=== PATIENT | female | born 1965 | race Two or more races ===

== ENCOUNTER 2018-02-02 08:37 | Emergency (ER) | payer OTHER ==
[2018-02-02] MEDS ORDERED: Sodium Chloride 0.9% 10 ML Syringe FLUSH PRN (08:50)
--- NOTE | 2018-02-02 09:17 | CT ---
CT cervical spine Technique: Multiple axial sections were obtained from above the C1 inferiorly to the bottom of T2. Reconstructed sagittal and coronal images were reviewed. Comparison: No prior cervical spine imaging. Findings: Mild disc space narrowing is noted at C4-C5, C5-C6 and C6-C7. Slight posterior osteophytes are noted C5-C6 and C6-C7. Anterior osteophytes are noted at C3-C4 through C6-C7. Vertebral body heights are maintained. Posterior skull base is intact. Vertebral bodies and posterior arches are intact. No fracture is seen. Mild right-sided neural foraminal stenosis is noted at C5-C6. No bony central canal stenosis is seen. Mild degenerative change is scattered throughout the apophyseal joints. Mild degenerative spurring is noted within the uncovertebral joints at C6-C7. Impression: 1. Mild diffuse degenerative change. 2. No acute fracture or abnormal subluxation is seen. Diagnostic code #2
--- NOTE | 2018-02-02 09:18 | CT ---
Head CT Technique: Multiple axial sections through the brain were obtained. Intravenous contrast was not utilized. Comparison: Prior head CT study of 11/13/15. Findings: Ventricles along with basal cisterns and sulci over the convexities appear within normal limits for the patient's age. No abnormal parenchymal densities are seen. No evidence of intracranial hemorrhage. No midline shift or mass effect is seen. Bone window settings were reviewed which shows no discrete calvarial abnormality. Visualized sinuses are clear. Impression: 1. Nothing acute is identified on noncontrast head CT exam. Diagnostic code #1
[2018-02-02] MEDS ORDERED: Acetaminophen/HYDROcodone 325-5 MG Tab PO ONE (09:47)
--- NOTE | 2018-02-02 09:51 | CR ---
Left knee: Four views of the left knee were obtained. Comparison: No prior study. Medial and lateral joint spaces are maintained in height. No joint effusion is seen. No fracture or other acute bony abnormality is seen. Small cyst is noted in a subchondral location within the patella which is felt to represent minimal degenerative change. Impression: 1. Incidental finding. Nothing acute is appreciated on left knee exam. Diagnostic code #2
--- NOTE | 2018-02-02 09:51 | CR ---
Chest: Frontal view of the chest was obtained. Comparison: Prior chest x-ray of 10/22/13 is available. Heart size is normal. Tortuous thoracic aorta is seen. Small hiatal hernia is seen. Nodule is identified within the right mid chest which appears stable and compatible with a granuloma. Lungs otherwise are clear. No pneumothorax is seen. No discrete bony abnormality is noted. Incidental note of scoliosis. Impression: 1. Incidental findings. Nothing acute is appreciated on frontal chest x-ray. Diagnostic code #2
--- NOTE | 2018-02-02 09:51 | CR ---
Right knee: Four views of the right knee were obtained. Comparison: No prior knee exam. Medial and lateral joint compartments are maintained in height. No joint effusion is seen. Minimal osteophytes are noted off the patella. No fracture or other abnormality is seen. Impression: 1. Minimal degenerative change. Nothing acute seen on right knee exam. Diagnostic code #2
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
[2018-02-02 10:40] VITALS: BP 138/88
== END 2018-02-02 10:38 | disposition home or self-care (01) ==
LOC: JD.ED 08:37
DX: S16.1XXA Strain of muscle, fascia and tendon at neck level, initial encounter (principal); S80.01XA Contusion of right knee, initial encounter; S80.02XA Contusion of left knee, initial encounter; T22.112A Burn of first degree of left forearm, initial encounter; Z88.5 Allergy status to narcotic agent; Z79.899 Other long term (current) drug therapy; V49.9XXA Car occupant (driver) (passenger) injured in unspecified traffic accident, initial encounter
CPT/HCPCS: 36415; 70450; 71045; 72125; 73564; 80053; 81001; 83690; 85025; 99285; A9270; G0480

== ENCOUNTER 2018-05-15 07:50 | Inpatient (IN) | payer MEDICAID ==
[~2018-05-15 07:50] MED LIST: Lactated Ringers 1,000 ML IV SCH; Lidocaine 1%/Sod Bicarbonate in NS 8.4% 1 ML Syringe IDERM PRN; Sodium Chloride 0.9% 10 ML Syringe FLUSH PRN
[2018-05-15] MEDS ORDERED: Lidocaine 1% with EPINEPHrine 1:100,000 20 ML MDV ONE (08:20)
[2018-05-15] MEDS ORDERED: Sodium Chloride 0.9% 50 ML SDV ONE (08:20)
[2018-05-15] MEDS ORDERED: Bupivacaine 0.5% 30 ML SDV ONE (08:20)
--- NOTE | 2018-05-15 08:33 | PCM.PREANE ---
Preanesthetic Assessment - Anesthesia/Transfusion/Family Hx Anesthesia History: Prior Anesthesia Without Reaction Family History of Anesthesia Reaction: No Transfusion History: No Prior Transfusion(s) Type of Transfusion Reactions: Reports: Unknown - Review of Systems General: No Symptoms Pulmonary: No Symptoms Cardiovascular: Dyspnea on Exertion Gastrointestinal: No Symptoms Neurological: No Symptoms Other: Reports: None - Physical Assessment NPO Status Date: 05/14/18 NPO Status Time: 00:00 Pulse: 66 O2 Sat by Pulse Oximetry: 95 Respiratory Rate: 20 Blood Pressure: 122/78 Temperature: 36.5 C Height: 1.57 m Weight: 80.286 kg ASA Class: 2 Mental Status: Alert & Oriented x3 Dentition: Reports: [place](s), Bridge (top) Thyro-Mental Finger Breadths: 2 Mouth Opening Finger Breadths: 2 ROM/Head Extension: Full Lungs: Clear to Auscultation, Normal Respiratory Effort Cardiovascular: Regular Rate, Regular Rhythm - Lab Values: on chart - Imaging/EKG Impressions: on chart SB 82 - Allergies Allergies/Adverse Reactions: Allergies Allergy/AdvReac Type Severity Reaction Status Date / Time codeine Allergy Chest Verified 05/14/18 13:41 Tightness - Blood Blood Available: No Product(s) Available: None - Anesthesia Plan Pre-Op Medication Ordered: None - Acknowledgements Anesthesia Type Planned: General Anesthesia Pt an Appropriate Candidate for the Planned Anesthesia: Yes Alternatives and Risks of Anesthesia Discussed w Pt/Guardian: Yes Pt/Guardian Understands and Agrees with Anesthesia Plan: Yes Additional Comments: No Blood due to her Jyoti. 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 (See Below) Other OB/BYN History: atrophic vaginitis, fibroid, pelvic cramping Musculoskeletal History: Reports: None Neurological History: Reports: Headaches, Chronic Psychiatric History: Reports: Depression Endocrine/Metabolic History: Reports: Obesity/BMI 30+, Vitamin D Deficiency Hematologic History: Reports: None Immunologic History: Reports: None Oncologic (Cancer) History: Reports: None Dermatologic History: Reports: None - Past Surgical History Head Surgeries/Procedures: Reports: None HEENT Surgical History: Reports: Cataract Surgery Cardiovascular Surgical History: Reports: None Respiratory Surgical History: Reports: None GI Surgical History: Reports: Appendectomy, Cholecystectomy, Hernia Repair/Other Other GI Surgeries/Procedures: suargery esophagus Endocrine Surgical History: Reports: None Neurological Surgical History: Reports: None Musculoskeletal Surgical History: Reports: None Oncologic Surgical History: Reports: None Dermatological Surgical History: Reports: None - SUBSTANCE USE Smoking Status *Q: Never Smoker Tobacco Use Within Last Twelve Months: No Second Hand Smoke Exposure: No Days Per Week of Alcohol Use: 0 Number of Drinks Per Day: 0 Total Drinks Per Week: 0 Recreational Drug Use History: No - HOME MEDS Home Medications: Home Meds Omeprazole 20 mg PO BID 05/14/18 [History] - CURRENT (IN HOUSE) MEDS Current Meds: Current Medications Lactated Ringer's (Ringers, Lactated) 1,000 mls @ 125 mls/hr IV ASDIRECTED ELISEO Stop: 05/15/18 23:00 Lidocaine/Sodium Bicarbonate (Buffered Lidocaine 1% In Ns 8.4%) 0.25 ml IDERM ONETIME PRN PRN Reason: Prior to IV Start Stop: 05/15/18 18:00 Sodium Chloride (Saline Flush) 10 ml FLUSH ASDIRECTED PRN PRN Reason: Keep Vein Open Stop: 05/15/18 18:00 Discontinued Medications Bupivacaine HCl (Marcaine 0.5%) Confirm Administered Dose 30 ml .ROUTE .STK-MED ONE Stop: 05/15/18 08:21 Lidocaine/Epinephrine (Xylocaine 1% With Epinephrine 1:100,000) Confirm Administered Dose 20 ml .ROUTE .STK-MED ONE Stop: 05/15/18 08:21 Sodium Chloride (Normal Saline) Confirm Administered Dose 50 ml .ROUTE .STK-MED ONE Stop: 05/15/18 08:21
[2018-05-15] MEDS ORDERED: Ondansetron 4 MG/2 ML SDV ONE (08:37)
[2018-05-15] MEDS ORDERED: Midazolam 1 MG/ML 2 ML SDV ONE (08:37)
[2018-05-15] MEDS ORDERED: Propofol 200 MG/20 ML SDV ONE (08:37)
[2018-05-15] MEDS ORDERED: Rocuronium 50 MG/5 ML Vial ONE (08:37)
[2018-05-15] MEDS ORDERED: fentaNYL 250 MCG/5 ML SDV ONE (08:37)
[2018-05-15] MEDS ORDERED: Lidocaine 1% 4 ML ONE (08:37)
[2018-05-15] MEDS ORDERED: Dexamethasone 4 MG/ML 5 ML MDV ONE (08:39)
[2018-05-15] MEDS ORDERED: ceFAZolin 1 GM Vial ONE (08:40)
[2018-05-15] MEDS ORDERED: Phenylephrine/Normal Saline 100 MCG/ML 10 ML Syringe ONE (09:14)
[2018-05-15] MEDS ORDERED: Lactated Ringers 1,000 ML ONE ×2 (09:15→10:40)
[2018-05-15] MEDS ORDERED: Meperidine 50 MG/ML Vial IVPUSH PRN (09:15)
[2018-05-15] MEDS ORDERED: HYDROmorphone 0.5 MG/0.5 ML Syringe IVPUSH PRN ×2 (09:15→14:22)
[2018-05-15] MEDS ORDERED: fentaNYL 100 MCG/2 ML SDV IVPUSH PRN (09:15)
[2018-05-15] MEDS ORDERED: Ondansetron 4 MG/2 ML SDV IVPUSH PRN ×2 (09:15→14:22)
[2018-05-15] MEDS ORDERED: HYDROmorphone 0.5 MG/0.5 ML Syringe ONE ×2 (09:39→10:06)
[2018-05-15] MEDS ORDERED: Ketamine 500 mg/10 ML MDV ONE (10:07)
[2018-05-15] MEDS ORDERED: Ketorolac 30 MG/ML SDV ONE (11:06)
--- NOTE | 2018-05-15 11:37 | PCM.POSTAN ---
POST ANESTHESIA ASSESSMENT - MENTAL STATUS Mental Status: Somnolent - VITAL SIGNS Pulse Rate: 74 SaO2: 96 Resp Rate: 17 Blood Pressure: 103/87 Temperature: 97 F - RESPIRATORY Respiratory Status: Respiratory Rate WNL, Airway Patent, O2 Saturation Stable, Supplemental Oxygen - CARDIOVASCULAR CV Status: Pulse Rate WNL, Blood Pressure Stable - GASTROINTESTINAL GI Status: No Symptoms - PAIN Pain Score: 0 - POST OP HYDRATION Hydration Status: Adequate & Stable
--- NOTE | 2018-05-15 12:01 | PCM.OPNOTE ---
- General Post-Op/Procedure Note Date of Surgery/Procedure: 05/15/18 Operative Procedure(s): Laparoscopic-assisted vaginal hysterectomy, bilateral salpingectomy, anterior repair and transvaginal tape mid urethral sling Findings: Overall normal-appearing uterus with normal-appearing bilateral tubes and ovaries. Grade 2-3 cystocele, minimal rectocele Pre Op Diagnosis: Female pelvic pain, dysmenorrhea, cystocele with rectocele and mixed stress and urge urinary incontinence Post-Op Diagnosis: Same Anesthesia Technique: General ET Tube Primary Surgeon: Mode Jones Anesthesia Provider: Seun Salgado Compress Engineer: Enoch Bernstein Reason Compress Engineer Was Necessary: Assist with retraction for visualization as well as laparoscopic skills for the laparoscopic-assisted vaginal hysterectomy for patient safety and reduction of morbidity and mortality Role of Compress Engineer: Retraction and allow for visualization during surgery as well as laparoscopic skills Pathology: Cervix, uterus and bilateral fallopian tubes Fluid Replacement, Intraop: 2,000 Output, Urine Amount: 275 EBL in mLs: 100 Complications: None Condition: Good Free Text/Narrative:: The patient was seen in the preoperative holding area and risks, benefits, indications, and alternatives of the procedure were reviewed with the patient and she desired to proceed with a laparoscopic assisted vaginal hysterectomy, bilateral salpingectomy, possible unilateral or bilateral salpingo-oophorectomy , possible total abdominal hysterectomy, anterior repair, possible posterior repair and mid urethral sling. Consents were reviewed. The patient was taken back to the OR and given general anesthesia with an endotracheal tube which was placed without difficulty. She was placed in dorsal lithotomy position using Yellofin stirrups. She was prepped and draped in normal sterile fashion. A Mckeon catheter was placed without difficulty. Attention was then turned to her umbilicus where a previous laparoscopic scar was visualized. This was injected with 0.5% Marcaine and a 5 mm stab incision was made with a scalpel and a Veress needle was then inserted through the incision. The gas was turned on, with an opening pressure of 6 mmHg. Pneumoperitoneum was continued until 15 mmHg pressure. A 5 mm trocar was then inserted under direct visualization through the incision without difficulty. A global view of the abdomen was taken and noted to be overall free of adhesions and it was felt that the case would be able to be accomplished laparoscopically. Attention was then turned to the suprapubic area and the skin was injected with local anesthetic. A skin incision was made using a scalpel. A 5 mm trocar was then inserted under direct visualization with laparoscope. Attention was then turned to the patient's right lower quadrant where an avascular space approximately snf between the ASIS and the umbilicus was identified. Local anesthetic was injected and a 5 mm incision was made with a scalpel. A 5 mm trocar was then inserted under direct visualization of the laparoscope. Attention was then turned to the left lower quadrant, where again an avascular portion of the abdominal wall was identified approximately snf between the ASIS and the umbilicus. Local anesthetic was injected and a scalpel was used to make a 5 mm incision. A 5 mm trocar was inserted under direct visualization with the laparoscope. Attention was then turned to the pelvis where the uterus was visualized and noted be normal in appearance with normal appearing bilateral fallopian tubes and normal-appearing bilateral ovaries. A LigaSure vessel sealing device was introduced and was used to transect the right fallopian tube and round ligament. The broad ligament connecting the right fallopian tube was transected from the ovary and underlying tissue. The right round ligament was then transected using the LigaSure device. The utero-ovarian ligament was then transected using the LigaSure device. The right side of the uterus and broad ligament were then transected using the LigaSure device until the level of the uterovesical peritoneal reflection. This was repeated on the patient's left side. The fallopian tube was transected from the underlying tissue using the LigaSure device. The utero-ovarian ligament was then transected using LigaSure device. Round ligament was transected using LigaSure device and the broad ligament was transected to the level of the uterovesical peritoneal reflection. The pelvis was then inspected for hemostasis at this time and hemostasis was noted. All instruments were removed from the abdomen. Attention was then turned to the patient's peritoneum where a weighted speculum was placed into the vagina and a [place] retractor was used to visualize the cervix. The cervix was grasped with a double-tooth tenaculum. The cervical reflection point was then injected circumferentially with 0.25% lidocaine with epinephrine. The cervix was then circumferentially incised with a scalpel. The bladder was then dissected off the pubovesical cervical fascia anteriorly with Metzenbaum scissors. The same procedure was performed posteriorly and the posterior cul-de-sac was entered sharply without difficulty using Metzenbaum scissors. At this point, a Maria Isabel clamp was placed over the uterosacral ligaments on the patient's left side. These were transected and suture ligated with 0 Monocryl. This was repeated on the patient's right side. Hemostasis was assured. The cardinal ligaments were then clamped on both sides, transected and suture ligated with 0 Monocryl. The uterine artery on the patient's right side side and the remainder of the broad ligament were then serially clamped with Maria Isabel clamps, transected and suture ligated with 0 Monocryl on both sides. Excellent hemostasis was noted. The cervix and uterus was able to be delivered at this time. There was noted to be bleeding from the right uterine artery pedicle and this was clamped with a Maria Isabel clamp transected and suture ligated using 0 Monocryl suture. The posterior vaginal cuff was closed with running locked sutures of 0 Monocryl. There was noted to be a grade 2-3 cystocele and grade 1 rectocele. The vaginal mucosa overlying the bladder was grasped using Allis clamps and was injected using [0.25% lidocaine with epinephrine]. The mucosa was then excised in a triangular fashion using a scalpel. The lateral sides of the bladder the mucosa was undermined using Veloz scissors. The vesicovaginal fascia was then reapproximated using 0-Monocryl suture with box sutures. The incision was closed using 3-0 Monocryl sutures in a running locked fashion. The vaginal cuff was then closed in a horizontal fashion using running sutures with 0 Monocryl suture. All instruments were removed from the vagina. Attention was then turned to the abdomen where a laparoscope was inserted and was used to check for hemostasis. Hemostasis was noted at this time. The gas was then evacuated from the peritoneum and trocars removed. An Allis clamp was placed approximately 2 cm below the urethral opening. A second Allis clamp was placed 2 cm below the first Allis clamp. The vaginal mucosa was then injected with 0.25% lidocaine with epinephrine. A scalpel was used to make a midline incision through the vaginal mucosa. Veloz scissors were used to dissect the vaginal mucosa from the underlying tissue on the patient's right side. This was carried out to the pubic rami. This was repeated on the left side and completed without difficulty. Attention was then turned to the patient's mons and the skin was injected with 0.25% lidocaine with epinephrine and bilateral sides up proximally 2 cm from midline. A stab incision was made with a scalpel bilateral sides without complications. The urethral sling hook was then used on the patient's left side and placed through the stab incision and with a finger in the vagina behind the pubic rami, the tip of the hook was felt and then directed out through the midline vaginal incision. The transvaginal tape was attached to the hook and pulled through the incision. Attention was then turned to the patient's right side where, again, the transvaginal hook was placed through the stab incision and with a finger in the vagina was directed posterior to the lateral pubic rami and directed through the vaginal incision. The other end of the tape was attached to the hook and pulled through, making sure that the tape was flat on the patient's incision. A Veloz scissors was used to allow for a tension-free placement of the tape. A cystoscopy was then performed and there was no evidence of injury to the bladder without any evidence of sling going through the bladder and bilateral ureteral jets were noted. The ends of the tape were then cut at the level of the skin on the patient on both sides at the stab incisions. Attention was then turned to the midline incision, which was closed using 3-0 Monocryl in a running fashion. The case was complete at this time. The laparoscopic port sites were closed using 4-0 Monocryl suture and Dermabond. The urethral sling stab incisions were closed using Dermabond glue. The case was completed at this time and all instruments were removed. The Mckeon catheter was discontinued at this time. The patient was awoken from general anesthesia and taken to the PACU for recovery in stable condition. She will be discharged to home once she is able to meet all postoperative milestones including tolerating small amount of oral intake and liquids, ambulate without difficulty, her pain controlled with oral medications and able to void without difficulty. She will follow-up in the clinic in 2-3 weeks or earlier as needed. Sponge, lap, needle, and instrument counts were correct x 2.
[2018-05-15] MEDS ORDERED: Famotidine 20 MG/2 ML SDV IVPUSH ONE (12:27)
[2018-05-15] MEDS ORDERED: Magnesium Hydroxide 400 MG/5 ML Susp 30 ML Cup PO PRN (14:22)
[2018-05-15] MEDS ORDERED: Acetaminophen/oxyCODONE 325-5 MG Tab PO PRN ×2 (14:22)
[2018-05-15] MEDS ORDERED: Promethazine 12.5 MG in Sodium Chloride 0.9% 50 ML IV PRN (14:22)
[2018-05-15] MEDS ORDERED: Ketorolac 15 MG/ML SDV IVPUSH SCH (14:22)
[2018-05-15] MEDS: Ondansetron 4 MG/2 ML SDV IVPUSH PRN ×2 (16:01→22:57)
[2018-05-15] MEDS: Ketorolac 15 MG/ML SDV IVPUSH SCH ×2 (17:04→23:03)
[2018-05-15] MEDS: Docusate Sodium 100 MG Cap PO SCH (23:25)
[2018-05-15] MEDS: Famotidine 20 MG Tab PO SCH (23:25)
[2018-05-16] MEDS ORDERED: Acetaminophen Soln 650 MG/20.3 ML UD Cup PO ONE (00:31)
[2018-05-16] MEDS: cefOXitin 1 GM in Premix Bag 1 BAG IV SCH ×2 (00:54→06:49)
[2018-05-16] MEDS: Ketorolac 15 MG/ML SDV IVPUSH SCH (05:24)
[2018-05-16 06:01] VITALS: BP 130/73
[2018-05-16] MEDS: Docusate Sodium 100 MG Cap PO SCH (08:05)
[2018-05-16] MEDS: Famotidine 20 MG Tab PO SCH (08:05)
[2018-05-16] MEDS ORDERED: Ibuprofen 600 MG Tab PO ONE (10:35)
--- NOTE | 2018-05-16 10:53 | PCM.DCSUM1 ---
Discharge Summary - Hospital Course Free Text/Narrative:: [facility] Post-Op/Procedure Note Patient Name: ALICIA CAGLE Date of : 61 Patient Status: Inpatient Attending Provider: Mode Jones Date: 05/15/18 11:50 Initialization Date: 05/15/18 11:50 - General Post-Op/Procedure Note Date of Surgery/Procedure: 05/15/18 Operative Procedure(s): Laparoscopic-assisted vaginal hysterectomy, bilateral salpingectomy, anterior repair and transvaginal tape mid urethral sling Findings: Overall normal-appearing uterus with normal-appearing bilateral tubes and ovaries. Grade 2-3 cystocele, minimal rectocele Pre Op Diagnosis: Female pelvic pain, dysmenorrhea, cystocele with rectocele and mixed stress and urge urinary incontinence Post-Op Diagnosis: Same Anesthesia Technique: General ET Tube Primary Surgeon: Mode Jones Anesthesia Provider: Seun Salgado Receiver Bulk System: Enoch Bernstein Reason Receiver Bulk System Was Necessary: Assist with retraction for visualization as well as laparoscopic skills for the laparoscopic-assisted vaginal hysterectomy for patient safety and reduction of morbidity and mortality Role of Receiver Bulk System: Retraction and allow for visualization during surgery as well as laparoscopic skills Pathology: Cervix, uterus and bilateral fallopian tubes Fluid Replacement, Intraop: 2,000 Output, Urine Amount: 275 EBL in mLs: 100 Complications: None Condition: Good Free Text/Narrative:: The patient was seen in the preoperative holding area and risks, benefits, indications, and alternatives of the procedure were reviewed with the patient and she desired to proceed with a laparoscopic assisted vaginal hysterectomy, bilateral salpingectomy, possible unilateral or bilateral salpingo-oophorectomy , possible total abdominal hysterectomy, anterior repair, possible posterior repair and mid urethral sling. Consents were reviewed. The patient was taken back to the OR and given general anesthesia with an endotracheal tube which was placed without difficulty. She was placed in dorsal lithotomy position using Yellofin stirrups. She was prepped and draped in normal sterile fashion. A Mckeon catheter was placed without difficulty. Attention was then turned to her umbilicus where a previous laparoscopic scar was visualized. This was injected with 0.5% Marcaine and a 5 mm stab incision was made with a scalpel and a Veress needle was then inserted through the incision. The gas was turned on, with an opening pressure of 6 mmHg. Pneumoperitoneum was continued until 15 mmHg pressure. A 5 mm trocar was then inserted under direct visualization through the incision without difficulty. A global view of the abdomen was taken and noted to be overall free of adhesions and it was felt that the case would be able to be accomplished laparoscopically. Attention was then turned to the suprapubic area and the skin was injected with local anesthetic. A skin incision was made using a scalpel. A 5 mm trocar was then inserted under direct visualization with laparoscope. Attention was then turned to the patient's right lower quadrant where an avascular space approximately prison between the ASIS and the umbilicus was identified. Local anesthetic was injected and a 5 mm incision was made with a scalpel. A 5 mm trocar was then inserted under direct visualization of the laparoscope. Attention was then turned to the left lower quadrant, where again an avascular portion of the abdominal wall was identified approximately prison between the ASIS and the umbilicus. Local anesthetic was injected and a scalpel was used to make a 5 mm incision. A 5 mm trocar was inserted under direct visualization with the laparoscope. Attention was then turned to the pelvis where the uterus was visualized and noted be normal in appearance with normal appearing bilateral fallopian tubes and normal-appearing bilateral ovaries. A LigaSure vessel sealing device was introduced and was used to transect the right fallopian tube and round ligament. The broad ligament connecting the right fallopian tube was transected from the ovary and underlying tissue. The right round ligament was then transected using the LigaSure device. The utero-ovarian ligament was then transected using the LigaSure device. The right side of the uterus and broad ligament were then transected using the LigaSure device until the level of the uterovesical peritoneal reflection. This was repeated on the patient's left side. The fallopian tube was transected from the underlying tissue using the LigaSure device. The utero-ovarian ligament was then transected using LigaSure device. Round ligament was transected using LigaSure device and the broad ligament was transected to the level of the uterovesical peritoneal reflection. The pelvis was then inspected for hemostasis at this time and hemostasis was noted. All instruments were removed from the abdomen. Attention was then turned to the patient's peritoneum where a weighted speculum was placed into the vagina and a [place] retractor was used to visualize the cervix. The cervix was grasped with a double-tooth tenaculum. The cervical reflection point was then injected circumferentially with 0.25% lidocaine with epinephrine. The cervix was then circumferentially incised with a scalpel. The bladder was then dissected off the pubovesical cervical fascia anteriorly with Metzenbaum scissors. The same procedure was performed posteriorly and the posterior cul-de-sac was entered sharply without difficulty using Metzenbaum scissors. At this point, a Maria Isabel clamp was placed over the uterosacral ligaments on the patient's left side. These were transected and suture ligated with 0 Monocryl. This was repeated on the patient's right side. Hemostasis was assured. The cardinal ligaments were then clamped on both sides, transected and suture ligated with 0 Monocryl. The uterine artery on the patient's right side side and the remainder of the broad ligament were then serially clamped with Maria Isabel clamps, transected and suture ligated with 0 Monocryl on both sides. Excellent hemostasis was noted. The cervix and uterus was able to be delivered at this time. There was noted to be bleeding from the right uterine artery pedicle and this was clamped with a Maria Isabel clamp transected and suture ligated using 0 Monocryl suture. The posterior vaginal cuff was closed with running locked sutures of 0 Monocryl. There was noted to be a grade 2-3 cystocele and grade 1 rectocele. The vaginal mucosa overlying the bladder was grasped using Allis clamps and was injected using [0.25% lidocaine with epinephrine]. The mucosa was then excised in a triangular fashion using a scalpel. The lateral sides of the bladder the mucosa was undermined using Veloz scissors. The vesicovaginal fascia was then reapproximated using 0-Monocryl suture with box sutures. The incision was closed using 3-0 Monocryl sutures in a running locked fashion. The vaginal cuff was then closed in a horizontal fashion using running sutures with 0 Monocryl suture. All instruments were removed from the vagina. Attention was then turned to the abdomen where a laparoscope was inserted and was used to check for hemostasis. Hemostasis was noted at this time. The gas was then evacuated from the peritoneum and trocars removed. An Allis clamp was placed approximately 2 cm below the urethral opening. A second Allis clamp was placed 2 cm below the first Allis clamp. The vaginal mucosa was then injected with 0.25% lidocaine with epinephrine. A scalpel was used to make a midline incision through the vaginal mucosa. Veloz scissors were used to dissect the vaginal mucosa from the underlying tissue on the patient's right side. This was carried out to the pubic rami. This was repeated on the left side and completed without difficulty. Attention was then turned to the patient's mons and the skin was injected with 0.25% lidocaine with epinephrine and bilateral sides up proximally 2 cm from midline. A stab incision was made with a scalpel bilateral sides without complications. The urethral sling hook was then used on the patient's left side and placed through the stab incision and with a finger in the vagina behind the pubic rami, the tip of the hook was felt and then directed out through the midline vaginal incision. The transvaginal tape was attached to the hook and pulled through the incision. Attention was then turned to the patient's right side where, again, the transvaginal hook was placed through the stab incision and with a finger in the vagina was directed posterior to the lateral pubic rami and directed through the vaginal incision. The other end of the tape was attached to the hook and pulled through, making sure that the tape was flat on the patient's incision. A Veloz scissors was used to allow for a tension-free placement of the tape. A cystoscopy was then performed and there was no evidence of injury to the bladder without any evidence of sling going through the bladder and bilateral ureteral jets were noted. The ends of the tape were then cut at the level of the skin on the patient on both sides at the stab incisions. Attention was then turned to the midline incision, which was closed using 3-0 Monocryl in a running fashion. The case was complete at this time. The laparoscopic port sites were closed using 4-0 Monocryl suture and Dermabond. The urethral sling stab incisions were closed using Dermabond glue. The case was completed at this time and all instruments were removed. The Mckeon catheter was discontinued at this time. The patient was awoken from general anesthesia and taken to the PACU for recovery in stable condition. She will be discharged to home once she is able to meet all postoperative milestones including tolerating small amount of oral intake and liquids, ambulate without difficulty, her pain controlled with oral medications and able to void without difficulty. She will follow-up in the clinic in 2-3 weeks or earlier as needed. Sponge, lap, needle, and instrument counts were correct x 2. HPI Initial Comments: [facility] Post-Op/Procedure Note Patient Name: ALICIA CAGLE Date of : 61 Patient Status: Inpatient Attending Provider: Mode Jones Date: 05/15/18 11:50 Initialization Date: 05/15/18 11:50 - General Post-Op/Procedure Note Date of Surgery/Procedure: 05/15/18 Operative Procedure(s): Laparoscopic-assisted vaginal hysterectomy, bilateral salpingectomy, anterior repair and transvaginal tape mid urethral sling Findings: Overall normal-appearing uterus with normal-appearing bilateral tubes and ovaries. Grade 2-3 cystocele, minimal rectocele Pre Op Diagnosis: Female pelvic pain, dysmenorrhea, cystocele with rectocele and mixed stress and urge urinary incontinence Post-Op Diagnosis: Same Anesthesia Technique: General ET Tube Primary Surgeon: Mode Jones Anesthesia Provider: Seun Salgado Receiver Bulk System: Enoch Bernstein Reason Receiver Bulk System Was Necessary: Assist with retraction for visualization as well as laparoscopic skills for the laparoscopic-assisted vaginal hysterectomy for patient safety and reduction of morbidity and mortality Role of Receiver Bulk System: Retraction and allow for visualization during surgery as well as laparoscopic skills Pathology: Cervix, uterus and bilateral fallopian tubes Fluid Replacement, Intraop: 2,000 Output, Urine Amount: 275 EBL in mLs: 100 Complications: None Condition: Good Free Text/Narrative:: The patient was seen in the preoperative holding area and risks, benefits, indications, and alternatives of the procedure were reviewed with the patient and she desired to proceed with a laparoscopic assisted vaginal hysterectomy, bilateral salpingectomy, possible unilateral or bilateral salpingo-oophorectomy , possible total abdominal hysterectomy, anterior repair, possible posterior repair and mid urethral sling. Consents were reviewed. The patient was taken back to the OR and given general anesthesia with an endotracheal tube which was placed without difficulty. She was placed in dorsal lithotomy position using Yellofin stirrups. She was prepped and draped in normal sterile fashion. A Mckeon catheter was placed without difficulty. Attention was then turned to her umbilicus where a previous laparoscopic scar was visualized. This was injected with 0.5% Marcaine and a 5 mm stab incision was made with a scalpel and a Veress needle was then inserted through the incision. The gas was turned on, with an opening pressure of 6 mmHg. Pneumoperitoneum was continued until 15 mmHg pressure. A 5 mm trocar was then inserted under direct visualization through the incision without difficulty. A global view of the abdomen was taken and noted to be overall free of adhesions and it was felt that the case would be able to be accomplished laparoscopically. Attention was then turned to the suprapubic area and the skin was injected with local anesthetic. A skin incision was made using a scalpel. A 5 mm trocar was then inserted under direct visualization with laparoscope. Attention was then turned to the patient's right lower quadrant where an avascular space approximately prison between the ASIS and the umbilicus was identified. Local anesthetic was injected and a 5 mm incision was made with a scalpel. A 5 mm trocar was then inserted under direct visualization of the laparoscope. Attention was then turned to the left lower quadrant, where again an avascular portion of the abdominal wall was identified approximately prison between the ASIS and the umbilicus. Local anesthetic was injected and a scalpel was used to make a 5 mm incision. A 5 mm trocar was inserted under direct visualization with the laparoscope. Attention was then turned to the pelvis where the uterus was visualized and noted be normal in appearance with normal appearing bilateral fallopian tubes and normal-appearing bilateral ovaries. A LigaSure vessel sealing device was introduced and was used to transect the right fallopian tube and round ligament. The broad ligament connecting the right fallopian tube was transected from the ovary and underlying tissue. The right round ligament was then transected using the LigaSure device. The utero-ovarian ligament was then transected using the LigaSure device. The right side of the uterus and broad ligament were then transected using the LigaSure device until the level of the uterovesical peritoneal reflection. This was repeated on the patient's left side. The fallopian tube was transected from the underlying tissue using the LigaSure device. The utero-ovarian ligament was then transected using LigaSure device. Round ligament was transected using LigaSure device and the broad ligament was transected to the level of the uterovesical peritoneal reflection. The pelvis was then inspected for hemostasis at this time and hemostasis was noted. All instruments were removed from the abdomen. Attention was then turned to the patient's peritoneum where a weighted speculum was placed into the vagina and a [place] retractor was used to visualize the cervix. The cervix was grasped with a double-tooth tenaculum. The cervical reflection point was then injected circumferentially with 0.25% lidocaine with epinephrine. The cervix was then circumferentially incised with a scalpel. The bladder was then dissected off the pubovesical cervical fascia anteriorly with Metzenbaum scissors. The same procedure was performed posteriorly and the posterior cul-de-sac was entered sharply without difficulty using Metzenbaum scissors. At this point, a Maria Isabel clamp was placed over the uterosacral ligaments on the patient's left side. These were transected and suture ligated with 0 Monocryl. This was repeated on the patient's right side. Hemostasis was assured. The cardinal ligaments were then clamped on both sides, transected and suture ligated with 0 Monocryl. The uterine artery on the patient's right side side and the remainder of the broad ligament were then serially clamped with Maria Isabel clamps, transected and suture ligated with 0 Monocryl on both sides. Excellent hemostasis was noted. The cervix and uterus was able to be delivered at this time. There was noted to be bleeding from the right uterine artery pedicle and this was clamped with a Maria Isabel clamp transected and suture ligated using 0 Monocryl suture. The posterior vaginal cuff was closed with running locked sutures of 0 Monocryl. There was noted to be a grade 2-3 cystocele and grade 1 rectocele. The vaginal mucosa overlying the bladder was grasped using Allis clamps and was injected using [0.25% lidocaine with epinephrine]. The mucosa was then excised in a triangular fashion using a scalpel. The lateral sides of the bladder the mucosa was undermined using Veloz scissors. The vesicovaginal fascia was then reapproximated using 0-Monocryl suture with box sutures. The incision was closed using 3-0 Monocryl sutures in a running locked fashion. The vaginal cuff was then closed in a horizontal fashion using running sutures with 0 Monocryl suture. All instruments were removed from the vagina. Attention was then turned to the abdomen where a laparoscope was inserted and was used to check for hemostasis. Hemostasis was noted at this time. The gas was then evacuated from the peritoneum and trocars removed. An Allis clamp was placed approximately 2 cm below the urethral opening. A second Allis clamp was placed 2 cm below the first Allis clamp. The vaginal mucosa was then injected with 0.25% lidocaine with epinephrine. A scalpel was used to make a midline incision through the vaginal mucosa. Veloz scissors were used to dissect the vaginal mucosa from the underlying tissue on the patient's right side. This was carried out to the pubic rami. This was repeated on the left side and completed without difficulty. Attention was then turned to the patient's mons and the skin was injected with 0.25% lidocaine with epinephrine and bilateral sides up proximally 2 cm from midline. A stab incision was made with a scalpel bilateral sides without complications. The urethral sling hook was then used on the patient's left side and placed through the stab incision and with a finger in the vagina behind the pubic rami, the tip of the hook was felt and then directed out through the midline vaginal incision. The transvaginal tape was attached to the hook and pulled through the incision. Attention was then turned to the patient's right side where, again, the transvaginal hook was placed through the stab incision and with a finger in the vagina was directed posterior to the lateral pubic rami and directed through the vaginal incision. The other end of the tape was attached to the hook and pulled through, making sure that the tape was flat on the patient's incision. A Veloz scissors was used to allow for a tension-free placement of the tape. A cystoscopy was then performed and there was no evidence of injury to the bladder without any evidence of sling going through the bladder and bilateral ureteral jets were noted. The ends of the tape were then cut at the level of the skin on the patient on both sides at the stab incisions. Attention was then turned to the midline incision, which was closed using 3-0 Monocryl in a running fashion. The case was complete at this time. The laparoscopic port sites were closed using 4-0 Monocryl suture and Dermabond. The urethral sling stab incisions were closed using Dermabond glue. The case was completed at this time and all instruments were removed. The Mckeon catheter was discontinued at this time. The patient was awoken from general anesthesia and taken to the PACU for recovery in stable condition. She will be discharged to home once she is able to meet all postoperative milestones including tolerating small amount of oral intake and liquids, ambulate without difficulty, her pain controlled with oral medications and able to void without difficulty. She will follow-up in the clinic in 2-3 weeks or earlier as needed. Sponge, lap, needle, and instrument counts were correct x 2. Brief History: [facility] . Post-Op/Procedure [facility]. [facility] [id number]. Date of : Patient Status: Inpatient. Attending Provider: Mode Jonescount Number : [id number]. Date: 05/15/18 11:50Initialization Date: 05/15/18 11:50. - General Post-Op/Procedure Note. Date of Surgery/Procedure: 05/15/18. Operative Procedure(s): Laparoscopic-assisted vaginal hysterectomy, bilateral salpingectomy, anterior repair and transvaginal tape mid urethral sling. Findings: Overall normal-appearing uterus with normal-appearing bilateral tubes and ovaries. Grade 2-3 cystocele, minimal rectocele. Pre Op Diagnosis: Female pelvic pain, dysmenorrhea, cystocele with rectocele and mixed stress and urge urinary incontinence. Post-Op Diagnosis: Same. Anesthesia Technique: General ET Tube. Primary Surgeon: Mode Jones. Anesthesia Provider: Seun Salgado. Receiver Bulk System: Enoch Bernstein. Reason Receiver Bulk System Was Necessary: Assist with retraction for visualization as well as laparoscopic skills for the laparoscopic-assisted vaginal hysterectomy for patient safety and reduction of morbidity and mortality. Role of Receiver Bulk System: Retraction and allow for visualization during surgery as well as laparoscopic skills. Pathology: Cervix , uterus and bilateral fallopian tubes. Fluid Replacement, Intraop: 2,000. Output, Urine Amount: 275. EBL in mLs: 100. Complications: None. Condition: Good. Free Text/Narrative:: The patient was seen in the preoperative holding area and risks, benefits, indications, and alternatives of the procedure were reviewed with the patient and she desired to proceed with a laparoscopic assisted vaginal hysterectomy, bilateral salpingectomy, possible unilateral or bilateral salpingo-oophorectomy, possible total abdominal hysterectomy, anterior repair, possible posterior repair and mid urethral sling. Consents were reviewed. The patient was taken back to the OR and given general anesthesia with an endotracheal tube which was placed without difficulty. She was placed in dorsal lithotomy position using Yellofin stirrups. She was prepped and draped in normal sterile fashion. A Mckeon catheter was placed without difficulty. Attention was then turned to her umbilicus where a previous laparoscopic scar was visualized. This was injected with 0.5% Marcaine and a 5 mm stab incision was made with a scalpel and a Veress needle was then inserted through the incision. The gas was turned on, with an opening pressure of 6 mmHg. Pneumoperitoneum was continued until 15 mmHg pressure. A 5 mm trocar was then inserted under direct visualization through the incision without difficulty. A global view of the abdomen was taken and noted to be overall free of adhesions and it was felt that the case would be able to be accomplished laparoscopically. Attention was then turned to the suprapubic area and the skin was injected with local anesthetic. A skin incision was made using a scalpel. A 5 mm trocar was then inserted under direct visualization with laparoscope. Attention was then turned to the patient's right lower quadrant where an avascular space approximately prison between the ASIS and the umbilicus was identified. Local anesthetic was injected and a 5 mm incision was made with a scalpel. A 5 mm trocar was then inserted under direct visualization of the laparoscope. Attention was then turned to the left lower quadrant, where again an avascular portion of the abdominal wall was identified approximately prison between the ASIS and the umbilicus. Local anesthetic was injected and a scalpel was used to make a 5 mm incision. A 5 mm trocar was inserted under direct visualization with the laparoscope. Attention was then turned to the pelvis where the uterus was visualized and noted be normal in appearance with normal appearing bilateral fallopian tubes and normal-appearing bilateral ovaries. A LigaSure vessel sealing device was introduced and was used to transect the right fallopian tube and round ligament. The broad ligament connecting the right fallopian tube was transected from the ovary and underlying tissue. The right round ligament was then transected using the LigaSure device. The utero-ovarian ligament was then transected using the LigaSure device. The right side of the uterus and broad ligament were then transected using the LigaSure device until the level of the uterovesical peritoneal reflection. This was repeated on the patient's left side. The fallopian tube was transected from the underlying tissue using the LigaSure device. The utero-ovarian ligament was then transected using LigaSure device. Round ligament was transected using LigaSure device and the broad ligament was transected to the level of the uterovesical peritoneal reflection. The pelvis was then inspected for hemostasis at this time and hemostasis was noted. All instruments were removed from the abdomen. Attention was then turned to the patient's peritoneum where a weighted speculum was placed into the vagina and a [place] retractor was used to visualize the cervix. The cervix was grasped with a double-tooth tenaculum. The cervical reflection point was then injected circumferentially with 0.25% lidocaine with epinephrine. The cervix was then circumferentially incised with a scalpel. The bladder was then dissected off the pubovesical cervical fascia anteriorly with Metzenbaum scissors. The same procedure was performed posteriorly and the posterior cul-de-sac was entered sharply without difficulty using Metzenbaum scissors. At this point, a Maria Isabel clamp was placed over the uterosacral ligaments on the patient's left side. These were transected and suture ligated with 0 Monocryl. This was repeated on the patient's right side. Hemostasis was assured. The cardinal ligaments were then clamped on both sides, transected and suture ligated with 0 Monocryl. The uterine artery on the patient's right side side and the remainder of the broad ligament were then serially clamped with Maria Isabel clamps, transected and suture ligated with 0 Monocryl on both sides. Excellent hemostasis was noted. The cervix and uterus was able to be delivered at this time. There was noted to be bleeding from the right uterine artery pedicle and this was clamped with a Maria Isabel clamp transected and suture ligated using 0 Monocryl suture. The posterior vaginal cuff was closed with running locked sutures of 0 Monocryl. There was noted to be a grade 2-3 cystocele and grade 1 rectocele. The vaginal mucosa overlying the bladder was grasped using Allis clamps and was injected using [0.25% lidocaine with epinephrine]. The mucosa was then excised in a triangular fashion using a scalpel. The lateral sides of the bladder the mucosa was undermined using Veloz scissors. The vesicovaginal fascia was then reapproximated using 0-Monocryl suture with box sutures. The incision was closed using 3-0 Monocryl sutures in a running locked fashion. The vaginal cuff was then closed in a horizontal fashion using running sutures with 0 Monocryl suture. All instruments were removed from the vagina. Attention was then turned to the abdomen where a laparoscope was inserted and was used to check for hemostasis. Hemostasis was noted at this time. The gas was then evacuated from the peritoneum and trocars removed. An Allis clamp was placed approximately 2 cm below the urethral opening. A second Allis clamp was placed 2 cm below the first Allis clamp. The vaginal mucosa was then injected with 0.25% lidocaine with epinephrine. A scalpel was used to make a midline incision through the vaginal mucosa. Veloz scissors were used to dissect the vaginal mucosa from the underlying tissue on the patient's right side. This was carried out to the pubic rami. This was repeated on the left side and completed without difficulty. Attention was then turned to the patient's mons and the skin was injected with 0.25% lidocaine with epinephrine and bilateral sides up proximally 2 cm from midline. A stab incision was made with a scalpel bilateral sides without complications. The urethral sling hook was then used on the patient's left side and placed through the stab incision and with a finger in the vagina behind the pubic rami, the tip of the hook was felt and then directed out through the midline vaginal incision. The transvaginal tape was attached to the hook and pulled through the incision. Attention was then turned to the patient's right side where, again, the transvaginal hook was placed through the stab incision and with a finger in the vagina was directed posterior to the lateral pubic rami and directed through the vaginal incision. The other end of the tape was attached to the hook and pulled through, making sure that the tape was flat on the patient's incision. A Veloz scissors was used to allow for a tension-free placement of the tape. A cystoscopy was then performed and there was no evidence of injury to the bladder without any evidence of sling going through the bladder and bilateral ureteral jets were noted. The ends of the tape were then cut at the level of the skin on the patient on both sides at the stab incisions. Attention was then turned to the midline incision, which was closed using 3-0 Monocryl in a running fashion. The case was complete at this time. The laparoscopic port sites were closed using 4-0 Monocryl suture and Dermabond. The urethral sling stab incisions were closed using Dermabond glue. The case was completed at this time and all instruments were removed. The Mckeon catheter was discontinued at this time. The patient was awoken from general anesthesia and taken to the PACU for recovery in stable condition. She will be discharged to home once she is able to meet all postoperative milestones including tolerating small amount of oral intake and liquids, ambulate without difficulty, her pain controlled with oral medications and able to void without difficulty. She will follow-up in the clinic in 2-3 weeks or earlier as needed. Sponge, lap, needle, and instrument counts were correct x 2. Diagnosis: Stroke: No - Discharge Data Discharge Date: 05/16/18 Discharge Disposition: Home, Self-Care 01 Condition: Good - Discharge Diagnosis/Problem(s) (1) Cystocele with rectocele SNOMED Code(s): 189446789 ICD Code: N81.10 - CYSTOCELE, UNSPECIFIED; N81.6 - RECTOCELE Status: Acute Current Visit: Yes (2) Pelvic pain SNOMED Code(s): 85639856 ICD Code: R10.2 - PELVIC AND PERINEAL PAIN Status: Acute Current Visit: Yes (3) S/P laparoscopic hysterectomy SNOMED Code(s): 867488411, 526359127 ICD Code: Z90.710 - ACQUIRED ABSENCE OF BOTH CERVIX AND UTERUS Status: Acute Current Visit: Yes (4) Stress incontinence of urine SNOMED Code(s): 72949577 ICD Code: N39.3 - STRESS INCONTINENCE (FEMALE) (MALE) Status: Acute Current Visit: Yes - Patient Summary/Data Operative Procedure(s) Performed: Laparoscopic-assisted vaginal hysterectomy, bilateral salpingectomy, anterior repair and transvaginal tape mid urethral sling Complications: None Consults: None Hospital Course: Uneventful - Patient Instructions Diet: Regular Diet as Tolerated Activity: Apply Ice, As Tolerated, No Lifting Over 20 Pounds Activity, Other: Nothing in the vagina for 6 weeks Driving: Do Not Drive (While taking narcotic pain medications) Showering/Bathing: May Shower, No Tub Bathing/Swimming (For 48 hours after surgery) Wound/Incision Care: Keep Operative Site/Wound Site Clean and Dry Notify Provider of: Fever, Increased Pain, Swelling and Redness, Drainage, Nausea and/or Vomiting Other/Special Instructions: Contact our office if you have heavy vaginal bleeding enough to soak a pad in less than an hour. Contact our office if you are unable to void or feel significant bladder pressure and are unable to void - Discharge Plan *PRESCRIPTION DRUG MONITORING PROGRAM REVIEWED*: Yes *COPY OF PRESCRIPTION DRUG MONITORING REPORT IN PATIENT OBEY: No (Patient with one prescription in January 2018 and no others in the system.) Prescriptions/Med Rec: Docusate Sodium [Colace] 100 mg PO BID #60 capsule Ibuprofen [Motrin] 600 mg PO Q6H PRN #60 tab PRN Reason: Pain oxyCODONE HCl/Acetaminophen [Percocet 5-325 mg Tablet] 1 - 2 each PO Q6H PRN # 30 tablet PRN Reason: Pain Home Medications: Home Meds Omeprazole 20 mg PO BID 05/14/18 [History] Docusate Sodium [Colace] 100 mg PO BID #60 capsule 05/15/18 [Rx] Ibuprofen [Motrin] 600 mg PO Q6H PRN #60 tab 05/15/18 [Rx] oxyCODONE HCl/Acetaminophen [Percocet 5-325 mg Tablet] 1 - 2 each PO Q6H PRN # 30 tablet 05/15/18 [Rx] Patient Handouts: Laparoscopically Assisted Vaginal Hysterectomy, Care After, Urethral Vaginal Sling, Care After, Anterior and Posterior Colporrhaphy Referrals: Mode Jones MD [Primary Care Provider] - (Follow-up in 2-3 weeks or earlier as needed for postop exam.) - Discharge Summary/Plan Comment DC Time >30 min.: No - Patient Data Vitals - Most Recent: Last Vital Signs Temp 99.1 F 05/16/18 05:32 Pulse 76 05/16/18 05:32 Resp 14 05/16/18 06:06 BP 130/73 05/16/18 05:32 Pulse Ox 94 L 05/16/18 06:06 Weight - Most Recent: 177 lb I&O - Last 24 hours: Intake & Output 05/15/18 05/16/18 05/16/18 22:59 06:59 14:59 Intake Total 100 1400 Output Total 500 1400 550 Balance -400 0 -550 Lab Results - Last 24 hrs: Laboratory Results - last 24 hr 05/16/18 Range/Units 05:20 WBC 9.72 (3.98-10.04) K/mm3 RBC 4.59 (3.98-5.22) M/mm3 Hgb 12.1 (11.2-15.7) gm/L Hct 36.1 (34.1-44.9) % MCV 78.6 L (79.4-94.8) fl MCH 26.4 (25.6-32.2) pg MCHC 33.5 (32.2-35.5) g/dl RDW Std Deviation 41.2 (36.4-46.3) fL Plt Count 189 (182-369) K/mm3 MPV 11.2 (9.4-12.3) fl Neut % (Auto) 75.5 H (34.0-71.1) % Lymph % (Auto) 14.5 L (19.3-51.7) % Phillips % (Auto) 9.8 (4.7-12.5) % Eos % (Auto) 0 L (0.7-5.8) Baso % (Auto) 0.1 (0.1-1.2) % Neut # (Auto) 7.34 H (1.56-6.13) K/mm3 Lymph # (Auto) 1.41 (1.18-3.74) K/mm3 Phillips # (Auto) 0.95 H (0.24-0.36) K/mm3 Eos # (Auto) 0.00 L (0.04-0.36) K/mm3 Baso # (Auto) 0.01 (0.01-0.08) K/mm3 Med Orders - Current: Current Medications Docusate Sodium (Colace) 100 mg PO BID [facility] Last Admin: 05/16/18 08:05 Dose: 100 mg Famotidine (Pepcid) 20 mg PO BID [facility] Last Admin: 05/16/18 08:05 Dose: 20 mg Hydromorphone HCl (Dilaudid) 0.2 mg IVPUSH Q2H PRN PRN Reason: Pain (severe 7-10) Promethazine HCl 12.5 mg/ (Sodium Chloride) 50.5 mls @ 200 mls/hr IV Q6H PRN PRN Reason: Nausea/Vomiting Last Admin: 05/15/18 18:35 Dose: 200 mls/hr Cefoxitin Sodium 1 gm/ Premix 50 mls @ 100 mls/hr IV Q6H [facility] Last Admin: 05/16/18 06:49 Dose: 100 mls/hr Magnesium Hydroxide (Milk Of Magnesia) 30 ml PO BID PRN PRN Reason: Constipation Ondansetron HCl (Zofran) 4 mg IVPUSH Q4H PRN PRN Reason: Nausea Last Admin: 05/15/18 22:57 Dose: 4 mg Oxycodone/Acetaminophen (Percocet 325-5 Mg) 1 tab PO Q6H PRN PRN Reason: Pain (moderate 4-6) Oxycodone/Acetaminophen (Percocet 325-5 Mg) 2 tab PO Q6H PRN PRN Reason: Pain (severe 7-10) Discontinued Medications Acetaminophen (Tylenol) 650 mg PO ONETIME ONE Stop: 05/16/18 00:32 Last Admin: 05/16/18 00:54 Dose: 650 mg Bupivacaine HCl (Marcaine 0.5%) Confirm Administered Dose 30 ml .ROUTE .STK-MED ONE Stop: 05/15/18 08:21 Last Admin: 05/15/18 09:25 Dose: 10 ml Cefazolin Sodium (Ancef) Confirm Administered Dose 2 gm .ROUTE .STK-MED ONE Stop: 05/15/18 08:41 Dexamethasone (Dexamethasone) Confirm Administered Dose 20 mg .ROUTE .STK-MED ONE Stop: 05/15/18 08:40 Famotidine (Pepcid) 20 mg IVPUSH ONETIME ONE Stop: 05/15/18 12:28 Last Admin: 05/15/18 12:35 Dose: 20 mg Fentanyl (Sublimaze) Confirm Administered Dose 250 mcg .ROUTE .STK-MED ONE Stop: 05/15/18 08:38 Fentanyl (Sublimaze) 50 mcg IVPUSH Q5M PRN PRN Reason: Pain Stop: 05/15/18 18:00 Last Admin: 05/15/18 12:53 Dose: 50 mcg Hydromorphone HCl (Dilaudid) 0.5 mg IVPUSH ONETIME PRN PRN Reason: Pain (severe 7-10) Stop: 05/15/18 18:00 Last Admin: 05/15/18 13:17 Dose: 0.5 mg Hydromorphone HCl (Dilaudid) Confirm Administered Dose 0.5 mg .ROUTE .STK-MED ONE Stop: 05/15/18 09:40 Hydromorphone HCl (Dilaudid) Confirm Administered Dose 0.5 mg .ROUTE .STK-MED ONE Stop: 05/15/18 10:07 Lactated Ringer's (Ringers, Lactated) 1,000 mls @ 125 mls/hr IV ASDIRECTED [facility] Stop: 05/15/18 23:00 Last Admin: 05/15/18 08:25 Dose: 125 mls/hr Lidocaine HCl (Xylocaine-Mpf 1%) Confirm Administered Dose 4 mls @ as directed .ROUTE .STK-MED ONE Stop: 05/15/18 08:38 Lactated Ringer's (Ringers, Lactated) Confirm Administered Dose 1,000 mls @ as directed .ROUTE .STK-MED ONE Stop: 05/15/18 09:16 Lactated Ringer's (Ringers, Lactated) Confirm Administered Dose 1,000 mls @ as directed .ROUTE .STK-MED ONE Stop: 05/15/18 10:41 Ibuprofen (Motrin) 600 mg PO ONETIME ONE Stop: 05/16/18 10:36 Last Admin: 05/16/18 10:42 Dose: 600 mg Ketamine HCl (Ketalar) Confirm Administered Dose 500 mg .ROUTE .STK-MED ONE Stop: 05/15/18 10:08 Ketorolac Tromethamine (Toradol) Confirm Administered Dose 30 mg .ROUTE .STK- MED ONE Stop: 05/15/18 11:07 Ketorolac Tromethamine (Toradol) 30 mg IVPUSH Q6H [facility] Stop: 05/16/18 02:23 Last Admin: 05/15/18 15:57 Dose: Not Given Ketorolac Tromethamine (Toradol) 30 mg IVPUSH Q6H [facility] Stop: 05/16/18 05:01 Last Admin: 05/16/18 05:24 Dose: 30 mg Lidocaine/Epinephrine (Xylocaine 1% With Epinephrine 1:100,000) Confirm Administered Dose 20 ml .ROUTE .STK-MED ONE Stop: 05/15/18 08:21 Last Admin: 05/15/18 09:51 Dose: 10 ml Lidocaine/Sodium Bicarbonate (Buffered Lidocaine 1% In Ns 8.4%) 0.25 ml IDERM ONETIME PRN PRN Reason: Prior to IV Start Stop: 05/15/18 18:00 Last Admin: 05/15/18 08:24 Dose: 0.25 ml Meperidine HCl (Meperidine) 12.5 mg IVPUSH ONETIME PRN PRN Reason: shivering Stop: 05/15/18 18:00 Midazolam HCl (Versed 1 Mg/Ml) Confirm Administered Dose 2 mg .ROUTE .STK-MED ONE Stop: 05/15/18 08:38 Ondansetron HCl (Zofran) Confirm Administered Dose 4 mg .ROUTE .STK-MED ONE Stop: 05/15/18 08:38 Ondansetron HCl (Zofran) 4 mg IVPUSH ONETIME PRN PRN Reason: Nausea/Vomiting Stop: 05/15/18 18:00 Last Admin: 05/15/18 12:19 Dose: 4 mg Ondansetron HCl (Zofran) 4 mg IVPUSH Q6H PRN PRN Reason: Nausea/Vomiting Phenylephrine HCl (Phenylephrine In Ns 100 Mcg/Ml) Confirm Administered Dose 1 mg .ROUTE .STK-MED ONE Stop: 05/15/18 09:15 Propofol (Diprivan 20 Ml) Confirm Administered Dose 200 mg .ROUTE .STK-MED ONE Stop: 05/15/18 08:38 Rocuronium [place] (Zemuron) Confirm Administered Dose 50 mg .ROUTE .STK-MED ONE Stop: 05/15/18 08:38 Sodium Chloride (Saline Flush) 10 ml FLUSH ASDIRECTED PRN PRN Reason: Keep Vein Open Stop: 05/15/18 18:00 Sodium Chloride (Normal Saline) Confirm Administered Dose 50 ml .ROUTE .STK-MED ONE Stop: 05/15/18 08:21 Last Admin: 05/15/18 09:51 Dose: 28 ml
== END 2018-05-16 11:53 | disposition home or self-care (01) | DRG 743 ==
LOC: JD.SDS 07:50 → JD.OB 13:39
PROVIDERS: ADMIT Obstetrics & Gynecology; ATTEND Obstetrics & Gynecology
PROC: 0UT9FZZ Resection of Uterus, Via Natural or Artificial Opening With Percutaneous Endoscopic Assistance (ICD-10-PCS; principal; 2018-05-15)
PROC: 0UT7FZZ Resection of Bilateral Fallopian Tubes, Via Natural or Artificial Opening With Percutaneous Endoscopic Assistance (ICD-10-PCS; principal; 2018-05-15)
PROC: 0JQC3ZZ Repair Pelvic Region Subcutaneous Tissue and Fascia, Percutaneous Approach (ICD-10-PCS; principal; 2018-05-15)
PROC: 0TSD4ZZ Reposition Urethra, Percutaneous Endoscopic Approach (ICD-10-PCS; principal; 2018-05-15)
DX: N81.4 Uterovaginal prolapse, unspecified (principal); N39.46 Mixed incontinence; R10.2 Pelvic and perineal pain; N94.6 Dysmenorrhea, unspecified; K21.9 Gastro-esophageal reflux disease without esophagitis; G47.00 Insomnia, unspecified; E66.9 Obesity, unspecified; Z88.6 Allergy status to analgesic agent; Z91.048 Other nonmedicinal substance allergy status; Z79.899 Other long term (current) drug therapy; Z68.32 Body mass index [BMI] 32.0-32.9, adult; G89.29 Other chronic pain; F32.9 Major depressive disorder, single episode, unspecified; Z90.49 Acquired absence of other specified parts of digestive tract
CPT/HCPCS: 36415; 81001; 81025; 85025; 94660; A9270-GY; J0690; J0694; J1100; J1170; J1885; J2001; J2250; J2370; J2405; J2550; J2704; J3010; J3490; J7050; J7120

== ENCOUNTER 2018-11-17 19:11 | Emergency (ER) | payer MEDICAID ==
[2018-11-17 19:51] VITALS: BP 158/103
[2018-11-17] MEDS ORDERED: Acetaminophen/HYDROcodone 325-5 MG Tab PO ONE (21:17)
--- NOTE | 2018-11-17 22:20 | EDM.PDOC ---
ED HPI GENERAL MEDICAL PROBLEM - General Chief Complaint: Chest Pain Stated Complaint: CHEST PAIN Time Seen by Provider: 11/17/18 19:53 Source of Information: Reports: Patient, RN Notes Reviewed - History of Present Illness INITIAL COMMENTS - FREE TEXT/NARRATIVE: 53-year-old female developed some left chest discomfort last evening that has continued quite steady today. She states she does have history of hiatal hernia , does get nauseated and vomit on occasion. She had some vomiting yesterday and then started having the chest discomfort after that. She is not short of breath. It does not hurt to breathe. No major abdominal discomfort at this time. No history of hypertension, heart disease or diabetes. Left Chest Pain Score (Numeric/FACES): 8 - Related Data Allergies Allergy/AdvReac Type Severity Reaction Status Date / Time codeine Allergy Chest Verified 11/17/18 19:51 Tightness Home Meds: Home Meds Omeprazole 20 mg PO BID 05/14/18 [History] Ibuprofen [Motrin] 600 mg PO Q6H PRN #60 tab 05/15/18 [Rx] Sucralfate [Carafate] 10 ml PO BID PRN 11/17/18 [History] Past Medical History HEENT History: Reports: Allergic Rhinitis, Cataract, Other (See Below) Other HEENT History: ceruminosis, R ear otitis externa, acute conjuctivitis, dental abcess, wears glasses Cardiovascular History: Reports: None Respiratory History: Reports: Other (See Below) Other Respiratory History: pneumonia Gastrointestinal History: Reports: GERD, Hiatal Hernia Other Gastrointestinal History: nausea and vomiting Genitourinary History: Reports: Pyelonephritis, Other (See Below) Other Genitourinary History: L flank pain MEDICAL RADIATION THERAPIST History: Reports: Other (See Below) Other MEDICAL RADIATION THERAPIST History: atrophic vaginitis, fibroid, pelvic cramping Musculoskeletal History: Reports: None Neurological History: Reports: Headaches, Chronic Psychiatric History: Reports: Depression Endocrine/Metabolic History: Reports: Obesity/BMI 30+, Vitamin D Deficiency Hematologic History: Reports: None Immunologic History: Reports: None Oncologic (Cancer) History: Reports: None Dermatologic History: Reports: None - Past Surgical History Head Surgeries/Procedures: Reports: None HEENT Surgical History: Reports: Cataract Surgery Cardiovascular Surgical History: Reports: None Respiratory Surgical History: Reports: None GI Surgical History: Reports: Appendectomy, Cholecystectomy, Hernia Repair/Other Other GI Surgeries/Procedures: suargery esophagus Endocrine Surgical History: Reports: None Neurological Surgical History: Reports: None Musculoskeletal Surgical History: Reports: None Oncologic Surgical History: Reports: None Dermatological Surgical History: Reports: None Social & Family History - Family History Family Medical History: Noncontributory - Tobacco Use Smoking Status *Q: Never Smoker - Caffeine Use Caffeine Use: Reports: Coffee, Soda - Recreational Drug Use Recreational Drug Use: No - Living Situation & Occupation Living situation: Reports: with Family ED ROS GENERAL - Review of Systems Review Of Systems: See Below Constitutional: Denies: Fever, Chills, Diaphoresis HEENT: Denies: Throat Pain Respiratory: Denies: Shortness of Breath, Pleuritic Chest Pain, Cough Cardiovascular: Reports: Chest Pain GI/Abdominal: Reports: Nausea, Vomiting. Denies: Abdominal Pain, Diarrhea Musculoskeletal: Denies: Shoulder Pain, Arm Pain, Back Pain Skin: Reports: No Symptoms Neurological: Denies: Numbness, Tingling ED EXAM, GENERAL - Physical Exam Exam: See Below General Appearance: Alert, Mild Distress Throat/Mouth: Normal Inspection, Normal Oropharynx Head: Atraumatic Respiratory/Chest: No Respiratory Distress, Lungs Clear, Normal Breath Sounds Cardiovascular: Regular Rate, Rhythm, Other (She does have a couple of areas of tenderness left upper chest) GI/Abdominal: Soft, Non-Tender Back Exam: No: CVA Tenderness (L), CVA Tenderness (R) Extremities: Normal Inspection Neurological: Alert, Oriented, No Motor/Sensory Deficits Psychiatric: Other Skin Exam: Warm, Normal Color EKG INTERPRETATION EKG Date: 11/17/18 Rhythm: NSR Bozman: Normal P-Wave: Present QRS: Normal ST-T: Normal QT: Normal Course - Vital Signs Text/Narrative:: Did come back normal. He was starting to have increased discomfort at the time of results so at that time did order d-dimer and a repeat over 2 hour troponin. Second troponin did also come back normal. Chest x-ray normal, d-dimer 0.55 Last Recorded V/S: Last Vital Signs Temp 97.9 F 11/17/18 19:45 Pulse 70 11/17/18 19:45 Resp 20 11/17/18 19:45 BP 158/103 H 11/17/18 19:45 Pulse Ox 95 11/17/18 19:45 - Orders/Labs/Meds Orders: Active Orders 24 hr Category Date Time Status EKG 12 Lead [EKG Documentation Completion] [RC] STAT Care 11/17/18 20:24 Active Chest 1V Frontal [CR] Stat Exams 11/17/18 20:24 Taken Labs: Laboratory Tests 11/17/18 11/17/18 11/17/18 Range/Units 20:40 20:46 21:40 D-Dimer, Quantitative 0.55 H (0.19-0.50) mg/L Troponin I < 0.017 < 0.017 (0.00-0.056) ng/mL Meds: Medications Discontinued Medications Generic Name Dose Route Start Last Admin Trade Name [place] PRN Reason Stop Dose Admin Hydrocodone Bitart/Acetaminophen 1 tab 11/17/18 21:17 11/17/18 21:29 [place] 325-5 Mg PO 11/17/18 21:18 1 tab ONETIME ONE Administration - Re-Assessments/Exams Free Text/Narrative Re-Assessment/Exam: 11/18/18 04:51 Initial troponin came back normal. Liver at time of results her discomfort was increased, continuing left upper chest area. Therefore second troponin was ordered which also did come back normal. D-dimer was also ordered which came back at 0.55, very acceptable for her age of 53. Chest x-ray was normal. He did have a couple of areas of tenderness left chest. She likely suffered some muscle strain associated with her vomiting. EKG did not show any acute changes. Monitor his been sinus rhythm, no ectopy. Discharge instructions as documented. Departure - Departure Time of Disposition: 22:19 Disposition: Home, Self-Care 01 Condition: Fair Clinical Impression: Chest wall pain, Atypical chest pain Instructions: Chest Wall Pain, [id number] Referrals: Daren Parra MD [Primary Care Provider] - Forms: ED Department Discharge Additional Instructions: Rest, no heavy lifting until pain resolving, you can alternate ice and heat to areas of soreness. Advil or ibuprofen 600 mg 2-3 times daily for pain, be sure to take that with food. Tylenol or acetaminophen in between doses for extra pain relief as needed but not more than 3 times daily. Do not work tomorrow. Increase activity slowly as tolerated, look clinic if not much better within 3- 4 days as expected. Return to ED as needed if symptoms worsening in any way. - My Orders Last 24 Hours: My Active Orders 11/17/18 20:24 EKG 12 Lead [EKG Documentation Completion] [RC] STAT Chest 1V Frontal [CR] Stat - Assessment/Plan Last 24 Hours: My Active Orders 11/17/18 20:24 EKG 12 Lead [EKG Documentation Completion] [RC] STAT Chest 1V Frontal [CR] Stat
--- NOTE | 2018-11-18 07:02 | CR ---
Chest: Portable view of the chest was obtained. Comparison: Prior chest x-ray of 02/02/18. Heart is mildly enlarged. Small hiatal hernia is seen. Small nodule is noted within the right mid lung which correlates to a granuloma and is stable. Lungs otherwise are clear and show no acute parenchymal change. Bony structures are grossly intact. Impression: 1. Stable cardiomegaly and other incidental findings. 2. Nothing acute is appreciated on portable chest x-ray. Diagnostic code #2
== END 2018-11-17 22:29 | disposition home or self-care (01) ==
LOC: JD.ED 19:11
DX: R07.89 Other chest pain (principal); Z88.5 Allergy status to narcotic agent
CPT/HCPCS: 36415; 71045; 84484; 85379; 93005; 99285; A9270; 93010; 99284

== ENCOUNTER 2019-01-21 22:42 | Emergency (ER) | payer MEDICAID ==
--- NOTE | 2019-01-21 23:47 | EDM.PDOC ---
ED HPI GENERAL MEDICAL PROBLEM - General Chief Complaint: Upper Extremity Injury/Pain Stated Complaint: LUMP ON RIGHT ARM Time Seen by Provider: 01/21/19 23:07 Source of Information: Reports: Patient History Limitations: Reports: No Limitations - History of Present Illness INITIAL COMMENTS - FREE TEXT/NARRATIVE: The patient presents with right arm swelling and pain. One week ago she had a cardiac cath and they went through the right wrist. She has some ecchymosis at the wrist and swelling with some swelling in near the elbow. She has some achy pain up her arm into her axilla. She has no history of DVTs or PEs. She is not on any blood thinners. She has no chest pain or shortness of breath. This started about 2 days ago. Onset: Gradual Duration: Day(s): Location: Reports: Upper Extremity, Right Quality: Reports: Ache Severity: Mild Improves with: Reports: None Worsens with: Reports: None Associated Symptoms: Reports: No Other Symptoms Treatments VP [employer]ETING: Reports: Other (see below) Other Treatments [employer]ET[employer]: none Right Arm Pain Score (Numeric/FACES): 4 - Related Data Allergies Allergy/AdvReac Type Severity Reaction Status Date / Time codeine Allergy Chest Verified 11/17/18 19:51 Tightness Home Meds: Home Meds Sucralfate [Carafate] 10 ml PO BID PRN 11/17/18 [History] Esomeprazole Magnesium [Nexium] 20 mg PO DAILY 01/21/19 [History] oxyCODONE HCl/Acetaminophen [Oxycodone-Acetaminophen 5-325] 1 tab PO ASDIRECTED 01/21/19 [History] Past Medical History HEENT History: Reports: Allergic Rhinitis, Cataract, Other (See Below) Other HEENT History: ceruminosis, R ear otitis externa, acute conjuctivitis, dental abcess, wears glasses Cardiovascular History: Reports: None, Other (See Below) Other Cardiovascular History: angiogram Respiratory History: Reports: Other (See Below) Other Respiratory History: pneumonia Gastrointestinal History: Reports: GERD, Hiatal Hernia Other Gastrointestinal History: nausea and vomiting Genitourinary History: Reports: Pyelonephritis, Other (See Below) Other Genitourinary History: L flank pain 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 History: atrophic vaginitis, fibroid, pelvic cramping Musculoskeletal History: Reports: None Neurological History: Reports: Headaches, Chronic Psychiatric History: Reports: Depression Endocrine/Metabolic History: Reports: Obesity/BMI 30+, Vitamin D Deficiency Hematologic History: Reports: None Immunologic History: Reports: None Oncologic (Cancer) History: Reports: None Dermatologic History: Reports: None - Past Surgical History Head Surgeries/Procedures: Reports: None HEENT Surgical History: Reports: Cataract Surgery Cardiovascular Surgical History: Reports: None Respiratory Surgical History: Reports: None GI Surgical History: Reports: Appendectomy, Cholecystectomy, Hernia Repair/Other Other GI Surgeries/Procedures: suargery esophagus Endocrine Surgical History: Reports: None Neurological Surgical History: Reports: None Musculoskeletal Surgical History: Reports: None Oncologic Surgical History: Reports: None Dermatological Surgical History: Reports: None Social & Family History - Family History Family Medical History: Noncontributory - Tobacco Use Smoking Status *Q: Never Smoker - Caffeine Use Caffeine Use: Reports: Coffee, Soda, Tea - Recreational Drug Use Recreational Drug Use: No - Living Situation & Occupation Living situation: Reports: with Family Review of Systems - Review of Systems Review Of Systems: See Below Constitutional: Reports: No Symptoms Eyes: Reports: No Symptoms Ears: Reports: No Symptoms Nose: Reports: No Symptoms Mouth/Throat: Reports: No Symptoms Respiratory: Reports: No Symptoms Cardiovascular: Reports: No Symptoms GI/Abdominal: Reports: No Symptoms Genitourinary: Reports: No Symptoms Musculoskeletal: Reports: Other (Pain, swelling and ecchymosis right arm) ED EXAM, GENERAL - Physical Exam Exam: See Below Exam Limited By: No Limitations General Appearance: Alert, No Apparent Distress Ears: Normal External Exam Nose: Normal Inspection Head: Atraumatic, Normocephalic Neck: Normal Inspection Respiratory/Chest: No Respiratory Distress Extremities: Other (Edema and ecchymosis at the right inner wrist. Edema to the medial AC area on the right arm. Good sensation and pulses distally.) Course - Vital Signs Last Recorded V/S: Last Vital Signs Temp 98.2 F 01/22/19 02:04 Pulse 74 01/22/19 02:04 Resp 16 01/22/19 02:04 BP 132/86 01/22/19 02:04 Pulse Ox 95 01/22/19 02:04 - Orders/Labs/Meds Orders: Active Orders 24 hr Category Date Time Status Cardiac Monitoring [RC] . DIRECTED Care 01/22/19 01:29 Active Cardiac Monitoring [RC] . DIRECTED Care 01/22/19 01:30 Active EKG Documentation Completion [RC] STAT Care 01/22/19 01:29 Active VL Duplex Upr Ext Veins Ltd Rt [US] Stat Exams 01/21/19 23:26 Taken Labs: Laboratory Tests 01/22/19 01/22/19 Range/Units 01:52 01:52 WBC 6.03 (3.98-10.04) K/mm3 RBC 5.04 (3.98-5.22) M/mm3 Hgb 12.7 (11.2-15.7) gm/L Hct 39.1 (34.1-44.9) % MCV 77.6 L (79.4-94.8) fl MCH 25.2 L (25.6-32.2) pg MCHC 32.5 (32.2-35.5) g/dl RDW Std Deviation 40.5 (36.4-46.3) fL Plt Count 221 (182-369) K/mm3 MPV 11.2 (9.4-12.3) fl Neut % (Auto) 55.3 (34.0-71.1) % Lymph % (Auto) 32.7 (19.3-51.7) % [place] % (Auto) 8.6 (4.7-12.5) % Eos % (Auto) 2.8 (0.7-5.8) Baso % (Auto) 0.3 (0.1-1.2) % Neut # (Auto) 3.33 (1.56-6.13) K/mm3 Lymph # (Auto) 1.97 (1.18-3.74) K/mm3 [place] # (Auto) 0.52 H (0.24-0.36) K/mm3 Eos # (Auto) 0.17 (0.04-0.36) K/mm3 Baso # (Auto) 0.02 (0.01-0.08) K/mm3 Sodium 142 (136-145) mEq/L Potassium 3.7 (3.5-5.1) mEq/L Chloride 108 H (98-107) mEq/L Carbon Dioxide 26 (21-32) mEq/L Anion Gap 11.7 (5-15) BUN 17 (7-18) mg/dL Creatinine 0.7 (0.55-1.02) mg/dL Est Cr Clr Drug Dosing 70.98 mL/min Estimated GFR (MDRD) > 60 (>60) mL/min BUN/Creatinine Ratio 24.3 H (14-18) Glucose 115 H (74-106) mg/dL Calcium 9.4 (8.5-10.1) mg/dL Total Bilirubin 0.2 (0.2-1.0) mg/dL AST 11 L (15-37) U/L ALT 41 (14-59) U/L Alkaline Phosphatase 116 (46-116) U/L Troponin I < 0.017 (0.00-0.056) ng/mL Total Protein 7.2 (6.4-8.2) g/dl Albumin 3.4 (3.4-5.0) g/dl Globulin 3.8 gm/dL Albumin/Globulin Ratio 0.9 L (1-2) Meds: Medications Discontinued Medications Generic Name Dose Route Start Last Admin Trade Name Freq PRN Reason Stop Dose Admin Al Hydroxide/Mg Hydroxide 30 0 ml 01/22/19 01:38 01/22/19 01:42 ml/ Lidocaine HCl 15 ml PO 01/22/19 01:39 45 ml ONETIME ONE Administration Ondansetron HCl 4 mg 01/22/19 01:30 01/22/19 01:36 Zofran Odt PO 01/22/19 01:31 4 mg ONETIME ONE Administration - Re-Assessments/Exams Free Text/Narrative Re-Assessment/Exam: 01/21/19 23:46 I have ordered an US of her right arm. 01/22/19 02:40 Her US shows no acute findings. No evidence of deep vein thrombosis. The patient had some indigestion and vomited. I gave her some zofran and got an EKG that showed no acute changes. Her CBC and CMP look good and her troponin was negative. Departure - Departure Time of Disposition: 02:45 Disposition: Home, Self-Care 01 Condition: Good Clinical Impression: Hiatal hernia with GERD and esophagitis, Swelling of right upper extremity - Discharge Information *PRESCRIPTION DRUG MONITORING PROGRAM REVIEWED*: No *COPY OF PRESCRIPTION DRUG MONITORING REPORT IN PATIENT OBEY: No Referrals: Daren Parra MD [Primary Care Provider] - Forms: ED Department Discharge Additional Instructions: Put some warm compresses on your wrist a couple times per day. Take your medication as prescribed. Please return if you are worse. - My Orders Last 24 Hours: My Active Orders 01/21/19 23:26 VL Duplex Upr Ext Veins Ltd Rt [US] Stat 01/22/19 01:29 Cardiac Monitoring [RC] . DIRECTED EKG Documentation Completion [RC] STAT 01/22/19 01:30 Cardiac Monitoring [RC] . DIRECTED - Assessment/Plan Last 24 Hours: My Active Orders 01/21/19 23:26 VL Duplex Upr Ext Veins Ltd Rt [US] Stat 01/22/19 01:29 Cardiac Monitoring [RC] . DIRECTED EKG Documentation Completion [RC] STAT 01/22/19 01:30 Cardiac Monitoring [RC] . DIRECTED
[2019-01-22] MEDS ORDERED: Ondansetron 4 MG Tab.DIS PO ONE (01:30)
[2019-01-22] MEDS ORDERED: Alum Hydrox/Mag Hydrox/Simeth 30 ML, Lidocaine 2% 15 ML PO ONE ×2 (01:38)
[2019-01-22 02:05] VITALS: BP 132/86
--- NOTE | 2019-01-22 06:27 | US ---
Right upper extremity venous ultrasound: Duplex and color flow imaging was obtained of the right internal jugular, subclavian, axillary, brachial, basilic, cephalic, radial and ulnar veins. Findings: Mild subcutaneous edema is seen in the area of bruising Normal phasic flow, augmentation and compression are seen. Left internal jugular is also patent. Impression: 1. Slight edema in area of bruising. 2. No evidence of venous thrombosis within the right upper extremity or left internal jugular vein. Diagnostic code #2 I agree with preliminary report from [facility], finalized on 01/22/19, 3:19 AM Central Time
== END 2019-01-22 02:50 | disposition home or self-care (01) ==
LOC: JD.ED 22:42
DX: K44.9 Diaphragmatic hernia without obstruction or gangrene (principal); K21.0 Gastro-esophageal reflux disease with esophagitis; M79.89 Other specified soft tissue disorders; Z79.899 Other long term (current) drug therapy
CPT/HCPCS: 36415; 80053; 84484; 85025; 93005; 93971; 99284; A9270; 99283

== ENCOUNTER 2019-05-10 09:50 | Emergency (ER) | payer MEDICAID ==
[2019-05-10 09:59] VITALS: BP 124/87
[2019-05-10] MEDS ORDERED: Sodium Chloride 0.9% 10 ML Syringe FLUSH PRN (10:31)
--- NOTE | 2019-05-10 10:35 | EDM.PDOC ---
ED HPI GENERAL MEDICAL PROBLEM - General Chief Complaint: Chest Pain Stated Complaint: CHEST PAIN Time Seen by Provider: 05/10/19 10:22 Source of Information: Reports: Patient, RN Notes Reviewed - History of Present Illness INITIAL COMMENTS - FREE TEXT/NARRATIVE: 54-year-old lady had onset of severe anterior chest discomfort about an hour ago. There was mid chest pain with radiation up to the neck but not into the shoulder or arm. This lasted about 10 or 15 minutes and then did go away. She has had this multiple times in the past year or 2. She has had an angiogram and that time her arteries were clear, no blockage. She has been told that her symptoms are due to GERD. She has no history for hypertension diabetes or other known medical problems. She did not gets nauseated but did get somewhat weak and dizzy. She does feel much better at this time. Chest Pain Score (Numeric/FACES): 5 - Related Data Allergies Allergy/AdvReac Type Severity Reaction Status Date / Time codeine Allergy Chest Verified 05/10/19 09:58 Tightness Home Meds: Home Meds Sucralfate [Carafate] 10 ml PO BID PRN 11/17/18 [History] Esomeprazole Magnesium [Nexium] 20 mg PO DAILY 01/21/19 [History] oxyCODONE HCl/Acetaminophen [Oxycodone-Acetaminophen 5-325] 1 tab PO ASDIRECTED 01/21/19 [History] Nitroglycerin [Nitrostat] 1 tab PO ASDIRECTED PRN 05/10/19 [History] Past Medical History HEENT History: Reports: Allergic Rhinitis, Cataract, Other (See Below) Other HEENT History: ceruminosis, R ear otitis externa, acute conjuctivitis, dental abcess, wears glasses Cardiovascular History: Reports: None, Other (See Below) Other Cardiovascular History: angiogram Respiratory History: Reports: Other (See Below) Other Respiratory History: pneumonia Gastrointestinal History: Reports: GERD, Hiatal Hernia Other Gastrointestinal History: nausea and vomiting Genitourinary History: Reports: Pyelonephritis Other Genitourinary History: L flank pain ; hiatial hernia 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: atrophic vaginitis, fibroid, pelvic cramping Musculoskeletal History: Reports: None Neurological History: Reports: Headaches, Chronic Psychiatric History: Reports: Depression Endocrine/Metabolic History: Reports: Obesity/BMI 30+, Vitamin D Deficiency Hematologic History: Reports: None Immunologic History: Reports: None Oncologic (Cancer) History: Reports: None Dermatologic History: Reports: None - Past Surgical History Head Surgeries/Procedures: Reports: None HEENT Surgical History: Reports: Cataract Surgery Cardiovascular Surgical History: Reports: None Respiratory Surgical History: Reports: None GI Surgical History: Reports: Appendectomy, Cholecystectomy, Hernia Repair/Other Other GI Surgeries/Procedures: suargery esophagus Female Surgical History: Reports: Other (See Below) Other Female Surgeries/Procedures: surgery on hiatial hernia in [place] Endocrine Surgical History: Reports: None Neurological Surgical History: Reports: None Musculoskeletal Surgical History: Reports: None Oncologic Surgical History: Reports: None Dermatological Surgical History: Reports: None Social & Family History - Family History Family Medical History: Noncontributory - Tobacco Use Smoking Status *Q: Never Smoker - Caffeine Use Caffeine Use: Reports: Coffee - Recreational Drug Use Recreational Drug Use: No - Living Situation & Occupation Living situation: Reports: with Family ED ROS GENERAL - Review of Systems Review Of Systems: See Below Constitutional: Denies: Fever, Chills, Diaphoresis HEENT: Reports: No Symptoms Respiratory: Denies: Shortness of Breath, Pleuritic Chest Pain Cardiovascular: Reports: Chest Pain (gone). Denies: Palpitations GI/Abdominal: Denies: Abdominal Pain, Nausea, Vomiting Musculoskeletal: Denies: Arm Pain, Back Pain Skin: Reports: No Symptoms Neurological: Reports: No Symptoms ED EXAM, GENERAL - Physical Exam Exam: See Below General Appearance: Alert, No Apparent Distress Throat/Mouth: Normal Inspection, Normal Oropharynx Head: Atraumatic Neck: Supple Respiratory/Chest: No Respiratory Distress, Lungs Clear, Normal Breath Sounds Cardiovascular: Regular Rate, Rhythm GI/Abdominal: Soft, Non-Tender. No: Guarding Extremities: Normal Inspection, Normal Range of Motion Skin Exam: Warm, Dry, Normal Color EKG INTERPRETATION EKG Date: 05/10/19 Rhythm: NSR [place]: Normal P-Wave: Present QRS: Normal ST-T: Other (There are T-wave inversions in lead III, no ST elevation or depression) Course - Vital Signs Last Recorded V/S: Last Vital Signs Temp 97.2 F 05/10/19 09:52 Pulse 74 05/10/19 09:52 Resp 22 H 05/10/19 09:52 BP 124/87 05/10/19 09:52 Pulse Ox 97 05/10/19 09:52 - Orders/Labs/Meds Labs: Laboratory Tests 05/10/19 05/10/19 Range/Units 09:56 09:56 WBC 5.34 (3.98-10.04) K/mm3 RBC 5.28 H (3.98-5.22) M/mm3 Hgb 12.9 (11.2-15.7) gm/L Hct 39.7 (34.1-44.9) % MCV 75.2 L (79.4-94.8) fl MCH 24.4 L (25.6-32.2) pg MCHC 32.5 (32.2-35.5) g/dl RDW Std Deviation 41.8 (36.4-46.3) fL Plt Count 223 (182-369) K/mm3 MPV 11.0 (9.4-12.3) fl Neut % (Auto) 58.1 (34.0-71.1) % Lymph % (Auto) 30.9 (19.3-51.7) % [place] % (Auto) 7.9 (4.7-12.5) % Eos % (Auto) 2.1 (0.7-5.8) Baso % (Auto) 0.6 (0.1-1.2) % Neut # (Auto) 3.11 (1.56-6.13) K/mm3 Lymph # (Auto) 1.65 (1.18-3.74) K/mm3 [place] # (Auto) 0.42 H (0.24-0.36) K/mm3 Eos # (Auto) 0.11 (0.04-0.36) K/mm3 Baso # (Auto) 0.03 (0.01-0.08) K/mm3 Sodium 140 (136-145) mEq/L Potassium 4.0 (3.5-5.1) mEq/L Chloride 106 (98-107) mEq/L Carbon Dioxide 27 (21-32) mEq/L Anion Gap 11.0 (5-15) BUN 17 (7-18) mg/dL Creatinine 0.7 (0.55-1.02) mg/dL Est Cr Clr Drug Dosing 70.98 mL/min Estimated GFR (MDRD) > 60 (>60) mL/min BUN/Creatinine Ratio 24.3 H (14-18) Glucose 104 (74-106) mg/dL Calcium 9.1 (8.5-10.1) mg/dL Total Bilirubin 0.3 (0.2-1.0) mg/dL AST 14 L (15-37) U/L ALT 28 (14-59) U/L Alkaline Phosphatase 107 (46-116) U/L Troponin I < 0.017 (0.00-0.056) ng/mL Total Protein 7.7 (6.4-8.2) g/dl Albumin 3.7 (3.4-5.0) g/dl Globulin 4.0 gm/dL Albumin/Globulin Ratio 0.9 L (1-2) Meds: Medications Discontinued Medications Generic Name Dose Route Start Last Admin Trade Name Freq PRN Reason Stop Dose Admin Sodium Chloride 10 ml 05/10/19 10:31 05/10/19 10:33 Saline Flush FLUSH 10 ml ASDIRECTED PRN Administration Keep Vein Open - Re-Assessments/Exams Free Text/Narrative Re-Assessment/Exam: 05/16/19 13:51 EKG, trop, other labs did come back normal, discharge instr. as documented. Departure - Departure Time of Disposition: 11:55 Disposition: Home, Self-Care 01 Condition: Fair Clinical Impression: Atypical chest pain Instructions: Nonspecific Chest Pain, [id number] Referrals: Daren Parra MD [Primary Care Provider] - Forms: ED Department Discharge Additional Instructions: Rest, continue current medications, follow-up clinic if having further episodes of chest discomfort. Return to ED as needed if symptoms worsening in any way.
== END 2019-05-10 12:03 | disposition home or self-care (01) ==
LOC: JD.ED 09:50
DX: R07.89 Other chest pain (principal); K21.9 Gastro-esophageal reflux disease without esophagitis; E66.9 Obesity, unspecified; Z68.34 Body mass index [BMI] 34.0-34.9, adult; Z90.49 Acquired absence of other specified parts of digestive tract; Z88.5 Allergy status to narcotic agent
CPT/HCPCS: 36415; 80053; 84484; 85025; 93005; 99285-25

== ENCOUNTER 2019-07-03 07:44 | Emergency (ER) | payer MEDICAID ==
[2019-07-03 07:59] VITALS: BP 128/80; PULSE 85
[2019-07-03] MEDS ORDERED: Ondansetron 4 MG/2 ML SDV IVPUSH ONE (08:17)
[2019-07-03] MEDS ORDERED: Sodium Chloride 0.9% 10 ML Syringe FLUSH PRN (08:17)
[2019-07-03] MEDS ORDERED: Sodium Chloride 0.9% 1,000 ML IV STA (08:17)
--- NOTE | 2019-07-03 08:23 | EDM.PDOC ---
ED HPI GENERAL MEDICAL PROBLEM - General Chief Complaint: Gastrointestinal Problem Stated Complaint: VOMITING Time Seen by Provider: 07/03/19 08:03 Source of Information: Reports: Patient History Limitations: Reports: No Limitations - History of Present Illness INITIAL COMMENTS - FREE TEXT/NARRATIVE: The patient presents with nausea and vomiting. She says yesterday she bit down hard on a piece of chicken and felt pain to the left upper molar. She was worried she may get an infection and toothache so she took a penicillin, percocet and tramadol. She woke up this morning with nausea and vomiting. She has a headache. She has no abdominal pain, fever, chills, cough, chest pain or shortness of breath. She has no pain in the tooth and no swelling. Onset: Gradual Duration: Hour(s): Location: Reports: Head Quality: Reports: Ache Severity: Mild Improves with: Reports: None Worsens with: Reports: None Associated Symptoms: Reports: Headaches, Nausea/Vomiting. Denies: Chest Pain, Cough, Fever/Chills, Shortness of Breath Headache Pain Score (Numeric/FACES): 5 - Related Data Allergies Allergy/AdvReac Type Severity Reaction Status Date / Time codeine Allergy Chest Verified 07/03/19 07:59 Tightness Home Meds: Home Meds Sucralfate [Carafate] 10 ml PO BID PRN 11/17/18 [History] Esomeprazole Magnesium [Nexium] 20 mg PO DAILY 01/21/19 [History] oxyCODONE HCl/Acetaminophen [Oxycodone-Acetaminophen 5-325] 1 tab PO ASDIRECTED 01/21/19 [History] Nitroglycerin [Nitrostat] 1 tab PO ASDIRECTED PRN 05/10/19 [History] Ondansetron [Zofran ODT] 4 mg PO Q6H PRN #20 tab.dis 07/03/19 [Rx] Past Medical History HEENT History: Reports: Allergic Rhinitis, Cataract, Other (See Below) Other HEENT History: ceruminosis, R ear otitis externa, acute conjuctivitis, dental abcess, wears glasses Cardiovascular History: Reports: None, Other (See Below) Other Cardiovascular History: angiogram Respiratory History: Reports: Other (See Below) Other Respiratory History: pneumonia Gastrointestinal History: Reports: GERD, Hiatal Hernia Other Gastrointestinal History: nausea and vomiting Genitourinary History: Reports: Pyelonephritis Other Genitourinary History: L flank pain ; hiatial hernia SKID WRAPPER History: Reports: Other (See Below) Other SKID WRAPPER History: atrophic vaginitis, fibroid, pelvic cramping Musculoskeletal History: Reports: None Neurological History: Reports: Headaches, Chronic Psychiatric History: Reports: Depression Endocrine/Metabolic History: Reports: Obesity/BMI 30+, Vitamin D Deficiency Hematologic History: Reports: None Immunologic History: Reports: None Oncologic (Cancer) History: Reports: None Dermatologic History: Reports: None - Past Surgical History Head Surgeries/Procedures: Reports: None HEENT Surgical History: Reports: Cataract Surgery Cardiovascular Surgical History: Reports: None Respiratory Surgical History: Reports: None GI Surgical History: Reports: Appendectomy, Cholecystectomy, Hernia Repair/Other Other GI Surgeries/Procedures: suargery esophagus Female Surgical History: Reports: Other (See Below) Other Female Surgeries/Procedures: surgery on hiatial hernia in [place] Endocrine Surgical History: Reports: None Neurological Surgical History: Reports: None Musculoskeletal Surgical History: Reports: None Oncologic Surgical History: Reports: None Dermatological Surgical History: Reports: None Social & Family History - Family History Family Medical History: Noncontributory - Caffeine Use Caffeine Use: Reports: Coffee - Living Situation & Occupation Living situation: Reports: with Family ED ROS GENERAL - Review of Systems Review Of Systems: See Below Constitutional: Reports: No Symptoms HEENT: Reports: No Symptoms Respiratory: Reports: No Symptoms Cardiovascular: Reports: No Symptoms Endocrine: Reports: No Symptoms GI/Abdominal: Reports: Nausea, Vomiting. Denies: Abdominal Pain, Diarrhea : Reports: No Symptoms Musculoskeletal: Reports: No Symptoms ED EXAM, GI/ABD - Physical Exam Exam: See Below Exam Limited By: No Limitations General Appearance: Alert, No Apparent Distress Ears: Normal External Exam Nose: Normal Inspection Throat/Mouth: Other (No erythema, edema or pain upon palpation) Head: Atraumatic, Normocephalic Neck: Normal Inspection Respiratory/Chest: No Respiratory Distress, Lungs Clear, Normal Breath Sounds Cardiovascular: Regular Rate, Rhythm, No Edema, No Murmur GI/Abdominal Exam: Soft, Non-Tender, No Organomegaly, No Mass Course - Vital Signs Last Recorded V/S: Last Vital Signs Temp 98.3 F 07/03/19 07:55 Pulse 85 07/03/19 07:55 Resp 18 07/03/19 07:55 BP 128/80 07/03/19 07:55 Pulse Ox 99 07/03/19 07:55 - Orders/Labs/Meds Orders: Active Orders 24 hr Category Date Time Status Peripheral IV Care [RC] . DIRECTED Care 07/03/19 08:17 Active Sodium Chloride 0.9% [Saline Flush] Med 07/03/19 08:17 Active 10 ml FLUSH ASDIRECTED PRN Peripheral IV Insertion Adult [OM.PC] Stat Oth 07/03/19 08:17 Ordered Medication Orders Sodium Chloride (Saline Flush) 10 ml FLUSH ASDIRECTED PRN PRN Reason: Keep Vein Open Last Admin: 07/03/19 08:28 Dose: 10 ml Labs: Laboratory Tests 07/03/19 07/03/19 07/03/19 Range/Units 08:00 08:00 08:20 WBC 4.94 (3.98-10.04) K/mm3 RBC 5.39 H (3.98-5.22) M/mm3 Hgb 13.0 (11.2-15.7) gm/dl Hct 41.1 (34.1-44.9) % MCV 76.3 L (79.4-94.8) fl MCH 24.1 L (25.6-32.2) pg MCHC 31.6 L (32.2-35.5) g/dl RDW Std Deviation 44.3 (36.4-46.3) fL Plt Count 204 (182-369) K/mm3 MPV 10.4 (9.4-12.3) fl Neut % (Auto) 63.2 (34.0-71.1) % Lymph % (Auto) 27.7 (19.3-51.7) % [place] % (Auto) 7.5 (4.7-12.5) % Eos % (Auto) 1.2 (0.7-5.8) Baso % (Auto) 0.4 (0.1-1.2) % Neut # (Auto) 3.12 (1.56-6.13) K/mm3 Lymph # (Auto) 1.37 (1.18-3.74) K/mm3 [place] # (Auto) 0.37 H (0.24-0.36) K/mm3 Eos # (Auto) 0.06 (0.04-0.36) K/mm3 Baso # (Auto) 0.02 (0.01-0.08) K/mm3 Sodium 141 (136-145) mEq/L Potassium 3.9 (3.5-5.1) mEq/L Chloride 105 (98-107) mEq/L Carbon Dioxide 28 (21-32) mEq/L Anion Gap 11.9 (5-15) BUN 15 (7-18) mg/dL Creatinine 0.6 (0.55-1.02) mg/dL Est Cr Clr Drug Dosing 82.80 mL/min Estimated GFR (MDRD) > 60 (>60) mL/min BUN/Creatinine Ratio 25.0 H (14-18) Glucose 102 (74-106) mg/dL Calcium 9.0 (8.5-10.1) mg/dL Total Bilirubin 0.4 (0.2-1.0) mg/dL AST 12 L (15-37) U/L ALT 28 (14-59) U/L Alkaline Phosphatase 100 (46-116) U/L Total Protein 7.1 (6.4-8.2) g/dl Albumin 3.3 L (3.4-5.0) g/dl Globulin 3.8 gm/dL Albumin/Globulin Ratio 0.9 L (1-2) Urine Color Yellow (Yellow) Urine Appearance Clear (Clear) Urine pH 7.0 (5.0-8.0) Ur Specific [place] 1.020 (1.005-1.030) Urine Protein Negative (Negative) Urine Glucose (UA) Negative (Negative) Urine Ketones Negative (Negative) Urine Occult Blood Negative (Negative) Urine Nitrite Negative (Negative) Urine Bilirubin Negative (Negative) Urine Urobilinogen 0.2 (0.2-1.0) Ur Leukocyte Esterase 1+ H (Negative) Urine RBC 0-5 (0-5) /hpf Urine WBC 0-5 (0-5) /hpf Ur Epithelial Cells 5-10 H (0-5) /hpf Urine Bacteria Rare (FEW) /hpf Urine Mucus Many H (FEW) /hpf Meds: Medications Generic Name Dose Route Start Last Admin Trade Name Freq PRN Reason Stop Dose Admin Sodium Chloride 10 ml 07/03/19 08:17 07/03/19 08:28 Saline Flush FLUSH 10 ml ASDIRECTED PRN Administration Keep Vein Open Discontinued Medications Generic Name Dose Route Start Last Admin Trade Name [place] PRN Reason Stop Dose Admin Sodium Chloride 1,000 mls @ 1,000 mls/hr 07/03/19 08:17 07/03/19 08:28 Normal Saline IV 07/03/19 09:16 1,000 mls/hr .BOLUS STA Administration Metoclopramide HCl 10 mg 07/03/19 09:24 Reglan IVPUSH 07/03/19 09:25 ONETIME ONE Ondansetron HCl 4 mg 07/03/19 08:17 07/03/19 08:28 Zofran IVPUSH 07/03/19 08:18 4 mg ONETIME ONE Administration - Re-Assessments/Exams Free Text/Narrative Re-Assessment/Exam: 07/03/19 08:22 I ordered an IV NS bolus, zofran 4mg IV, labs and a UA. 07/03/19 09:28 Her CBC and CMP look good. Her UA shows no UTI. She still is a little nauseated and has a headache. I ordered reglan 10mg IV and some tylenol. I will then discharge her home with some zofran. Departure - Departure Time of Disposition: 09:30 Disposition: Home, Self-Care 01 Condition: Good Clinical Impression: Nausea, Drug side effects - Discharge Information *PRESCRIPTION DRUG MONITORING PROGRAM REVIEWED*: No *COPY OF PRESCRIPTION DRUG MONITORING REPORT IN PATIENT OBEY: No Prescriptions: Ondansetron [Zofran ODT] 4 mg PO Q6H PRN #20 tab.dis PRN Reason: Nausea\vomiting Referrals: Daren Parra MD [Primary Care Provider] - Forms: ED Department Discharge Additional Instructions: Drink plenty of fluids. Take zofran every 6 hours as needed for nausea and vomiting. Please return if you are worse. - My Orders Last 24 Hours: My Active Orders 07/03/19 08:17 Peripheral IV Care [RC] . DIRECTED Sodium Chloride 0.9% [Saline Flush] 10 ml FLUSH ASDIRECTED PRN Peripheral IV Insertion Adult [OM.PC] Stat - Assessment/Plan Last 24 Hours: My Active Orders 07/03/19 08:17 Peripheral IV Care [RC] . DIRECTED Sodium Chloride 0.9% [Saline Flush] 10 ml FLUSH ASDIRECTED PRN Peripheral IV Insertion Adult [OM.PC] Stat
[2019-07-03] MEDS ORDERED: Metoclopramide 10 MG/2 ML SDV IVPUSH ONE (09:24)
[2019-07-03] MEDS ORDERED: Acetaminophen 325 MG Tab PO ONE (09:27)
== END 2019-07-03 09:49 | disposition home or self-care (01) ==
LOC: JD.ED 07:44
DX: T40.2X1A Poisoning by other opioids, accidental (unintentional), initial encounter (principal); T40.4X1A Poisoning by other synthetic narcotics, accidental (unintentional), initial encounter; T36.0X1A Poisoning by penicillins, accidental (unintentional), initial encounter; R11.2 Nausea with vomiting, unspecified; K21.9 Gastro-esophageal reflux disease without esophagitis; E66.9 Obesity, unspecified; H26.9 Unspecified cataract; Z88.5 Allergy status to narcotic agent; Z79.899 Other long term (current) drug therapy; Z68.34 Body mass index [BMI] 34.0-34.9, adult
CPT/HCPCS: 36415; 80053; 81001; 85025; 96361; 96374; 96375; 99283; A9270; J2405; J2765; J7040

== ENCOUNTER 2020-01-09 00:57 | Emergency (ER) | payer MEDICAID ==
[2020-01-09 01:12] VITALS: BP 132/92; PULSE 94
[2020-01-09] MEDS ORDERED: Orphenadrine 100 MG Tab.ER PO STA (01:37)
--- NOTE | 2020-01-09 01:40 | EDM.PDOC ---
ED HPI GENERAL MEDICAL PROBLEM - General Chief Complaint: Cardiovascular Problem Stated Complaint: CHEST PAIN Time Seen by Provider: 01/09/20 01:19 Source of Information: Reports: Patient History Limitations: Reports: No Limitations - History of Present Illness INITIAL COMMENTS - FREE TEXT/NARRATIVE: Ms. Gong is a very pleasant 54-year-old woman with a past medical history significant for GERD and a hiatal hernia, status post (what sounds to be) a Philippe fundoplication in [place] in 2013, who now presents to the ED after developing sudden-onset left-sided chest pain that radiated to her left shoulder and left scapular area around 00:45 this morning while she was watching television in bed. She states that the pain is sharp and stabbing in character, a pain, not a discomfort, made worse with deep breaths. She had associated nausea, and vomited in the ED. She had associated dyspnea, but no diaphoresis or sense of impending doom. She took a sublingual nitroglycerin at 00:55, then a second at 01:00 with no relief, however, the patient's symptoms improved after she arrived to the ED. Here in the ED, the patient is found to be hemodynamically stable, afebrile, saturating 96% on room air. She states that she still has some minor discomfort felt in her left shoulder and the left side of her neck. The patient acknowledges that she has had recurrent chest pain in the past, but states that this chest pain was different. Previous chest pains have been more retrosternal, and felt like a tightness. The patient states that she underwent a coronary angiogram last year, which returned clean. It is therefore unclear why she is prescribed nitroglycerin. The patient states that she had a small amount of watery diarrhea 3 or 4 days ago, but none since. Otherwise, she denies recent fever, chills, sore throat, ear pain, nasal or sinus congestion, cough, palpitations, nausea, vomiting, constipation, abdominal pain, urinary symptoms, recent weight gain or weight loss, recent bloody bowel movements or black bowel movements, recent joint aches , headaches, or rashes. The patient's PCP is Dr. Daren Parra. She did not receive an influenza vaccine this season, but agreed to receive one here today. Chest Pain Score (Numeric/FACES): 0 - Related Data Allergies Allergy/AdvReac Type Severity Reaction Status Date / Time codeine Allergy Chest Verified 01/09/20 01:05 Tightness Home Meds: Home Meds Esomeprazole Magnesium [Nexium] 40 mg PO DAILY 01/21/19 [History] Nitroglycerin [Nitrostat] 1 tab PO ASDIRECTED PRN 05/10/19 [History] FLUoxetine [PROzac] 10 mg PO DAILY 01/09/20 [History] Orphenadrine [Norflex] 1 tab PO Q12H PRN #14 tab.er 01/09/20 [Rx] Past Medical History HEENT History: Reports: Allergic Rhinitis, Impaired Vision Other HEENT History: wears glasses Gastrointestinal History: Reports: GERD (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), Hiatal Hernia Psychiatric History: Reports: Anxiety, Depression Endocrine/Metabolic History: Reports: Obesity/BMI 30+, Vitamin D Deficiency - Past Surgical History HEENT Surgical History: Reports: Cataract Surgery (bilateral), Tonsillectomy Cardiovascular Surgical History: Reports: Other (See Below) (Coronary angiogram 2019 - clean) GI Surgical History: Reports: Appendectomy, Cholecystectomy (15 yrs old), Colonoscopy (x 1), EGD (x 3), Philippe Fundoplication (2014) Female Surgical History: Reports: Hysterectomy (parrtial), Other (See Below) (Bladder suspension) Social & Family History - Family History Family Medical History: Noncontributory - Tobacco Use Smoking Status *Q: Never Smoker - Caffeine Use Caffeine Use: Reports: Coffee - Alcohol Use Alcohol Use History: No - Recreational Drug Use Recreational Drug Use: Yes Drug Use in Last 12 Months: No Recreational Drug Type: Reports: Marijuana/Hashish (last smoked when 14 yrs old) , Methamphetamine (last smoked around 2003) - Living Situation & Occupation Living situation: Reports: Single, Alone Occupation: Employed ([employer]) ED ROS GENERAL - Review of Systems Review Of Systems: Comprehensive ROS is negative, except as noted in HPI. ED EXAM, GENERAL - Physical Exam Exam: See Below Exam Limited By: No Limitations General Appearance: Alert, WD/WN, Anxious Eye Exam: Bilateral Eye: EOMI, Normal Inspection Ears: Normal External Exam, Hearing Grossly Normal Nose: Normal Inspection Throat/Mouth: Normal Inspection, Normal Lips, Normal Voice, No Airway Compromise Head: Atraumatic, Normocephalic Neck: Normal Inspection, Full Range of Motion Respiratory/Chest: No Respiratory Distress, Lungs Clear, Normal Breath Sounds, No Accessory Muscle Use, Other (Reproducible tenderness to palpation of the left anterior chest, the left side of her neck, and to the paraspinous musculature medial to the left scapula) Cardiovascular: Normal Peripheral Pulses, Regular Rate, Rhythm, No Edema, No Gallop, No JVD, No Murmur, No Rub Peripheral Pulses: 4+: Radial (L), Radial (R) GI/Abdominal: Normal Bowel Sounds, Soft, Non-Tender (including the epigastrium) , No Organomegaly, No Distention, No Abnormal Bruit, No Mass (Female) Exam: Deferred Rectal (Female) Exam: Deferred Back Exam: Normal Inspection, Full Range of Motion, NT Extremities: Normal Inspection, Normal Range of Motion, No Pedal Edema, Normal Capillary Refill Neurological: Alert, Oriented, Normal Cognition, No Motor/Sensory Deficits Psychiatric: Normal Affect Skin Exam: Warm, Dry, Intact, Normal Color, No Rash EKG INTERPRETATION EKG Date: 01/09/20 Time: 01:00 Rhythm: Other (Sinus tachycardia) Rate (Beats/Min): 107 [place]: LAD-Left [place] Deviation (probably due to LAFB) P-Wave: Present QRS: Other (Late transition) ST-T: Normal QT: Normal Comparison: Change From Previous EKG (LAD new since 05/10/2019) Course - Vital Signs Last Recorded V/S: Last Vital Signs Temp 36.7 C 01/09/20 01:07 Pulse 94 01/09/20 01:07 Resp 19 01/09/20 01:07 BP 132/92 H 01/09/20 01:07 Pulse Ox 96 01/09/20 01:07 - Orders/Labs/Meds Orders: Active Orders 24 hr Category Date Time Status EKG 12 Lead [EKG Documentation Completion] [RC] STAT Care 01/09/20 01:10 Active Influenza Vaccine Charge [RC] .DISCHARGE Care 01/09/20 01:37 Active Ang Chest [CT] Stat Exams 01/09/20 02:37 Taken Chest 2V [CR] Stat Exams 01/09/20 01:36 Taken Sodium Chloride 0.9% [Normal Saline] 1,000 ml Med 01/09/20 02:45 Active IV ASDIRECTED Sodium Chloride 0.9% [Normal Saline] 100 ml Med 01/09/20 02:45 Active IV ASDIRECTED Sodium Chloride 0.9% [Saline Flush] Med 01/09/20 02:38 Active 10 ml FLUSH ONETIME PRN Medication Orders Sodium Chloride (Normal Saline) 1,000 mls @ 150 mls/hr IV ASDIRECTED ELISEO Last Admin: 01/09/20 02:41 Dose: 150 mls/hr Sodium Chloride (Normal Saline) 100 mls @ 80 mls/hr IV ASDIRECTED ELISEO Last Admin: 01/09/20 02:54 Dose: 80 mls/hr Sodium Chloride (Saline Flush) 10 ml FLUSH ONETIME PRN PRN Reason: KEEP VEIN OPEN Last Admin: 01/09/20 02:54 Dose: 10 ml Labs: Laboratory Tests 01/09/20 01/09/20 01/09/20 Range/Units 01:00 01:00 01:00 WBC 5.85 (3.98-10.04) K/mm3 RBC 5.24 H (3.98-5.22) M/mm3 Hgb 13.1 (11.2-15.7) gm/dl Hct 40.1 (34.1-44.9) % MCV 76.5 L (79.4-94.8) fl MCH 25.0 L (25.6-32.2) pg MCHC 32.7 (32.2-35.5) g/dl RDW Std Deviation 41.7 (36.4-46.3) fL Plt Count 219 (182-369) K/mm3 MPV 10.6 (9.4-12.3) fl Neutrophils % (Manual) 45 (40-60) % Band Neutrophils % 0 (0-10) % Lymphocytes % (Manual) 44 H (20-40) % Atypical Lymphs % 0 % Monocytes % (Manual) 7 (2-10) % Eosinophils % (Manual) 3 (0.7-5.8) % Basophils % (Manual) 1 (0.1-1.2) Platelet Estimate Adequate Anisocytosis 1+ slight Microcytosis 1+ slight RBC Morph Comment Not Reportable D-Dimer, Quantitative 0.87 H (0.19-0.50) mg/L Sodium 142 (136-145) mEq/L Potassium 3.7 (3.5-5.1) mEq/L Chloride 108 H (98-107) mEq/L Carbon Dioxide 26 (21-32) mEq/L Anion Gap 11.7 (5-15) BUN 13 (7-18) mg/dL Creatinine 0.8 (0.55-1.02) mg/dL Est Cr Clr Drug Dosing 62.10 mL/min Estimated GFR (MDRD) > 60 (>60) mL/min BUN/Creatinine Ratio 16.3 (14-18) Glucose 110 H (74-106) mg/dL Calcium 9.5 (8.5-10.1) mg/dL Total Bilirubin 0.2 (0.2-1.0) mg/dL AST 13 L (15-37) U/L ALT 23 (14-59) U/L Alkaline Phosphatase 122 H (46-116) U/L Troponin I < 0.017 (0.00-0.056) ng/mL NT-Pro-B Natriuret Pep (0-125) pg/mL Total Protein 7.3 (6.4-8.2) g/dl Albumin 3.4 (3.4-5.0) g/dl Globulin 3.9 gm/dL Albumin/Globulin Ratio 0.9 L (1-2) 01/09/20 01/09/20 Range/Units 01:00 04:47 WBC (3.98-10.04) K/mm3 RBC (3.98-5.22) M/mm3 Hgb (11.2-15.7) gm/dl Hct (34.1-44.9) % MCV (79.4-94.8) fl MCH (25.6-32.2) pg MCHC (32.2-35.5) g/dl RDW Std Deviation (36.4-46.3) fL Plt Count (182-369) K/mm3 MPV (9.4-12.3) fl Neutrophils % (Manual) (40-60) % Band Neutrophils % (0-10) % Lymphocytes % (Manual) (20-40) % Atypical Lymphs % % Monocytes % (Manual) (2-10) % Eosinophils % (Manual) (0.7-5.8) % Basophils % (Manual) (0.1-1.2) Platelet Estimate Anisocytosis Microcytosis RBC Morph Comment D-Dimer, Quantitative (0.19-0.50) mg/L Sodium (136-145) mEq/L Potassium (3.5-5.1) mEq/L Chloride (98-107) mEq/L Carbon Dioxide (21-32) mEq/L Anion Gap (5-15) BUN (7-18) mg/dL Creatinine (0.55-1.02) mg/dL Est Cr Clr Drug Dosing mL/min Estimated GFR (MDRD) (>60) mL/min BUN/Creatinine Ratio (14-18) Glucose (74-106) mg/dL Calcium (8.5-10.1) mg/dL Total Bilirubin (0.2-1.0) mg/dL AST (15-37) U/L ALT (14-59) U/L Alkaline Phosphatase (46-116) U/L Troponin I < 0.017 (0.00-0.056) ng/mL NT-Pro-B Natriuret Pep 64 (0-125) pg/mL Total Protein (6.4-8.2) g/dl Albumin (3.4-5.0) g/dl Globulin gm/dL Albumin/Globulin Ratio (1-2) Meds: Medications Generic Name Dose Route Start Last Admin Trade Name Freq PRN Reason Stop Dose Admin Sodium Chloride 1,000 mls @ 150 mls/hr 01/09/20 02:45 01/09/20 02:41 Normal Saline IV 150 mls/hr ASDIRECTED ELISEO Administration Sodium Chloride 100 mls @ 80 mls/hr 01/09/20 02:45 01/09/20 02:54 Normal Saline IV 80 mls/hr ASDIRECTED ELISEO Administration Sodium Chloride 10 ml 01/09/20 02:38 01/09/20 02:54 Saline Flush FLUSH 10 ml ONETIME PRN Administration KEEP VEIN OPEN Discontinued Medications Generic Name Dose Route Start Last Admin Trade Name Freq PRN Reason Stop Dose Admin Ibuprofen 600 mg 01/09/20 05:47 01/09/20 05:53 Motrin PO 01/09/20 05:48 600 mg ONETIME ONE Administration Influenza Virus Vaccine 1 each 01/09/20 01:37 Pharmacy To Dose - Influenza Vaccine IM 01/09/20 01:38 ONETIME ONE Influenza Virus Vaccine 60 mcg 01/09/20 01:45 01/09/20 01:44 Fluzone Quad Syringe IM 01/09/20 01:46 60 mcg .ONCE ONE Administration Iopamidol 100 ml 01/09/20 02:38 01/09/20 02:54 Isovue-370 (76%) IVPUSH 01/09/20 02:39 100 ml ONETIME ONE Administration Orphenadrine Citrate 100 mg 01/09/20 01:37 01/09/20 01:42 Norflex PO 01/09/20 01:38 100 mg ONETIME STA Administration - Re-Assessments/Exams Free Text/Narrative Re-Assessment/Exam: 01/09/20 01:38 The fact that the patient's pain is easily reproduced by palpating her chest and back strongly suggests a musculoskeletal etiology, however, I have ordered a work-up that includes blood work and a chest x-ray. In the meantime, will start the patient on oral Norflex. 01/09/20 02:30 Two-view chest radiograph reviewed. There is mild cardiomegaly, but no pulmonary vascular congestion or pleural effusions to suggest decompensated CHF. No focal infiltrate. No pneumothorax. Small hiatal hernia noted. Formal read per the Radiologist pending. The patient's CBC is unremarkable. Her CMP is remarkable for a chloride slightly elevated at 108, and a blood glucose mildly elevated at 110. Her alkaline phosphatase is mildly elevated at 122, with the remainder of her CMP being unremarkable. Her troponin is undetectably low. Her BNP is within normal limits at 64. Her D-dimer is mildly elevated at 0.87. 01/09/20 02:37 Test results discussed with the patient. As above, the patient's D-dimer is modestly elevated. I explained that an elevated D-dimer could be due to a pulmonary embolus, however, in the patient's case I doubt it, since a pulmonary embolus usually causes a substantial rise in the D-dimer, not a modest rise, and that when a patient experiences pleuritic chest pain from a pulmonary embolus, it is due to a pulmonary infarct, which is visible on a chest x-ray, and the patient does not have. Nevertheless, I offered to perform a CT angiogram to rule out a PE, and the patient would like that to be done. I have ordered IV fluid. I have also ordered a second troponin to be drawn 4 hours after the onset of the patient's symptoms, at 04:45. 01/09/20 04:04 CT angiogram of the chest is read by [facility] as: 1. Suboptimal contrast opacification of the pulmonary arteries for assessment of pulmonary embolism. No pulmonary embolism in the main or right or left central pulmonary arteries. Assessment of the more distal pulmonary arterial branches is somewhat limited by suboptimal contrast opacification. No definite pulmonary embolism. 2. New masslike area of consolidation in the peripheral inferior left hepatic lobe, measuring 2.3 x 1.5 x 2.5 cm. Neoplasm, pneumonia, and atelectasis are differential considerations. Suggest comparison with more recent prior imaging , if available. For both low risk and high risk patients, consider CT at 3 months, PET/CT or biopsy. (Fatimah et al., Fleischner Society, 2017). 3. New nonspecific mildly enlarged left hilar lymph node. This may be reassessed at time follow-up. 4. Moderate hiatal hernia. 01/09/20 05:42 The patient's repeat troponin remains undetectably low. 01/09/20 05:47 Test results discussed with the patient. As above, today's work-up is unremarkable with respect to the cause of her pain, which appears to be musculoskeletal. I will start the patient on ibuprofen, have her continue to take that [id number], and I will prescribe Norflex that the patient can start tonight. I would like her to follow-up with her PCP to make sure that she gets appropriate imaging in about 3 months, as recommended by the Radiologist. The patient expressed understanding. The patient will be given an influenza vaccine prior to discharge. Departure - Departure Time of Disposition: 05:48 Disposition: Home, Self-Care 01 Condition: Good Clinical Impression: Musculoskeletal chest pain, Abnormal CT of liver - Discharge Information *PRESCRIPTION DRUG MONITORING PROGRAM REVIEWED*: Not Applicable *COPY OF PRESCRIPTION DRUG MONITORING REPORT IN PATIENT OBEY: Not Applicable Prescriptions: Orphenadrine [Norflex] 1 tab PO Q12H PRN #14 tab.er PRN Reason: Muscle Spasm Referrals: Daren Parra MD [Primary Care Provider] - Forms: ED Department Discharge Additional Instructions: You were seen in the emergency room after developing sudden onset left-sided chest pain that radiated to your left shoulder and left upper back. Work-up in the ER included blood work, a chest x-ray, a CT angiogram of your chest, and an ECG. Your blood work was unremarkable. You have not suffered a heart attack. The CT angiogram of your chest did not find a blood clot in your lungs, however , it did find an abnormality in the left lobe of your liver, as well as an enlarged left hilar lymph node. The radiologist recommended a repeat CT scan, or PET/CT scan, or biopsy, in 3 months. Please follow-up with your PCP, Dr. Daren Parra, in this regard. Based on your history, physical exam, and ER tests, the cause of your pain is most likely musculoskeletal. You have been started on the muscle relaxant Norflex, and a prescription for Norflex has been sent to the [facility], located just south and across the [address] from [facility]. The pharmacy will be open between noon and 4:00 this afternoon. Take 1 tablet of Norflex every 12 hours, starting this evening, Friday, 2019, as prescribed. Norflex works well with ibuprofen. Take 3 tablets (600 mg) of [id number] ibuprofen up to every 8 hours, with food, as needed for discomfort. Stay adequately hydrated. If any other problems, please do not hesitate to return to the ER. *You were given an influenza vaccine during your ER visit.* Sepsis Event Note - Evaluation Sepsis Screening Result: No Definite Risk - Focused Exam Vital Signs: Vital Signs Temp Pulse Resp BP Pulse Ox 01/09/20 01:07 36.7 C 94 19 132/92 H 96 Date Exam was Performed: 01/09/20 Time Exam was Performed: 05:54 - My Orders Last 24 Hours: My Active Orders 01/09/20 01:10 EKG 12 Lead [EKG Documentation Completion] [RC] STAT 01/09/20 01:36 Chest 2V [CR] Stat 01/09/20 01:37 Influenza Vaccine Charge [RC] .DISCHARGE 01/09/20 02:37 Ang Chest [CT] Stat 01/09/20 02:38 Sodium Chloride 0.9% [Saline Flush] 10 ml FLUSH ONETIME PRN 01/09/20 02:45 Sodium Chloride 0.9% [Normal Saline] 1,000 ml IV ASDIRECTED Sodium Chloride 0.9% [Normal Saline] 100 ml IV ASDIRECTED - Assessment/Plan Last 24 Hours: My Active Orders 01/09/20 01:10 EKG 12 Lead [EKG Documentation Completion] [RC] STAT 01/09/20 01:36 Chest 2V [CR] Stat 01/09/20 01:37 Influenza Vaccine Charge [RC] .DISCHARGE 01/09/20 02:37 Ang Chest [CT] Stat 01/09/20 02:38 Sodium Chloride 0.9% [Saline Flush] 10 ml FLUSH ONETIME PRN 01/09/20 02:45 Sodium Chloride 0.9% [Normal Saline] 1,000 ml IV ASDIRECTED Sodium Chloride 0.9% [Normal Saline] 100 ml IV ASDIRECTED
[2020-01-09] MEDS ORDERED: FLU Vacc QS2019-20(6MOS+)/PF 60 MCG/0.5 ML SYRINGE IM ONE (01:45)
[2020-01-09] MEDS ORDERED: Iopamidol 755 Mg/ML 100 ML Bottle IVPUSH ONE (02:38)
[2020-01-09] MEDS ORDERED: Sodium Chloride 0.9% 10 ML Syringe FLUSH PRN (02:38)
[2020-01-09] MEDS ORDERED: Sodium Chloride 0.9% 1,000 ML IV SCH (02:45)
[2020-01-09] MEDS ORDERED: Sodium Chloride 0.9% 100 ML IV SCH (02:45)
[2020-01-09] MEDS ORDERED: Ibuprofen 600 MG Tab PO ONE (05:47)
--- NOTE | 2020-01-09 10:28 | CR ---
Chest: 2 views of the chest were obtained. Comparison: Prior chest x-ray of 11/17/18. Moderate sized hiatal hernia is noted. Heart size at the upper limits normal. Tortuous thoracic aorta is seen. Lungs are clear with no acute parenchymal change. Bony structures are grossly intact. Impression: 1. Findings as noted above. 2. Nothing acute is identified on 2 view chest x-ray. Diagnostic code #2 This report was dictated in MDT
--- NOTE | 2020-01-09 10:28 | CT ---
CT chest Technique: Multiple axial sections through the chest were obtained. Intravenous contrast was utilized. Study was performed as a pulmonary angiogram protocol. Comparison: Previous CT chest of 02/02/16. Findings: Aorta shows no aneurysm. Mild atherosclerotic calcification is noted within the thoracic aorta. Pulmonary arteries are suboptimally opacified. No filling defects within the main or within the proximal segmental branches are seen. Smaller subsegmental pulmonary emboli could easily be missed. No axillary adenopathy is seen. No pericardial thickening is seen. Moderate sized hiatal hernia is noted. Visualized upper abdominal structures shows no discrete abnormality. Questionable lymph node within left hilar region. Mediastinum shows no other adenopathy. Fluid is seen within the distal esophagus compatible with reflux. Density is noted within the left lung base. Uncertain if this is due to lung mass or represents other findings such as pneumonia or nodular area of atelectasis. Lungs show no other acute abnormality. Bone window settings were reviewed which shows no acute osseous finding. Impression: 1. Suboptimal opacification of the pulmonary arteries, no findings of pulmonary embolism within the main or proximal segmental branches. Smaller subsegmental pulmonary emboli could easily be missed. 2. Questionable lymph node within the left hilar region. 3. Masslike density within the left base with differential of actual neoplastic mass versus thick area of atelectasis or pneumonia. Recommend treatment as a pneumonia and follow-up contrast enhanced chest CT obtained in 3-4 months. This follow-up study would occur March or April,. 4. Hiatal hernia and other findings. Diagnostic code #9 This report was dictated in MDT I agree with preliminary report from [facility], finalized on 01/09/20, 5:02 AM Central Daylight Time
== END 2020-01-09 06:00 | disposition home or self-care (01) ==
LOC: JD.ED 00:57
DX: R07.89 Other chest pain (principal); R93.2 Abnormal findings on diagnostic imaging of liver and biliary tract; Z23 Encounter for immunization; K21.9 Gastro-esophageal reflux disease without esophagitis; F41.9 Anxiety disorder, unspecified; F32.9 Major depressive disorder, single episode, unspecified; E66.9 Obesity, unspecified; Z68.33 Body mass index [BMI] 33.0-33.9, adult; R00.0 Tachycardia, unspecified; Z90.49 Acquired absence of other specified parts of digestive tract; Z90.710 Acquired absence of both cervix and uterus; Z88.5 Allergy status to narcotic agent; Z79.899 Other long term (current) drug therapy
CPT/HCPCS: 36415; 71046; 71275; 80053; 83880; 84484; 85007; 85027; 85379; 90471; 90686; 93005; 96360; 96361; 99285; A9270; J7030; J7050; Q9967; 93010; 99284; G0008

== ENCOUNTER 2020-08-06 20:08 | Emergency (ER) | payer MEDICAID ==
[2020-08-06 20:26] VITALS: BP 112/53; PULSE 80
--- NOTE | 2020-08-06 21:39 | EDM.PDOC ---
ED HPI GENERAL MEDICAL PROBLEM - General Chief Complaint: ENT Problem Stated Complaint: LEFT EAR & THROAT PAIN Time Seen by Provider: 08/06/20 21:04 Source of Information: Reports: Patient History Limitations: Reports: No Limitations - History of Present Illness INITIAL COMMENTS - FREE TEXT/NARRATIVE: Mrs. Gong is a very pleasant 55-year-old woman who now presents to the ED with a sore throat, left ear pain, and body aches that developed about 40 minutes prior to arrival to the ED. No associated fever, nausea, or abdominal pain. She states that she took a single leftover ciprofloxacin from 2015, along with a "Flonax" = naproxen 550 mg, about 30 minutes prior to arrival. No prior similar symptoms. The patient is not aware of any similarly ill close contacts. Here in the ED, the patient is found to be hemodynamically stable, afebrile, saturating 94% on room air. Prior to this evening, the patient denies having a recent fever, chills, sore throat, ear pain, nasal or sinus congestion, cough, dyspnea, chest pain, palpitations, nausea, vomiting, constipation, diarrhea, abdominal pain, urinary symptoms, recent weight gain or weight loss, recent bloody bowel movements or black bowel movements, recent joint aches, headaches, or rashes. The patient's PCP is Dr. Daren Parra. The patient states that she did receive an influenza vaccine this season. Left Face/Facial Pain Score (Numeric/FACES): 5 - Related Data Allergies Allergy/AdvReac Type Severity Reaction Status Date / Time codeine Allergy Chest Verified 08/06/20 20:26 Tightness Home Meds: Home Meds Esomeprazole Magnesium [Nexium] 40 mg PO DAILY 01/21/19 [History] Nitroglycerin [Nitrostat] 1 tab PO ASDIRECTED PRN 05/10/19 [History] FLUoxetine [PROzac] 10 mg PO DAILY 01/09/20 [History] Orphenadrine [Norflex] 1 tab PO Q12H PRN #14 tab.er 01/09/20 [Rx] Past Medical History HEENT History: Reports: Allergic Rhinitis, Impaired Vision (wears glasses) Gastrointestinal History: Reports: GERD (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), Hiatal Hernia Psychiatric History: Reports: Anxiety, Depression Endocrine/Metabolic History: Reports: Obesity/BMI 30+, Vitamin D Deficiency - Past Surgical History HEENT Surgical History: Reports: Cataract Surgery (bilateral), Tonsillectomy (as a teenager) Cardiovascular Surgical History: Reports: Other (See Below) (Coronary angiogram 2019 -> clean) GI Surgical History: Reports: Appendectomy, Cholecystectomy (1980), Colonoscopy (x 1), EGD (x 3), Philippe Fundoplication (2014) Female Surgical History: Reports: Hysterectomy (partial), Other (See Below) (Bladder suspension) Social & Family History - Tobacco Use Tobacco Use Status *Q: Never Tobacco User Second Hand Smoke Exposure: No - Alcohol Use Alcohol Use History: No - Recreational Drug Use Recreational Drug Use: Yes Drug Use in Last 12 Months: No Recreational Drug Type: Reports: Marijuana/Hashish (last smoked around 1978), Methamphetamine (last smoked 2003) - Living Situation & Occupation Living situation: Reports: , Alone Occupation: Unemployed ED ROS ENT - Review of Systems Review Of Systems: Comprehensive ROS is negative, except as noted in HPI. ED EXAM, ENT - Physical Exam Exam: See Below Exam Limited By: No Limitations General Appearance: Alert, WD/WN, No Apparent Distress Eye Exam: Bilateral Eye: EOMI, Normal Inspection (s/p cataract surgery) Ears: Normal External Exam, Normal Canal, Hearing Grossly Normal, Normal TMs Nose: Other (Right nasal mucosal edema. Left essentially normal.) Mouth/Throat: Normal Inspection, Normal Gums, Normal Lips, Normal Oropharynx, Normal Teeth Head: Atraumatic, Normocephalic Neck: Normal Inspection, Supple, Non-Tender, Full Range of Motion. No: Lymphadenopathy (L), Lymphadenopathy (R) Course - Vital Signs Last Recorded V/S: Last Vital Signs Temp 37.0 C 08/06/20 20:23 Pulse 80 08/06/20 20:23 Resp 16 08/06/20 20:23 BP 112/53 L 08/06/20 20:23 Pulse Ox 94 L 08/06/20 20:23 - Re-Assessments/Exams Free Text/Narrative Re-Assessment/Exam: 08/06/20 21:33 As above, the patient developed a sore throat, left ear pain, and body aches about 40 minutes prior to arrival to the ED. She is afebrile, and her physical exam, including that of both ears and her oropharynx, is completely normal, indicating viral pharyngitis with a referred pain to her left ear. Given the patient's age and tonsillectomy as a teenager, strep throat is not a possibility, therefore a rapid strep test is not indicated. I will discharge her home with the recommendation that she gargle with warm salt water, use Chloraseptic spray, Tylenol, or ibuprofen. Departure - Departure Time of Disposition: 21:35 Disposition: Home, Self-Care 01 Condition: Good Clinical Impression: Viral pharyngitis - Discharge Information *PRESCRIPTION DRUG MONITORING PROGRAM REVIEWED*: Not Applicable *COPY OF PRESCRIPTION DRUG MONITORING REPORT IN PATIENT OBEY: Not Applicable Referrals: Daren Parra MD [Primary Care Provider] - Additional Instructions: You were seen in the emergency room after developing a sore throat, left ear pain, and body aches. Based on your history and physical examination, you are most likely suffering from viral pharyngitis. Unfortunately, there are no medicines to get rid of viral pharyngitis - it will have to run its course. We recommend that you take Tylenol or ibuprofen as needed for discomfort. Consider also warm salt water gargles and Chloraseptic spray. If any other problems, please do not hesitate to return to the ER. Sepsis Event Note (ED) - Evaluation Sepsis Screening Result: No Definite Risk - Focused Exam Vital Signs: Vital Signs Temp Pulse Resp BP Pulse Ox 08/06/20 20:23 37.0 C 80 16 112/53 L 94 L
== END 2020-08-06 21:47 | disposition home or self-care (01) ==
LOC: JD.ED 20:08
DX: J02.9 Acute pharyngitis, unspecified (principal); K21.9 Gastro-esophageal reflux disease without esophagitis; F41.9 Anxiety disorder, unspecified; E66.9 Obesity, unspecified; F32.9 Major depressive disorder, single episode, unspecified; Z90.49 Acquired absence of other specified parts of digestive tract; Z88.5 Allergy status to narcotic agent; Z90.710 Acquired absence of both cervix and uterus; Z79.899 Other long term (current) drug therapy
CPT/HCPCS: 99282; 99283

== ENCOUNTER 2020-10-19 21:24 | Emergency (ER) | payer MEDICAID ==
[2020-10-19 21:54] VITALS: BP 170/103; PULSE 71
[2020-10-19] MEDS ORDERED: Sodium Chloride 0.9% 1,000 ML IV ONE (22:10)
[2020-10-19] MEDS ORDERED: Metoclopramide 10 MG/2 ML SDV IVPUSH STA (22:10)
--- NOTE | 2020-10-19 22:15 | EDM.PDOC ---
ED HPI GENERAL MEDICAL PROBLEM - General Chief Complaint: Gastrointestinal Problem Stated Complaint: VOMITING, NAUSEA, LIGHT HEADED Time Seen by Provider: 10/19/20 21:49 Source of Information: Reports: Patient History Limitations: Reports: No Limitations - History of Present Illness INITIAL COMMENTS - FREE TEXT/NARRATIVE: Mrs. Gong is a very pleasant 55-year-old woman who now presents the ED after developing mild watery diarrhea around 13:00 afternoon, followed by epigastric pain, nausea, vomiting, lightheadedness, and a headache around 18:30. No recent fever. No recent urinary symptoms. No prior similar symptoms. The patient states that she took 4 mg of oral Zofran around 19:00 tonight, prior to coming to the ED. The patient states that both her son and niece developed similar symptoms this morning. The patient states that the 3 of them, and no one else, ate some homemade meatball soup together last night. The patient states that she cooked the meatballs perfectly, and that the soup was simmered. She acknowledges, however, that they all shared some tortillas. Here in the ED, the patient's initial BP is found to be elevated at 170/103, otherwise, she is hemodynamically stable, afebrile, saturating 93% on room air. Prior to this afternoon, the patient denies having a recent fever, chills, sore throat, ear pain, nasal or sinus congestion, cough, dyspnea, chest pain, palpitations, nausea, vomiting, constipation, diarrhea, abdominal pain, urinary symptoms, recent weight gain or weight loss, recent bloody bowel movements or black bowel movements, recent joint aches, headaches, or rashes. The patient's PCP is Dr. Daren Parra. She already received an influenza vaccine this season. Upper Abdomen Pain Score (Numeric/FACES): 5 - Related Data Allergies Allergy/AdvReac Type Severity Reaction Status Date / Time codeine Allergy Chest Verified 10/19/20 21:54 Tightness Home Meds: Home Meds Esomeprazole Magnesium [Nexium] 40 mg PO DAILY 01/21/19 [History] FLUoxetine HCl [Fluoxetine HCl] 40 mg PO DAILY 10/19/20 [History] Magnesium Oxide [Magnesium] 200 mg PO DAILY 10/19/20 [History] Ondansetron [Zofran ODT] 1 tab PO Q8H PRN #10 tab.dis 10/19/20 [Rx] Ondansetron [Zofran ODT] 4 mg PO Q6H PRN 10/19/20 [History] Past Medical History HEENT History: Reports: Allergic Rhinitis, Impaired Vision (wears glasses) Gastrointestinal History: Reports: GERD, Hiatal Hernia, Other (See Below) (Possible Villasenor esophagus) Psychiatric History: Reports: Anxiety, Depression Endocrine/Metabolic History: Reports: Obesity/BMI 30+, Vitamin D Deficiency - Infectious Disease History Infectious Disease History: Reports: Chicken Pox, Measles, Mumps - Past Surgical History HEENT Surgical History: Reports: Cataract Surgery (bilateral), Tonsillectomy (as a teenager) Cardiovascular Surgical History: Reports: Other (See Below) (Coronary angiogram 2019 -> clean) GI Surgical History: Reports: Appendectomy, Cholecystectomy (1980), Colonoscopy (x 1), EGD (x 3), Philippe Fundoplication (2014) Female Surgical History: Reports: Hysterectomy (partial), Other (See Below) (Bladder suspension) Social & Family History - Tobacco Use Tobacco Use Status *Q: Never Tobacco User Second Hand Smoke Exposure: No - Caffeine Use Caffeine Use: Reports: Coffee, Soda - Alcohol Use Alcohol Use History: No - Recreational Drug Use Recreational Drug Use: Yes Drug Use in Last 12 Months: No Recreational Drug Type: Reports: Marijuana/Hashish (last smoked 1978), Methamphetamine (last smoked 2003) - Living Situation & Occupation Living situation: Reports: , Alone Occupation: Unemployed ED ROS GENERAL - Review of Systems Review Of Systems: Comprehensive ROS is negative, except as noted in HPI. ED EXAM, GI/ABD - Physical Exam Exam: See Below Exam Limited By: No Limitations General Appearance: Alert, WD/WN, No Apparent Distress Eyes: Bilateral: Normal Appearance, EOMI Ears: Normal External Exam, Hearing Grossly Normal Nose: Normal Inspection Throat/Mouth: Normal Inspection, Normal Lips, Normal Voice, No Airway Compromise Head: Atraumatic, Normocephalic Neck: Normal Inspection, Full Range of Motion Respiratory/Chest: No Respiratory Distress, Lungs Clear, Normal Breath Sounds, No Accessory Muscle Use Cardiovascular: Normal Peripheral Pulses, Regular Rate, Rhythm, No Gallop, No J VD, No Murmur, No Rub GI/Abdominal Exam: Normal Bowel Sounds, Soft, Non-Tender (including the epigastrium), No Organomegaly, No Distention, No Abnormal Bruit, No Mass Back Exam: Normal Inspection, Full Range of Motion, NT Extremities: Normal Inspection, Normal Range of Motion, Normal Capillary Refill Neurological: Alert, Oriented, Normal Cognition, No Motor/Sensory Deficits Psychiatric: Normal Affect Skin Exam: Warm, Dry, Intact, Normal Color, No Rash Course - Vital Signs Last Recorded V/S: Last Vital Signs Temp 36.2 C 10/19/20 21:49 Pulse 71 10/19/20 21:49 Resp 17 10/19/20 21:49 BP 170/103 H 10/19/20 21:49 Pulse Ox 93 L 10/19/20 21:49 Orthostatic Blood Pressure [ 150/93 Standing] Orthostatic Blood Pressure [ 141/85 Supine] - Orders/Labs/Meds Orders: Active Orders 24 hr Category Date Time Status Orthostatic Vital Signs [RC] STAT Care 10/19/20 22:08 Active Labs: Laboratory Tests 10/19/20 10/19/20 Range/Units 22:13 22:13 WBC 5.99 (3.98-10.04) K/mm3 RBC 5.10 (3.98-5.22) M/mm3 Hgb 12.4 (11.2-15.7) gm/dl Hct 39.4 (34.1-44.9) % MCV 77.3 L (79.4-94.8) fl MCH 24.3 L (25.6-32.2) pg MCHC 31.5 L (32.2-35.5) g/dl RDW Std Deviation 43.4 (36.4-46.3) fL Plt Count 202 (182-369) K/mm3 MPV 11.3 (9.4-12.3) fl Neutrophils % (Manual) 61 H (40-60) % Band Neutrophils % 0 (0-10) % Lymphocytes % (Manual) 35 (20-40) % Atypical Lymphs % 0 % Monocytes % (Manual) 4 (2-10) % Eosinophils % (Manual) 0 L (0.7-5.8) % Basophils % (Manual) 0 L (0.1-1.2) Platelet Estimate Adequate Hypochromasia 1+ slight Microcytosis 1+ slight RBC Morph Comment Not Reportable Sodium 147 H (136-145) mEq/L Potassium 3.4 L (3.5-5.1) mEq/L Chloride 108 H (98-107) mEq/L Carbon Dioxide 32 (21-32) mEq/L Anion Gap 10.4 (5-15) BUN 13 (7-18) mg/dL Creatinine 0.7 (0.55-1.02) mg/dL Est Cr Clr Drug Dosing 70.13 mL/min Estimated GFR (MDRD) > 60 (>60) mL/min BUN/Creatinine Ratio 18.6 H (14-18) Glucose 106 (74-106) mg/dL Calcium 9.0 (8.5-10.1) mg/dL Magnesium 2.2 (1.8-2.4) mg/dl Total Bilirubin 0.2 (0.2-1.0) mg/dL AST 10 L (15-37) U/L ALT 18 (14-59) U/L Alkaline Phosphatase 106 (46-116) U/L Total Protein 7.1 (6.4-8.2) g/dl Albumin 3.3 L (3.4-5.0) g/dl Globulin 3.8 gm/dL Albumin/Globulin Ratio 0.9 L (1-2) Lipase 103 (73-393) U/L Meds: Medications Discontinued Medications Generic Name Dose Route Start Last Admin Trade Name Freq PRN Reason Stop Dose Admin Sodium Chloride 1,000 mls @ 999 mls/hr 10/19/20 22:10 10/19/20 22:22 Normal Saline IV 10/19/20 23:10 999 mls/hr ONETIME ONE Administration Metoclopramide HCl 10 mg 10/19/20 22:10 10/19/20 22:23 Reglan IVPUSH 10/19/20 22:11 10 mg ONETIME STA Administration - Re-Assessments/Exams Free Text/Narrative Re-Assessment/Exam: 10/19/20 22:11 As above, the patient developed some watery diarrhea around 13:00 this afternoon, then epigastric pain, nausea, vomiting, lightheadedness, and a headache around 18:30 tonight, in the context that her son and niece developed similar symptoms this morning, after all 3 of them ate some homemade meatball soup last night. This history is strongly suspicious for viral gastroenteritis, however, I do not suspect that the soup was the culprit, rather, I suspect that one of the 3 brought a virus on their hands, which was spread when the all 3 of them shared some tortillas. The patient states that she took 4 mg of oral Zofran around 19:00 tonight. Her BP is elevated at 170/103, otherwise, her physical exam, including that of her abdomen, is unremarkable. Because the patient reports lightheadedness, I have ordered orthostatics, along with several blood tests. In the meantime, the patient will be given a bolus of IV fluid and some IV Reglan to see if we can get her feeling better. 10/19/20 22:30 The patient is not orthostatic. 10/19/20 23:10 The patient's CBC is unremarkable. Her CMP is remarkable for hyponatremia of 147, with slight hypokalemia of 3.4, and the remainder of her CMP being unremarkable. Her magnesium level is within normal limits at 2.2. Her lipase level is within normal limits at 103. 10/19/20 23:40 The 1 L of IV fluid has finished infusing, and the patient states she is feeling considerably better. I will discharge her home with a prescription for Zofran, and the recommendation that she take a bland diet until her symptoms have resolved. She may add [id number] loperamide if her diarrhea becomes significant. Departure - Departure Time of Disposition: 23:40 Disposition: Home, Self-Care 01 Condition: Good Clinical Impression: Viral gastroenteritis - Discharge Information *PRESCRIPTION DRUG MONITORING PROGRAM REVIEWED*: Not Applicable *COPY OF PRESCRIPTION DRUG MONITORING REPORT IN PATIENT OBEY: Not Applicable Referrals: Daren Parra MD [Primary Care Provider] - Forms: ED Department Discharge Additional Instructions: You were seen in the emergency room after developing upper abdominal pain, nausea, vomiting, lightheadedness, and a headache this afternoon, along with similar symptoms in your son and a niece after all sharing a meal last night. Work-up in the ER included positional blood pressure checks and several blood tests. Your blood work showed that you were a little dehydrated, however, you were given a liter of IV fluid in the ER. The remainder of your tests were unremarkable. Based on your history, physical exam, and ER tests, you (and your son and niece) are most likely suffering from viral gastroenteritis. The virus was most likely picked up when you shared tortillas, and had nothing to do with the soup that you made. A prescription for the anti-nausea medicine Zofran has been sent to the [facility], located at [address] [place] [address]. You may dissolve 1 tablet of Zofran on your tongue up to every 8 hours, as needed for nausea/vomiting. If your diarrhea becomes significant, we recommend that you take [id number] loperamide, in accordance with the directions on the label. Generic loperamide is just as good as name-brand Imodium AD. We recommend that you stay adequately hydrated. Gatorade or Powerade are best. If you are hungry, we recommend a bland diet, such as rice, oatmeal, or toast, until your symptoms have resolved. Chicken noodle soup with saltine crackers is an excellent choice. If any other problems, please do not hesitate to return to the ER. Sepsis Event Note (ED) - Evaluation Sepsis Screening Result: No Definite Risk - Focused Exam Vital Signs: Vital Signs Temp Pulse Resp BP Pulse Ox 10/19/20 21:49 36.2 C 71 17 170/103 H 93 L - My Orders Last 24 Hours: My Active Orders 10/19/20 22:08 Orthostatic Vital Signs [RC] STAT - Assessment/Plan Last 24 Hours: My Active Orders 10/19/20 22:08 Orthostatic Vital Signs [RC] STAT
== END 2020-10-19 23:54 | disposition home or self-care (01) ==
LOC: JD.ED 21:24
DX: A08.4 Viral intestinal infection, unspecified (principal); K21.9 Gastro-esophageal reflux disease without esophagitis; E66.9 Obesity, unspecified; Z68.33 Body mass index [BMI] 33.0-33.9, adult; Z88.5 Allergy status to narcotic agent; Z79.899 Other long term (current) drug therapy
CPT/HCPCS: 36415; 80053; 83690; 83735; 85007; 85027; 96374; 99284; J2765; J7030; 99283

== ENCOUNTER 2021-02-09 21:04 | Emergency (ER) | payer MEDICAID ==
[2021-02-09 21:25] VITALS: BP 180/89; PULSE 67
[2021-02-09] MEDS ORDERED: Sodium Chloride 0.9% 10 ML Syringe FLUSH PRN (21:33)
[2021-02-09] MEDS ORDERED: Ondansetron 4 MG/2 ML SDV IVPUSH ONE (21:33)
[2021-02-09] MEDS ORDERED: Sodium Chloride 0.9% 1,000 ML IV SCH (21:45)
--- NOTE | 2021-02-09 21:53 | EDM.PDOC ---
ED HPI GENERAL MEDICAL PROBLEM - General Chief Complaint: Chest Pain Stated Complaint: FEVER/CHILLS/HERNIA SURGERY/ALOTOFPAIN Time Seen by Provider: 02/09/21 21:23 Source of Information: Reports: Patient History Limitations: Reports: No Limitations - History of Present Illness INITIAL COMMENTS - FREE TEXT/NARRATIVE: The patient presents for chest pain and abdominal pain. The patient had hiatal hernia repair at the [facility] on 02/01/21. She said she has been doing good except for a few days ago she started having some shortness of breath with exertion. She denies pain or swelling in her legs. She has no headache, fever or cough. She does have some chills. She then developed severe left sided abdominal pain that radiated into her chest. She took a pain pill and it was better. She says she has had bowel movements and they have been good. She has nausea but no vomiting. She has no diarrhea. She has no dysuria. Onset: Sudden Duration: Hour(s): Location: Reports: Chest, Abdomen Quality: Reports: Sharp Severity: Severe Improves with: Reports: Medication Worsens with: Reports: None Associated Symptoms: Reports: Chest Pain, Fever/Chills, Nausea/Vomiting, [place] rtness of Breath. Denies: Cough, Headaches - Related Data Allergies Allergy/AdvReac Type Severity Reaction Status Date / Time codeine Allergy Chest Verified 02/09/21 21:24 Tightness Home Meds: Home Meds FLUoxetine HCl [Fluoxetine HCl] 40 mg PO DAILY 10/19/20 [History] Magnesium Oxide [Magnesium] 200 mg PO DAILY 10/19/20 [History] Ondansetron [Zofran ODT] 4 mg PO Q6H PRN 10/19/20 [History] cephALEXin [Keflex] 500 mg PO BID #10 cap 02/10/21 [Rx] Past Medical History HEENT History: Reports: Allergic Rhinitis, Impaired Vision Other HEENT History: wears glasses Cardiovascular History: Reports: Other (See Below) Other Cardiovascular History: angiogram Respiratory History: Reports: Pneumonia, Recurrent Other Respiratory History: pneumonia Gastrointestinal History: Reports: GERD, Hiatal Hernia, Other (See Below) Other Gastrointestinal History: nausea and vomiting Genitourinary History: Reports: Pyelonephritis Other Genitourinary History: L flank pain ; hiatial hernia 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: Other (See Below) Other NIGHT CLERK AUDITOR History: atrophic vaginitis, fibroid, pelvic cramping Musculoskeletal History: Reports: None Neurological History: Reports: Headaches, Chronic Psychiatric History: Reports: Anxiety, Depression Endocrine/Metabolic History: Reports: Obesity/BMI 30+, Vitamin D Deficiency Hematologic History: Reports: None Immunologic History: Reports: None Oncologic (Cancer) History: Reports: None Dermatologic History: Reports: None - Infectious Disease History Infectious Disease History: Reports: Chicken Pox, Measles, Mumps - Past Surgical History HEENT Surgical History: Reports: Cataract Surgery, Tonsillectomy Cardiovascular Surgical History: Reports: Other (See Below) Other Cardiovascular Surgeries/Procedures: angiogram GI Surgical History: Reports: Appendectomy, Cholecystectomy, Colonoscopy, EGD, Philippe Fundoplication Other GI Surgeries/Procedures: surgery esophagus Female Surgical History: Reports: Hysterectomy, Other (See Below) Other Female Surgeries/Procedures: surgery on hiatial hernia in [place], 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 Social & Family History - Family History Family Medical History: No Pertinent Family History - Tobacco Use Tobacco Use Status *Q: Never Tobacco User Second Hand Smoke Exposure: No - Caffeine Use Caffeine Use: Reports: None - Recreational Drug Use Recreational Drug Use: Yes Drug Use in Last 12 Months: No Recreational Drug Type: Reports: Cocaine, 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 Denies: Fever HEENT: Reports: No Symptoms Respiratory: Reports: Shortness of Breath. Denies: Cough Cardiovascular: Reports: Chest Pain Endocrine: Reports: No Symptoms GI/Abdominal: Reports: Abdominal Pain, Nausea. Denies: Diarrhea, Vomiting : Reports: No Symptoms Musculoskeletal: Reports: No Symptoms ED EXAM, GENERAL - Physical Exam Exam: See Below Exam Limited By: No Limitations General Appearance: Alert, No Apparent Distress Ears: Normal External Exam Nose: Normal Inspection Head: Atraumatic, Normocephalic Neck: Normal Inspection Respiratory/Chest: No Respiratory Distress, Lungs Clear, Normal Breath Sounds Cardiovascular: Regular Rate, Rhythm, No Edema, No Murmur GI/Abdominal: Soft, No Organomegaly, No Mass, Tender (Moderate tenderness to the left abdomen) Extremities: Normal Inspection Neurological: Alert, Oriented, No Motor/Sensory Deficits #1 Interpretation EKG Date: 02/09/21 Time: 21:20 Rhythm: NSR Rate (Beats/Min): 63 [place]: LAD-Left [place] Deviation P-Wave: Present QRS: Normal ST-T: Normal QT: Normal Course - Vital Signs Last Recorded V/S: Last Vital Signs Temp 97.9 F 02/09/21 21:20 Pulse 67 02/09/21 21:20 Resp 16 02/09/21 21:20 BP 180/89 H 02/09/21 21:20 Pulse Ox 93 L 02/09/21 21:20 - Orders/Labs/Meds Orders: Active Orders 24 hr Category Date Time Status Cardiac Monitoring [RC] . DIRECTED Care 02/09/21 21:33 Active EKG Documentation Completion [RC] STAT Care 02/09/21 21:34 Active Peripheral IV Care [RC] . DIRECTED Care 02/09/21 21:34 Active Abdomen Pelvis w Cont [CT] Stat Exams 02/09/21 21:34 Taken Ang Chest [CT] Stat Exams 02/09/21 21:34 Taken Sodium Chloride 0.9% [Normal Saline] 1,000 ml Med 02/09/21 21:45 Active IV ASDIRECTED Sodium Chloride 0.9% [Normal Saline] 100 ml Med 02/09/21 23:15 Active IV ASDIRECTED Sodium Chloride 0.9% [Saline Flush] Med 02/09/21 21:33 Active 10 ml FLUSH ASDIRECTED PRN Sodium Chloride 0.9% [Saline Flush] Med 02/09/21 23:15 Active 10 ml FLUSH BOLUS ED Antiemetic Medication Reflex [OM.PC] Stat Oth 02/09/21 21:33 Ordered Peripheral IV Insertion Adult [OM.PC] Stat Oth 02/09/21 21:33 Ordered Medication Orders Sodium Chloride (Normal Saline) 1,000 mls @ 125 mls/hr IV ASDIRECTED ELISEO Last Admin: 02/09/21 21:46 Dose: 125 mls/hr Documented by: NISHANT Sodium Chloride (Normal Saline) 100 mls @ 60 drops/min IV ASDIRECTED ELISEO Last Admin: 02/10/21 00:03 Dose: 60 drops/min Documented by: BEBETOIGIN Sodium Chloride (Sodium Chloride 0.9% 10 Ml Syringe) 10 ml FLUSH ASDIRECTED PRN PRN Reason: Keep Vein Open Last Admin: 02/09/21 21:46 Dose: 10 ml Documented by: NISHANT Sodium Chloride (Sodium Chloride 0.9% 10 Ml Syringe) 10 ml FLUSH BOLUS ELISEO Last Admin: 02/10/21 00:03 Dose: 10 ml Documented by: TIERA Labs: Laboratory Tests 02/09/21 02/09/21 02/09/21 Range/Units 21:00 21:23 21:23 WBC 6.13 (3.98-10.04) K/mm3 RBC 5.12 (3.98-5.22) M/mm3 Hgb 12.8 (11.2-15.7) gm/dl Hct 39.8 (34.1-44.9) % MCV 77.7 L (79.4-94.8) fl MCH 25.0 L (25.6-32.2) pg MCHC 32.2 (32.2-35.5) g/dl RDW Std Deviation 44.2 (36.4-46.3) fL Plt Count 260 (182-369) K/mm3 MPV 10.9 (9.4-12.3) fl Neut % (Auto) 55.2 (34.0-71.1) % Lymph % (Auto) 31.5 (19.3-51.7) % [place] % (Auto) 9.1 (4.7-12.5) % Eos % (Auto) 3.6 (0.7-5.8) Baso % (Auto) 0.3 (0.1-1.2) % Neut # (Auto) 3.38 (1.56-6.13) K/mm3 Lymph # (Auto) 1.93 (1.18-3.74) K/mm3 [place] # (Auto) 0.56 H (0.24-0.36) K/mm3 Eos # (Auto) 0.22 (0.04-0.36) K/mm3 Baso # (Auto) 0.02 (0.01-0.08) K/mm3 Sodium 142 (136-145) mEq/L Potassium 3.9 (3.5-5.1) mEq/L Chloride 106 (98-107) mEq/L Carbon Dioxide 26 (21-32) mEq/L Anion Gap 13.9 (5-15) BUN 16 (7-18) mg/dL Creatinine 0.8 (0.55-1.02) mg/dL Est Cr Clr Drug Dosing 2.81 mL/min Estimated GFR (MDRD) > 60 (>60) mL/min BUN/Creatinine Ratio 20.0 H (14-18) Glucose 115 H (70-99) mg/dL Calcium 9.1 (8.5-10.1) mg/dL Magnesium 2.2 (1.8-2.4) mg/dL Total Bilirubin 0.2 (0.2-1.0) mg/dL AST 25 (15-37) U/L ALT 81 H (14-59) U/L Alkaline Phosphatase 91 (46-116) U/L Troponin I < 0.017 (0.00-0.056) ng/mL Total Protein 7.5 (6.4-8.2) g/dl Albumin 3.5 (3.4-5.0) g/dl Globulin 4.0 gm/dL Albumin/Globulin Ratio 0.9 L (1-2) Urine Color Yellow (Yellow) Urine Appearance Clear (Clear) Urine pH 7.0 (5.0-8.0) Ur Specific [place] > or = 1.030 (1.005-1.030) Urine Protein Negative (Negative) Urine Glucose (UA) Negative (Negative) Urine Ketones Negative (Negative) Urine Occult Blood Negative (Negative) Urine Nitrite Positive H (Negative) Urine Bilirubin Negative (Negative) Urine Urobilinogen 0.2 (0.2-1.0) Ur Leukocyte Esterase 1+ H (Negative) Urine RBC 0-5 (0-5) /hpf Urine WBC 20-30 H (0-5) /hpf Ur Squamous Epith Cells 0-5 (0-5) /hpf Urine Bacteria Many H (FEW) /hpf Urine Mucus Few (FEW) /hpf Meds: Medications Generic Name Dose Route Start Last Admin Trade Name Freq PRN Reason Stop Dose Admin Sodium Chloride 1,000 mls @ 125 mls/hr 02/09/21 21:45 02/09/21 21:46 Normal Saline IV 125 mls/hr ASDIRECTED ELISEO Administration Sodium Chloride 100 mls @ 60 drops/min 02/09/21 23:15 02/10/21 00:03 Normal Saline IV 60 drops/min ASDIRECTED ELISEO Administration Sodium Chloride 10 ml 02/09/21 21:33 02/09/21 21:46 Sodium Chloride 0.9% 10 Ml Syringe FLUSH 10 ml ASDIRECTED PRN Administration Keep Vein Open Sodium Chloride 10 ml 02/09/21 23:15 02/10/21 00:03 Sodium Chloride 0.9% 10 Ml Syringe FLUSH 10 ml BOLUS ELISEO Administration Discontinued Medications Generic Name Dose Route Start Last Admin Trade Name Freq PRN Reason Stop Dose Admin Hydromorphone HCl 0.5 mg 02/09/21 22:49 02/09/21 22:56 Hydromorphone 0.5 Mg/0.5 Ml Syringe IVPUSH 02/09/21 22:50 0.5 mg ONETIME ONE Administration Iopamidol 50 ml 02/09/21 23:12 02/09/21 23:43 Iopamidol 612 Mg/Ml 50 Ml Sdv IVPUSH 02/09/21 23:13 Not Given ONETIME ONE Iopamidol 100 ml 02/09/21 23:12 02/09/21 23:43 Iopamidol 755 Mg/Ml 100 Ml Bottle IVPUSH 02/09/21 23:13 Not Given ONETIME ONE Ondansetron HCl 4 mg 02/09/21 21:33 02/09/21 21:46 Ondansetron 4 Mg/2 Ml Sdv IVPUSH 02/09/21 21:34 4 mg ONETIME ONE Administration - Re-Assessments/Exams Free Text/Narrative Re-Assessment/Exam: 02/09/21 21:53 I ordered an IV NS at 125mL/hr, zofran 4mg IV, labs, EKG, CT angio of her chest, and CT of her abdomen and pelvis. 02/09/21 23:05 Her CBC looks good. Her AST was elevated at 81. Her troponin is negative. Her UA shows a UTI. I am waiting in the CT of her chest and abdomen. 02/10/21 01:[address] of her chest shows extensive soft tissue emphysema involving the anterior chest wall most prominent at the level of the breasts bilaterally. Negative for pulmonary embolus or thoracic aortic dissection. Interval surgical repair of large hiatal hernia seen on the previous study. Opacified esophagus which appears moderately dilated. This may be due to partial obstruction at the level of the gastroesophageal junction where there is masslike soft tissue measuring 7.7 X 3.8 X 8cm. This likely is related to recent surgery/edema rather than a neoplastic mass given patient history of recent surgery. Bibasilar atelectasis left greater then right. Interval resolution of nodular left basilar opacity likely represented focal rounded atelectasis/pneumonia. Small right pleural effusion new compared to the prior study. The CT of her abdomen and pelvis shows dilated stomach with ingested gastric content and contrast. Filling defect at the GE junction may be partially obstructing given dilatation and contrast opacification of the visualized distal esophagus. Filling defect within the proximal duodenum/gastroduodenal junction new compared to 01/09/2020. A partial gastric outlet obstruction is suspected. Please correlate with upper endoscopy. Haziness in the midline mesenteric fat, unchanged compared to 01/09/2020 likely related to remote mesenteric adenitis/mesenteritis. Postoperative changes associated with the ventral abdominal wall and anterior chest wall. Small right pleural effusion and bibasilar atelectasis. I talked with Dr Sawant our general surgeon education adviser and he said these are changes you can see with surgery. I would be safe to discharge her home. I also will treat her UTI with keflex. She has a pleural effusion. That is what is causing her shortness of breath. Departure - Departure Time of Disposition: 01:35 Disposition: Home, Self-Care 01 Condition: Good Clinical Impression: Atypical chest pain UTI (urinary tract infection) Qualifiers: Urinary tract infection type: site unspecified Hematuria presence: without hematuria Qualified Code(s): N39.0 - Urinary tract infection, site not specified Abdominal pain Qualifiers: Abdominal location: left lower quadrant Qualified Code(s): R10.32 - Left lower quadrant pain Prescriptions: cephALEXin [Keflex] 500 mg PO BID #10 cap Referrals: PCP,None [Primary Care Provider] - Forms: ED Department Discharge Additional Instructions: Take the keflex 2 times per day for 5 days. Take your other medications as prescribed. Follow up with your doctor. Please return if you are worse. Sepsis Event Note (ED) - Evaluation Sepsis Screening Result: No Definite Risk - Focused Exam Vital Signs: Vital Signs Temp Pulse Resp BP Pulse Ox 02/09/21 21:20 97.9 F 67 16 180/89 H 93 L - My Orders Last 24 Hours: My Active Orders 02/09/21 21:33 Cardiac Monitoring [RC] . DIRECTED Sodium Chloride 0.9% [Saline Flush] 10 ml FLUSH ASDIRECTED PRN ED Antiemetic Medication Reflex [OM.PC] Stat Peripheral IV Insertion Adult [OM.PC] Stat 02/09/21 21:34 EKG Documentation Completion [RC] STAT Peripheral IV Care [RC] . DIRECTED Abdomen Pelvis w Cont [CT] Stat Ang Chest [CT] Stat 02/09/21 21:45 Sodium Chloride 0.9% [Normal Saline] 1,000 ml IV ASDIRECTED 02/09/21 23:15 Sodium Chloride 0.9% [Normal Saline] 100 ml IV ASDIRECTED Sodium Chloride 0.9% [Saline Flush] 10 ml FLUSH BOLUS - Assessment/Plan Last 24 Hours: My Active Orders 02/09/21 21:33 Cardiac Monitoring [RC] . DIRECTED Sodium Chloride 0.9% [Saline Flush] 10 ml FLUSH ASDIRECTED PRN ED Antiemetic Medication Reflex [OM.PC] Stat Peripheral IV Insertion Adult [OM.PC] Stat 02/09/21 21:34 EKG Documentation Completion [RC] STAT Peripheral IV Care [RC] . DIRECTED Abdomen Pelvis w Cont [CT] Stat Ang Chest [CT] Stat 02/09/21 21:45 Sodium Chloride 0.9% [Normal Saline] 1,000 ml IV ASDIRECTED 02/09/21 23:15 Sodium Chloride 0.9% [Normal Saline] 100 ml IV ASDIRECTED Sodium Chloride 0.9% [Saline Flush] 10 ml FLUSH BOLUS
[2021-02-09] MEDS ORDERED: HYDROmorphone 0.5 MG/0.5 ML Syringe IVPUSH ONE (22:49)
[2021-02-09] MEDS ORDERED: Iopamidol 755 Mg/ML 100 ML Bottle IVPUSH ONE (23:12)
[2021-02-09] MEDS ORDERED: Iopamidol 612 MG/ML 50 ML SDV IVPUSH ONE (23:12)
[2021-02-09] MEDS ORDERED: Sodium Chloride 0.9% 10 ML Syringe FLUSH SCH (23:15)
[2021-02-09] MEDS ORDERED: Sodium Chloride 0.9% 100 ML IV SCH (23:15)
[2021-02-10] MEDS ORDERED: Cephalexin 500 MG Cap PO ONE (01:27)
--- NOTE | 2021-02-10 07:44 | CT ---
CT chest Technique: Multiple axial sections were obtained from above the lung apices inferiorly through the lung bases. Intravenous contrast was utilized. Oral contrast has also been given. Findings: Small right-sided pleural effusion is seen. Thoracic aorta shows no aneurysm. No discrete filling defects are seen to indicate pulmonary emboli. Mediastinum and hilar regions show no adenopathy. Diffuse soft tissue air is noted within the anterior chest wall. Scattered areas of atelectasis are noted within both lung bases. Contrast is noted within the esophagus. Hiatal hernia has diminished from prior exam. Soft tissue density is noted at the gastroesophageal junction within the stomach measuring up to 6.4 cm. This presumably represents previous surgery. No additional abdominal abnormality is appreciated. Bone window settings were reviewed which show no acute osseous abnormality. Impression: 1. Small right-sided pleural effusion and bibasilar atelectasis. 2. Decreased size of hiatal hernia from prior exam. Contrast is noted within the esophagus. 3. Soft tissue density within the stomach at the gastroesophageal junction presumably postsurgical. 4. Subcutaneous air noted within the anterior chest wall. No pneumothorax is seen. Diagnostic code #3 I agree with preliminary report from [facility], finalized on 02/10/21, 1:39 AM CDT, code 1
--- NOTE | 2021-02-10 07:55 | CT ---
CT abdomen and pelvis Technique: Multiple axial sections were obtained from above the dome of the diaphragm inferiorly through the pubic symphysis. Intravenous and oral contrast was utilized. Reconstructed coronal and sagittal images were obtained. Comparison: Prior CT abdomen and pelvis study of 02/05/16. Findings: Dilated stomach is seen which contains contrast and food material. Soft tissue density is again noted at the gastroesophageal junction projecting into the stomach presumably postsurgical in etiology. Small right-sided pleural effusion and bibasilar atelectasis is noted. Liver contains no focal parenchymal abnormality. Spleen size is normal. Adrenal glands show no nodule. No abnormality is appreciated within the pancreas. Kidneys show symmetric contrast enhancement with no hydronephrosis or mass seen. Abdominal aorta shows mild atherosclerotic change without aneurysm. No retroperitoneal adenopathy is seen. No pelvic mass or adenopathy is seen. Delayed images show contrast within the ureters and within the bladder. Soft tissue air is noted within the anterior and right anterior abdominal wall which comes from the chest. Contrast is seen within nondilated small bowel. Diverticuli are seen within the descending and sigmoid colon without diverticulitis. Bone window settings were reviewed which show no acute osseous abnormality. Impression: 1. Dilated stomach most likely relating to recent ingestion. 2. Soft tissue density at the gastroesophageal junction most likely postsurgical. 3. Preliminary report discusses questionable finding within the duodenum which I believe is within normal limits. Contrast is seen within the small bowel. 4. Chest findings are again noted. Small amount of air noted within the anterior and right anterior abdominal wall is from the chest. 5. Nothing acute is seen on CT study of the abdomen and pelvis. Diagnostic code #3 I slightly disagree with preliminary report from [facility], finalized on 02/10/21, 1:56 AM CDT code 2
== END 2021-02-10 02:21 | disposition home or self-care (01) ==
LOC: JD.ED 21:04
DX: R07.89 Other chest pain (principal); N39.0 Urinary tract infection, site not specified; E66.9 Obesity, unspecified; Z68.30 Body mass index [BMI] 30.0-30.9, adult; Z88.5 Allergy status to narcotic agent
CPT/HCPCS: 36415; 71275; 74177; 80053; 81001; 83735; 84484; 85025; 93005; 96374; 96375; 99285; A9270; J1170; J2405; J7030; 93010; 99284

== ENCOUNTER 2021-03-02 15:10 | Emergency (ER) | payer MEDICAID ==
[2021-03-02] MEDS ORDERED: Sodium Chloride 0.9% 1,000 ML IV ONE (15:32)
[2021-03-02] MEDS ORDERED: Sodium Chloride 0.9% 10 ML Syringe FLUSH PRN (15:32)
[2021-03-02] MEDS ORDERED: Promethazine 25 MG in Sodium Chloride 0.9% 50 ML IV ONE (15:34)
--- NOTE | 2021-03-02 15:47 | EDM.PDOC ---
ED HPI GENERAL MEDICAL PROBLEM - General Chief Complaint: Gastrointestinal Problem Stated Complaint: UNABLE TO EAT OR DRINK/NAUSEA Time Seen by Provider: 03/02/21 15:15 Source of Information: Reports: Patient, RN Notes Reviewed History Limitations: Reports: No Limitations - History of Present Illness INITIAL COMMENTS - FREE TEXT/NARRATIVE: Patient is a 56-year-old female who presents to the ER for the evaluation of her nausea and vomiting. The patient had hiatal hernia repair at [facility] roughly 1 month ago. She also notes that she had an esophagus repair and stretching. She notes for the last week or so, she has been having some nausea and vomiting, she go to the walk-in clinic 2 days ago and got some Zofran. She notes that it seems to help a little bit, but then she goes right back to nausea and vomiting. States that she has not been able to keep much down for foods at all and she is having some abdominal cramping over her epigastrium due to this. States that when she has any sort of food in her stomach, a short time after she has to go to the bathroom and has yellow watery diarrhea stools. She does note some abdominal cramping when this happens as well. She has not been on any recent antibiotics. Has been in contact with her surgeon at [facility], and they suggested she come to the ER for IV fluids due to possible severe dehydration. She is denying any fevers or chills, cough or shortness of breath. Abdomen Pain Score (Numeric/FACES): 6 - Related Data Allergies Allergy/AdvReac Type Severity Reaction Status Date / Time codeine Allergy Severe Chest Verified 03/02/21 15:25 Tightness Home Meds: Home Meds FLUoxetine HCl [Fluoxetine HCl] 40 mg PO DAILY 10/19/20 [History] Ondansetron [Zofran ODT] 4 mg PO Q6H PRN 10/19/20 [History] Promethazine [Phenergan] 25 mg PO Q6H PRN #20 tab 03/02/21 [Rx] Past Medical History HEENT History: Reports: Allergic Rhinitis, Impaired Vision Other HEENT History: wears glasses Cardiovascular History: Reports: Other (See Below) Other Cardiovascular History: angiogram Respiratory History: Reports: Pneumonia, Recurrent Other Respiratory History: pneumonia Gastrointestinal History: Reports: GERD, Hiatal Hernia, Other (See Below) Other Gastrointestinal History: nausea and vomiting Genitourinary History: Reports: Pyelonephritis Other Genitourinary History: L flank pain ; hiatial hernia DATA SPECIALIST History: Reports: Other (See Below) Other DATA SPECIALIST History: atrophic vaginitis, fibroid, pelvic cramping Musculoskeletal History: Reports: None Neurological History: Reports: Headaches, Chronic Psychiatric History: Reports: Anxiety, Depression Endocrine/Metabolic History: Reports: Obesity/BMI 30+, Vitamin D Deficiency Hematologic History: Reports: None Immunologic History: Reports: None Oncologic (Cancer) History: Reports: None Dermatologic History: Reports: None - Infectious Disease History Infectious Disease History: Reports: Chicken Pox, Measles, Mumps - Past Surgical History Head Surgeries/Procedures: Reports: None HEENT Surgical History: Reports: Cataract Surgery, Tonsillectomy Cardiovascular Surgical History: Reports: Other (See Below) Other Cardiovascular Surgeries/Procedures: angiogram Respiratory Surgical History: Reports: None GI Surgical History: Reports: Appendectomy, Cholecystectomy, Colonoscopy, EGD, Philippe Fundoplication Other GI Surgeries/Procedures: surgery esophagus Female Surgical History: Reports: Hysterectomy, Other (See Below) Other Female Surgeries/Procedures: surgery on hiatial hernia in red level, 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 Endocrine Surgical History: Reports: None Neurological Surgical History: Reports: None Musculoskeletal Surgical History: Reports: None Oncologic Surgical History: Reports: None Dermatological Surgical History: Reports: None Social & Family History - Family History Family Medical History: No Pertinent Family History - Tobacco Use Tobacco Use Status *Q: Never Tobacco User - Caffeine Use Caffeine Use: Reports: None - Recreational Drug Use Recreational Drug Use: No - Living Situation & Occupation Living situation: Reports: , Alone Occupation: Unemployed ED ROS GENERAL - Review of Systems Review Of Systems: Comprehensive ROS is negative, except as noted in HPI. ED EXAM, GI/ABD - Physical Exam Exam: See Below Exam Limited By: No Limitations General Appearance: Alert, WD/WN, No Apparent Distress Respiratory/Chest: No Respiratory Distress, Lungs Clear, Normal Breath Sounds, No Accessory Muscle Use, Chest Non-Tender Cardiovascular: Normal Peripheral Pulses, Regular Rate, Rhythm, No Edema GI/Abdominal Exam: Soft, No Organomegaly, No Distention, No Mass, Tender (over epigastrium), Abnormal Bowel Sounds (hypoactive bowel tones x 4 quadrants), Other (There are several laparoscopic insertion points on the patient's abdomen, but do appear to be healing well. No erythema/drainage noted.) Extremities: Normal Inspection, Normal Capillary Refill Neurological: Alert, Oriented, Normal Cognition, No Motor/Sensory Deficits Psychiatric: Normal Affect, Normal Mood Skin Exam: Warm, Dry, Intact, Normal Color, No Rash Course - Vital Signs Last Recorded V/S: Last Vital Signs Temp 98.1 F 03/02/21 17:00 Pulse 76 03/02/21 17:00 Resp 16 03/02/21 17:00 BP 146/95 H 03/02/21 17:00 Pulse Ox 94 L 03/02/21 17:00 - Orders/Labs/Meds Orders: Active Orders 24 hr Category Date Time Status Peripheral IV Care [RC] . DIRECTED Care 03/02/21 15:32 Ordered LIPASE [CHEM] Stat Lab 03/02/21 16:49 Ordered Sodium Chloride 0.9% [Saline Flush] Med 03/02/21 15:32 Active 10 ml FLUSH ASDIRECTED PRN Peripheral IV Insertion Adult [OM.PC] Routine Oth 03/02/21 15:32 Ordered Medication Orders Sodium Chloride (Sodium Chloride 0.9% 10 Ml Syringe) 10 ml FLUSH ASDIRECTED PRN PRN Reason: Keep Vein Open Last Admin: 03/02/21 16:12 Dose: 10 ml Documented by: CARLOS Labs: Laboratory Tests 03/02/21 03/02/21 Range/Units 15:25 15:25 WBC 6.00 (3.98-10.04) K/mm3 RBC 5.45 H (3.98-5.22) M/mm3 Hgb 13.7 (11.2-15.7) gm/dl Hct 42.8 (34.1-44.9) % MCV 78.5 L (79.4-94.8) fl MCH 25.1 L (25.6-32.2) pg MCHC 32.0 L (32.2-35.5) g/dl RDW Std Deviation 44.4 (36.4-46.3) fL Plt Count 204 (182-369) K/mm3 MPV 11.0 (9.4-12.3) fl Neut % (Auto) 65.3 (34.0-71.1) % Lymph % (Auto) 22.7 (19.3-51.7) % [place] % (Auto) 8.2 (4.7-12.5) % Eos % (Auto) 2.8 (0.7-5.8) Baso % (Auto) 0.7 (0.1-1.2) % Neut # (Auto) 3.92 (1.56-6.13) K/mm3 Lymph # (Auto) 1.36 (1.18-3.74) K/mm3 [place] # (Auto) 0.49 H (0.24-0.36) K/mm3 Eos # (Auto) 0.17 (0.04-0.36) K/mm3 Baso # (Auto) 0.04 (0.01-0.08) K/mm3 Sodium 145 (136-145) mEq/L Potassium 3.5 (3.5-5.1) mEq/L Chloride 106 (98-107) mEq/L Carbon Dioxide 30 (21-32) mEq/L Anion Gap 12.5 (5-15) BUN 9 (7-18) mg/dL Creatinine 0.8 (0.55-1.02) mg/dL Est Cr Clr Drug Dosing 60.62 mL/min Estimated GFR (MDRD) > 60 (>60) mL/min BUN/Creatinine Ratio 11.3 L (14-18) Glucose 122 H (70-99) mg/dL Calcium 9.5 (8.5-10.1) mg/dL Magnesium 2.1 (1.8-2.4) mg/dL Total Bilirubin 0.4 (0.2-1.0) mg/dL AST 15 (15-37) U/L ALT 26 (14-59) U/L Alkaline Phosphatase 96 (46-116) U/L Total Protein 7.7 (6.4-8.2) g/dl Albumin 3.7 (3.4-5.0) g/dl Globulin 4.0 gm/dL Albumin/Globulin Ratio 0.9 L (1-2) Meds: Medications Generic Name Dose Route Start Last Admin Trade Name Freq PRN Reason Stop Dose Admin Sodium Chloride 10 ml 03/02/21 15:32 03/02/21 16:12 Sodium Chloride 0.9% 10 Ml Syringe FLUSH 10 ml ASDIRECTED PRN Administration Keep Vein Open Discontinued Medications Generic Name Dose Route Start Last Admin Trade Name Freq PRN Reason Stop Dose Admin Promethazine HCl 25 mg/ Sodium 51 mls @ 100 mls/hr 03/02/21 15:34 03/02/21 16:09 Chloride IV 03/02/21 16:04 100 mls/hr ONETIME ONE Administration Sodium Chloride 1,000 mls @ 999 mls/hr 03/02/21 15:32 03/02/21 16:09 Normal Saline IV 03/02/21 16:32 999 mls/hr ONETIME ONE Administration - Re-Assessments/Exams Free Text/Narrative Re-Assessment/Exam: 03/02/21 15:47 Patient presents to the ED for the evaluation of her nausea and vomiting. I do believe her epigastric discomfort is related to the nausea and vomiting that she has been having, in conjunction with not being able to eat. We will get IV started, get some basic labs IV fluids and nausea meds for initial management. 03/02/21 16:47 The patient labs have resulted, no acute abnormalities are appreciated. Patient about fdc down with her fluids, she will be assessed when fluids are just about done, and see if we can get her home with general recommendations. Departure - Departure Time of Disposition: 17:09 Disposition: Home, Self-Care 01 Condition: Good Clinical Impression: Nausea and vomiting in adult - Discharge Information *PRESCRIPTION DRUG MONITORING PROGRAM REVIEWED*: No *COPY OF PRESCRIPTION DRUG MONITORING REPORT IN PATIENT OBEY: No Prescriptions: Promethazine [Phenergan] 25 mg PO Q6H PRN #20 tab PRN Reason: Nausea Instructions: Nausea and Vomiting, Adult, [id number] Referrals: Daren Parra MD [Primary Care Provider] - Forms: ED Department Discharge Additional Instructions: You have been evaluated in the ED for nausea/vomiting/diarrhea. Laboratory evaluation demonstrated no focal abnormalities, you were given some IV fluids, and nausea meds in the ER and this seemed to help relieve most of your symptoms. Over the next 24-48 hours please try to limit diet to clear liquids and advance as tolerated to a bland diet to alleviate symptoms of nausea/vomiting/diarrhea. You were given a prescription for Phenergan tablets, you may take 1 tablet every 6 hours as needed for ongoing nausea management. This medication was electronically sent to the [facility] located on [place]. Please return to the ED if your symptoms should change or worsen. Sepsis Event Note (ED) - Evaluation Sepsis Screening Result: No Definite Risk - Focused Exam Vital Signs: Vital Signs Temp Pulse Resp BP Pulse Ox 03/02/21 17:00 98.1 F 76 16 146/95 H 94 L 03/02/21 15:29 97.3 F 92 20 129/76 94 L - My Orders Last 24 Hours: My Active Orders 03/02/21 15:32 Peripheral IV Care [RC] . DIRECTED Sodium Chloride 0.9% [Saline Flush] 10 ml FLUSH ASDIRECTED PRN Peripheral IV Insertion Adult [OM.PC] Routine 03/02/21 16:49 LIPASE [CHEM] Stat - Assessment/Plan Last 24 Hours: My Active Orders 03/02/21 15:32 Peripheral IV Care [RC] . DIRECTED Sodium Chloride 0.9% [Saline Flush] 10 ml FLUSH ASDIRECTED PRN Peripheral IV Insertion Adult [OM.PC] Routine 03/02/21 16:49 LIPASE [CHEM] Stat
[2021-03-02 17:03] VITALS: BP 146/95; PULSE 76
== END 2021-03-02 17:45 | disposition home or self-care (01) ==
LOC: JD.ED 15:10
DX: R11.2 Nausea with vomiting, unspecified (principal); E66.9 Obesity, unspecified; Z68.31 Body mass index [BMI] 31.0-31.9, adult; Z88.5 Allergy status to narcotic agent
CPT/HCPCS: 36415; 80053; 83690; 83735; 85025; 96365; 99284; J2550; J7030; 99283

== ENCOUNTER 2021-10-04 13:12 | Emergency (ER) | payer MEDICAID ==
[2021-10-04 13:39] VITALS: BP 137/106; PULSE 79
[2021-10-04] MEDS ORDERED: Ondansetron 4 MG/2 ML SDV IVPUSH ONE ×2 (13:40→15:52)
[2021-10-04] MEDS ORDERED: Sodium Chloride 0.9% 1,000 ML IV SCH (13:45)
[2021-10-04] MEDS ORDERED: HYDROmorphone 1 MG/ML Syringe IVPUSH ONE (14:00)
[2021-10-04] MEDS ORDERED: Iopamidol 612 MG/ML 100 ML Bottle IVPUSH ONE (14:42)
[2021-10-04] MEDS ORDERED: Diatrizoate Meglumine/Diatrizoate Sodium 37% 120 ML Bottle PO ONE (14:42)
[2021-10-04 15:03] LABS: CORONAVIRUS COVID-19 NAA NEGATIVE (NEGATIVE)
[2021-10-04] MEDS ORDERED: Metoclopramide 10 MG/2 ML SDV IVPUSH ONE (15:03)
[2021-10-04] MEDS ORDERED: HYDROmorphone 0.5 MG/0.5 ML Syringe IVPUSH ONE (15:09)
== END 2021-10-04 16:43 | disposition home or self-care (01) ==
LOC: JD.ED 13:12
DX: R10.10 Upper abdominal pain, unspecified (principal); R11.2 Nausea with vomiting, unspecified; R19.7 Diarrhea, unspecified; K21.9 Gastro-esophageal reflux disease without esophagitis; E66.9 Obesity, unspecified; Z68.31 Body mass index [BMI] 31.0-31.9, adult; Z88.5 Allergy status to narcotic agent; Z79.899 Other long term (current) drug therapy; Z20.822 Contact with and (suspected) exposure to COVID-19
CPT/HCPCS: 0241U; 36415; 74177; 80053; 83690; 83735; 85025; 86140; 96374; 96375; 96376; 99284; J1170; J2405; J2765; J7030; Q9963; Q9967

== ENCOUNTER 2021-12-03 07:19 | Day surgery (SDC) | payer MEDICAID ==
[~2021-12-03 07:19] MED LIST changes: +Sodium Chloride 0.9% 10 ML Syringe FLUSH SCH
[2021-12-03] MEDS ORDERED: Citric Acid/Sodium Citrate Solution 30 ML Cup PO ONE (08:00)
[2021-12-03] MEDS ORDERED: Famotidine 20 MG/2 ML SDV IVPUSH ONE (08:00)
[2021-12-03] MEDS ORDERED: Ondansetron 4 MG/2 ML SDV ONE (08:00)
[2021-12-03] MEDS ORDERED: Midazolam 1 MG/ML 2 ML SDV ONE (08:30)
[2021-12-03] MEDS ORDERED: fentaNYL 100 MCG/2 ML SDV ONE (08:30)
[2021-12-03] MEDS ORDERED: Propofol 200 MG/20 ML SDV ONE (08:31)
[2021-12-03] MEDS ORDERED: Lactated Ringers 1,000 ML ONE (09:11)
[2021-12-03 09:50] VITALS: BP 110/71; PULSE 72
== END 2021-12-03 09:57 | disposition home or self-care (01) ==
LOC: JD.SDS 07:19
PROVIDERS: ATTEND Surgery
DX: K29.50 Unspecified chronic gastritis without bleeding (principal); K44.9 Diaphragmatic hernia without obstruction or gangrene; R13.10 Dysphagia, unspecified; K20.90 Esophagitis, unspecified without bleeding; E03.9 Hypothyroidism, unspecified; Z98.890 Other specified postprocedural states; Z88.5 Allergy status to narcotic agent
CPT/HCPCS: 43239; A9270; J2405; J2704; J3490; J7120; 00731; J2250; J3010

== ENCOUNTER 2022-01-23 10:22 | Emergency (ER) | payer MEDICAID ==
[2022-01-23 11:05] VITALS: BP 139/71; PULSE 68
[2022-01-23] MEDS ORDERED: Sodium Chloride 0.9% 10 ML Syringe FLUSH PRN (11:39)
[2022-01-23] MEDS ORDERED: Ketorolac 30 MG/ML SDV IVPUSH ONE (11:39)
[2022-01-23] MEDS ORDERED: Sodium Chloride 0.9% 1,000 ML IV ONE (11:39)
[2022-01-23] MEDS ORDERED: Amoxicillin/Clavulanate K 875-125 MG Tab PO ONE (13:07)
== END 2022-01-23 13:35 | disposition home or self-care (01) ==
LOC: JD.ED 10:22
DX: K57.32 Diverticulitis of large intestine without perforation or abscess without bleeding (principal); E78.00 Pure hypercholesterolemia, unspecified; K21.9 Gastro-esophageal reflux disease without esophagitis; E03.9 Hypothyroidism, unspecified; Z88.5 Allergy status to narcotic agent; Z79.899 Other long term (current) drug therapy
CPT/HCPCS: 36415; 74176; 80053; 81003; 83735; 85025; 86140; 96374; 99284; A9270; J1885; J3490; J7030

== ENCOUNTER 2022-04-21 11:49 | Emergency (ER) | payer MEDICAID ==
[2022-04-21] MEDS ORDERED: Ondansetron 4 MG/2 ML SDV IVPUSH ONE (12:52)
[2022-04-21] MEDS ORDERED: HYDROmorphone 0.5 MG/0.5 ML Syringe IVPUSH ONE (12:52)
[2022-04-21] MEDS ORDERED: Sodium Chloride 0.9% 1,000 ML IV ONE (12:52)
[2022-04-21] MEDS ORDERED: Sodium Chloride 0.9% 10 ML Syringe FLUSH PRN (12:52)
[2022-04-21] MEDS ORDERED: Metoclopramide 10 MG/2 ML SDV IVPUSH ONE (13:56)
[2022-04-21] MEDS ORDERED: Sodium Chloride 0.9% 10 ML Syringe FLUSH ONE (14:18)
[2022-04-21] MEDS ORDERED: Iopamidol 612 MG/ML 100 ML Bottle IVPUSH ONE (14:18)
[2022-04-21] MEDS ORDERED: cefTRIAXone 1 GM in Sodium Chloride 0.9% 100 ML IV ONE (15:08)
[2022-04-21 16:14] VITALS: BP 128/87; PULSE 59
== END 2022-04-21 16:07 | disposition home or self-care (01) ==
LOC: JD.ED 11:49
DX: N39.0 Urinary tract infection, site not specified (principal); K57.32 Diverticulitis of large intestine without perforation or abscess without bleeding; E78.00 Pure hypercholesterolemia, unspecified; E03.9 Hypothyroidism, unspecified; Z88.5 Allergy status to narcotic agent; Z86.16 Personal history of COVID-19; Z20.822 Contact with and (suspected) exposure to COVID-19
CPT/HCPCS: 36415; 74177; 80053; 81001; 83735; 85025; 86140; 87086; 87635; 96361; 96365; 96375; 99284; J0696; J1170; J2405; J2765; J3490; J7030; Q9967; U0002

== ENCOUNTER 2022-06-17 07:24 | Emergency (ER) | payer OTHER, MEDICAID ==
[2022-06-17] MEDS ORDERED: Lactated Ringers 500 ML IV ONE (07:41)
[2022-06-17] MEDS ORDERED: Iopamidol 755 MG/ML 50 ML Bottle IVPUSH ONE (07:42)
[2022-06-17] MEDS ORDERED: Iopamidol 755 Mg/ML 100 ML Bottle IVPUSH ONE (07:42)
[2022-06-17] MEDS ORDERED: Lactated Ringers 1,000 ML IV SCH (07:45)
[2022-06-17 08:43] VITALS: PULSE 78
[2022-06-17 09:18] VITALS: BP 150/82
== END 2022-06-17 09:30 | disposition home or self-care (01) ==
LOC: JD.ED 07:24
DX: R10.9 Unspecified abdominal pain (principal); Z88.5 Allergy status to narcotic agent; Z79.899 Other long term (current) drug therapy; V49.40XA Driver injured in collision with unspecified motor vehicles in traffic accident, initial encounter; Y92.410 Unspecified street and highway as the place of occurrence of the external cause
CPT/HCPCS: 36415; 71260; 74177; 80053; 81003; 85025; 96360; 99284; J7120; Q9967; 99282

== ENCOUNTER 2022-08-24 20:56 | Emergency (ER) | payer MEDICAID ==
[2022-08-24 21:07] VITALS: BP 137/124; PULSE 114
[2022-08-24] MEDS ORDERED: HYDROmorphone 1 MG/ML Syringe IVPUSH STA (21:14)
[2022-08-24] MEDS ORDERED: Ondansetron 4 MG/2 ML SDV IVPUSH ONE (21:14)
[2022-08-24] MEDS ORDERED: Sodium Chloride 0.9% 1,000 ML IV SCH (21:15)
[2022-08-24 21:54] LABS: ESTIMATED GFR 100 mL/min (>60)
[2022-08-24] MEDS ORDERED: Iopamidol 612 MG/ML 100 ML Bottle IVPUSH ONE (21:57)
== END 2022-08-24 23:25 | disposition home or self-care (01) ==
LOC: JD.ED 20:56
DX: K57.32 Diverticulitis of large intestine without perforation or abscess without bleeding (principal); K21.9 Gastro-esophageal reflux disease without esophagitis; E66.9 Obesity, unspecified; Z68.30 Body mass index [BMI] 30.0-30.9, adult; Z88.5 Allergy status to narcotic agent; Z79.899 Other long term (current) drug therapy
CPT/HCPCS: 36415; 74177; 80053; 81001; 83690; 83735; 85007; 85027; 96361; 96374; 96375; 99284; J1170; J2405; J7030; Q9967

== ENCOUNTER 2022-10-09 07:51 | Day surgery (SDC) | payer MEDICAID ==
[~2022-10-09 07:51] MED LIST changes: -Lactated Ringers 1,000 ML IV SCH; +Lidocaine 1% 6 ML ONE; -Lidocaine 1%/Sod Bicarbonate in NS 8.4% 1 ML Syringe IDERM PRN; +Propofol 200 MG/20 ML SDV ONE
[2022-10-09] MEDS: Lidocaine 1%/Sod Bicarbonate in NS 8.4% 1 ML Syringe IDERM PRN (08:05)
[2022-10-09] MEDS: Lactated Ringers 1,000 ML IV SCH (08:05)
[2022-10-09] MEDS ORDERED: Propofol 200 MG/20 ML SDV ONE (09:59)
[2022-10-09] MEDS ORDERED: Ondansetron 4 MG/2 ML SDV IVPUSH PRN (10:31)
[2022-10-09] MEDS ORDERED: HYDROmorphone 0.5 MG/0.5 ML Syringe IVPUSH PRN (10:31)
[2022-10-09 11:21] VITALS: BP 125/72; PULSE 80
== END 2022-10-09 11:20 | disposition home or self-care (01) ==
LOC: JD.SDS 07:51
PROVIDERS: ATTEND Surgery
DX: D12.3 Benign neoplasm of transverse colon (principal); K57.32 Diverticulitis of large intestine without perforation or abscess without bleeding; K64.8 Other hemorrhoids; E78.5 Hyperlipidemia, unspecified; E66.9 Obesity, unspecified; G47.33 Obstructive sleep apnea (adult) (pediatric); E78.00 Pure hypercholesterolemia, unspecified; K21.9 Gastro-esophageal reflux disease without esophagitis; Z86.16 Personal history of COVID-19; Z79.899 Other long term (current) drug therapy; Z68.31 Body mass index [BMI] 31.0-31.9, adult; Z98.890 Other specified postprocedural states; Z88.5 Allergy status to narcotic agent
CPT/HCPCS: J2704; J3490; J7120

== ENCOUNTER 2022-12-11 09:22 | Inpatient (IN) | payer MEDICAID ==
[~2022-12-11 09:22] MED LIST changes: +Acetaminophen 325 MG Tab PO SCH; +Gabapentin 300 MG Cap PO SCH; +Ketorolac 30 MG/ML SDV ONE; +Lidocaine 1% 5 ML VIAL ONE; -Lidocaine 1% 6 ML ONE; +Ondansetron 4 MG/2 ML SDV ONE; +Rocuronium 50 MG/5 ML Vial ONE; -Sodium Chloride 0.9% 10 ML Syringe FLUSH PRN; -Sodium Chloride 0.9% 10 ML Syringe FLUSH SCH; +fentaNYL 100 MCG/2 ML SDV ONE; +metroNIDAZOLE/Normal Saline 500 MG in Premix Bag 1 BAG IV SCH
[2022-12-11] MEDS ORDERED: metroNIDAZOLE/Normal Saline 500 MG in Premix Bag 1 BAG IV ONE (09:44)
[2022-12-11] MEDS ORDERED: Gabapentin 300 MG Cap PO ONE (09:44)
[2022-12-11] MEDS ORDERED: Sodium Chloride 0.9% 10 ML Syringe FLUSH PRN (09:46)
[2022-12-11] MEDS ORDERED: Lidocaine 1%/Sod Bicarbonate in NS 8.4% 1 ML Syringe IDERM PRN (09:46)
[2022-12-11] MEDS ORDERED: Lactated Ringers 1,000 ML IV SCH (10:00)
[2022-12-11] MEDS: Acetaminophen 325 MG Tab PO ONE ×2 (10:08→10:53)
[2022-12-11] MEDS ORDERED: Bupivacaine 0.5%/EPINEPHrine 1:200,000 50 ML MDV ONE (10:41)
[2022-12-11] MEDS ORDERED: Lidocaine 1% with EPINEPHrine 1:100,000 20 ML MDV ONE ×2 (10:41→12:32)
[2022-12-11] MEDS ORDERED: Midazolam 1 MG/ML 2 ML SDV ONE (10:51)
[2022-12-11] MEDS ORDERED: Dexamethasone 4 MG/ML 5 ML MDV ONE (12:01)
[2022-12-11] MEDS ORDERED: Propofol 200 MG/20 ML SDV ONE ×2 (12:04→13:49)
[2022-12-11] MEDS ORDERED: ceFAZolin 2 GM Vial ONE (12:11)
[2022-12-11] MEDS ORDERED: ePHEDrine 50 MG/ML SDV ONE (12:22)
[2022-12-11] MEDS ORDERED: Scopolamine 1.5 MG Transdermal Patch TOP ONE (12:35)
[2022-12-11] MEDS ORDERED: Rocuronium 50 MG/5 ML Vial ONE (12:53)
[2022-12-11] MEDS ORDERED: fentaNYL 100 MCG/2 ML SDV ONE ×2 (12:54→14:40)
[2022-12-11] MEDS ORDERED: Metoprolol Tartrate 5 MG/5 ML SDV ONE (13:47)
[2022-12-11] MEDS ORDERED: Phenylephrine 1% 10 MG/ML SDV ONE (14:41)
[2022-12-11] MEDS: HYDROmorphone 0.5 MG/0.5 ML Syringe IVPUSH PRN (16:29)
[2022-12-11] MEDS: Ondansetron 4 MG Tab.DIS PO SCH ×2 (18:14→22:28)
[2022-12-11] MEDS: Dextrose 5%-0.45% NaCl 1,000 ML IV SCH (18:27)
[2022-12-11] MEDS: Ibuprofen 600 MG Tab PO SCH ×2 (19:24→21:13)
[2022-12-11] MEDS: Acetaminophen 325 MG Tab PO SCH ×2 (19:25→21:11)
[2022-12-11] MEDS: Metoclopramide 10 MG/2 ML SDV IVPUSH PRN (20:30)
[2022-12-11] MEDS ORDERED: Sodium Chloride 0.9% 10 ML Syringe FLUSH SCH (21:00)
[2022-12-11] MEDS: Aluminum Hydroxide/Magnesium Hydroxide/Simethicone Susp 30 ML Cup PO PRN (23:34)
[2022-12-12] MEDS: Acetaminophen 325 MG Tab PO SCH ×3 (00:09→09:16)
[2022-12-12] MEDS: Ibuprofen 600 MG Tab PO SCH ×2 (04:49→11:15)
[2022-12-12] MEDS: Ondansetron 4 MG Tab.DIS PO SCH ×4 (04:50→21:55)
[2022-12-12] MEDS: Dextrose 5%-0.45% NaCl 1,000 ML IV SCH ×2 (07:26→21:55)
[2022-12-12] MEDS: Heparin Sodium 5,000 Units/ML Vial SUBCUT SCH ×2 (08:21→15:26)
[2022-12-12] MEDS: FLUoxetine 20 MG Cap PO SCH (08:22)
[2022-12-12] MEDS: Metoclopramide 10 MG/2 ML SDV IVPUSH PRN (09:07)
[2022-12-12] MEDS: HYDROmorphone 0.5 MG/0.5 ML Syringe IVPUSH PRN (09:21)
[2022-12-12] MEDS: Gabapentin 100 MG Cap PO SCH ×3 (11:00→20:24)
[2022-12-12] MEDS: Acetaminophen 325 MG Supp RECTAL SCH ×4 (11:01→21:55)
[2022-12-13] MEDS: Morphine 15 MG Tab PO PRN ×2 (00:31→08:35)
[2022-12-13] MEDS: Metoclopramide 10 MG/2 ML SDV IVPUSH PRN (00:31)
[2022-12-13] MEDS: Heparin Sodium 5,000 Units/ML Vial SUBCUT SCH ×3 (00:32→16:33)
[2022-12-13] MEDS: Acetaminophen 325 MG Supp RECTAL SCH ×6 (02:37→22:09)
[2022-12-13] MEDS: Ondansetron 4 MG Tab.DIS PO SCH ×4 (03:14→22:10)
[2022-12-13] MEDS: Gabapentin 100 MG Cap PO SCH ×3 (08:27→22:10)
[2022-12-13] MEDS: FLUoxetine 20 MG Cap PO SCH (08:27)
[2022-12-13] MEDS ORDERED: Acetaminophen 650 MG Supp RECTAL ONE (11:00)
[2022-12-13] MEDS: Dextrose 5%-0.45% NaCl 1,000 ML IV SCH ×2 (11:01→22:10)
[2022-12-13] MEDS: Promethazine 12.5 MG in Sodium Chloride 0.9% 50 ML IV PRN (12:56)
[2022-12-14] MEDS: Heparin Sodium 5,000 Units/ML Vial SUBCUT SCH ×4 (00:11→23:49)
[2022-12-14] MEDS: Promethazine 12.5 MG in Sodium Chloride 0.9% 50 ML IV PRN (02:43)
[2022-12-14] MEDS: Acetaminophen 325 MG Supp RECTAL SCH ×6 (02:44→23:48)
[2022-12-14] MEDS: Ondansetron 4 MG Tab.DIS PO SCH ×4 (04:14→23:15)
[2022-12-14] MEDS: Morphine 15 MG Tab PO PRN ×2 (06:14→20:39)
[2022-12-14] MEDS: Gabapentin 100 MG Cap PO SCH ×3 (09:39→20:39)
[2022-12-14] MEDS: FLUoxetine 20 MG Cap PO SCH (09:39)
[2022-12-14] MEDS: Dextrose 5%-0.45% NaCl 1,000 ML IV SCH ×2 (11:01→23:45)
[2022-12-14] MEDS: HYDROmorphone 0.5 MG/0.5 ML Syringe IVPUSH PRN (23:54)
[2022-12-15] MEDS: Ondansetron 4 MG Tab.DIS PO SCH ×4 (03:39→23:01)
[2022-12-15] MEDS: Acetaminophen 325 MG Supp RECTAL SCH ×6 (03:40→23:02)
[2022-12-15] MEDS: Heparin Sodium 5,000 Units/ML Vial SUBCUT SCH ×3 (09:08→23:01)
[2022-12-15] MEDS: FLUoxetine 20 MG Cap PO SCH (09:08)
[2022-12-15] MEDS: Gabapentin 100 MG Cap PO SCH ×3 (09:08→20:10)
[2022-12-15] MEDS ORDERED: Potassium Chloride 10 MEQ in Premix Bag 1 BAG IV ONE ×2 (10:00→11:00)
[2022-12-15] MEDS: HYDROmorphone 0.5 MG/0.5 ML Syringe IVPUSH PRN ×2 (14:39→23:01)
[2022-12-15] MEDS ORDERED: Sodium Chloride 0.9% 100 ML ONE (14:58)
[2022-12-15] MEDS: Aluminum Hydroxide/Magnesium Hydroxide/Simethicone Susp 30 ML Cup PO PRN (20:09)
[2022-12-16] MEDS: Acetaminophen 325 MG Supp RECTAL SCH ×3 (04:18→09:36)
[2022-12-16] MEDS: Ondansetron 4 MG Tab.DIS PO SCH ×2 (04:21→09:35)
[2022-12-16 05:46] VITALS: BP 121/70; PULSE 73
[2022-12-16] MEDS: HYDROmorphone 0.5 MG/0.5 ML Syringe IVPUSH PRN ×2 (07:29→11:58)
[2022-12-16] MEDS: Morphine 15 MG Tab PO PRN ×2 (07:30→11:58)
[2022-12-16] MEDS: Heparin Sodium 5,000 Units/ML Vial SUBCUT SCH (07:30)
[2022-12-16] MEDS: FLUoxetine 20 MG Cap PO SCH (09:33)
[2022-12-16] MEDS: Gabapentin 100 MG Cap PO SCH (09:33)
== END 2022-12-16 13:16 | disposition home or self-care (01) | DRG 331 ==
LOC: JD.MS 09:22
PROVIDERS: ADMIT Surgery; ATTEND Surgery
PROC: 0DBN4ZZ Excision of Sigmoid Colon, Percutaneous Endoscopic Approach (ICD-10-PCS; principal; 2022-12-11)
DX: K57.32 Diverticulitis of large intestine without perforation or abscess without bleeding (principal); I10 Essential (primary) hypertension; J30.9 Allergic rhinitis, unspecified; K21.9 Gastro-esophageal reflux disease without esophagitis; E78.5 Hyperlipidemia, unspecified; E78.00 Pure hypercholesterolemia, unspecified; E66.9 Obesity, unspecified; G47.33 Obstructive sleep apnea (adult) (pediatric); K44.9 Diaphragmatic hernia without obstruction or gangrene; Z98.890 Other specified postprocedural states; Z86.16 Personal history of COVID-19; Z79.899 Other long term (current) drug therapy; Z90.710 Acquired absence of both cervix and uterus; Z90.722 Acquired absence of ovaries, bilateral; Z88.5 Allergy status to narcotic agent; Z90.89 Acquired absence of other organs; Z90.49 Acquired absence of other specified parts of digestive tract; Z68.31 Body mass index [BMI] 31.0-31.9, adult
CPT/HCPCS: 00840; 36415; 80053; 84484; 85025; 93005; 94761; A9270-GY; J0690; J1100; J1170; J1644; J1885; J2250; J2370; J2405; J2550; J2704; J2765; J3010; J3480; J3490; J7042; J7120

== ENCOUNTER 2022-12-19 19:03 | Inpatient (IN) | payer MEDICAID ==
[2022-12-19] MEDS ORDERED: Ondansetron 4 MG/2 ML SDV IVPUSH ONE (19:20)
[2022-12-19] MEDS ORDERED: Morphine 4 MG/ML Syringe IVPUSH ONE ×2 (19:21→20:53)
[2022-12-19] MEDS ORDERED: Sodium Chloride 0.9% 1,000 ML IV SCH (19:30)
[2022-12-19] MEDS ORDERED: Iopamidol 612 MG/ML 100 ML Bottle IVPUSH ONE (20:29)
[2022-12-19] MEDS ORDERED: Sodium Chloride 0.9% 10 ML SDV FLUSH ONE (20:29)
[2022-12-19] MEDS ORDERED: HYDROmorphone 1 MG/ML Syringe IVPUSH ONE (21:31)
[2022-12-19] MEDS ORDERED: fentaNYL 100 MCG/2 ML SDV IVPUSH ONE (22:33)
[2022-12-19] MEDS ORDERED: Piperacillin/Tazobactam 4.5 GM in Sodium Chloride 0.9% 100 ML IV ONE (22:35)
[2022-12-19] MEDS ORDERED: fentaNYL 100 MCG/2 ML SDV ONE (23:10)
[2022-12-19] MEDS ORDERED: Lidocaine 1% 2 ML ONE (23:10)
[2022-12-19] MEDS ORDERED: Rocuronium 50 MG/5 ML Vial ONE (23:10)
[2022-12-19] MEDS ORDERED: Propofol 200 MG/20 ML SDV ONE (23:11)
[2022-12-19] MEDS ORDERED: Bupivacaine 0.5%/EPINEPHrine 1:200,000 50 ML MDV ONE (23:34)
[2022-12-19] MEDS ORDERED: Lidocaine 1% with EPINEPHrine 1:100,000 20 ML MDV ONE (23:35)
[2022-12-20] MEDS ORDERED: HYDROmorphone 0.5 MG/0.5 ML Syringe ONE (00:44)
[2022-12-20] MEDS ORDERED: Phenylephrine 1% 10 MG/ML SDV ONE (01:21)
[2022-12-20] MEDS ORDERED: fentaNYL 100 MCG/2 ML SDV ONE (03:27)
[2022-12-20] MEDS ORDERED: Sodium Chloride 0.9% 100 ML ONE (03:45)
[2022-12-20] MEDS ORDERED: Piperacillin/Tazobactam 4.5 GM Vial ONE (03:45)
[2022-12-20] MEDS ORDERED: Piperacillin/Tazobactam 4.5 GM in Sodium Chloride 0.9% 100 ML IV ONE (03:48)
[2022-12-20] MEDS ORDERED: Sugammadex Sodium 200 MG/2 ML VIAL ONE (04:13)
[2022-12-20] MEDS ORDERED: HYDROmorphone 0.5 MG/0.5 ML Syringe IVPUSH PRN (05:17)
[2022-12-20] MEDS ORDERED: fentaNYL 100 MCG/2 ML SDV IVPUSH PRN (05:17)
[2022-12-20] MEDS ORDERED: Ondansetron 4 MG/2 ML SDV IVPUSH PRN (05:17)
[2022-12-20] MEDS ORDERED: Lactated Ringers 1,000 ML IV ONE (05:47)
[2022-12-20] MEDS: Ketorolac 30 MG/ML SDV IVPUSH SCH ×3 (06:16→18:08)
[2022-12-20] MEDS: Promethazine 12.5 MG in Sodium Chloride 0.9% 50 ML IV SCH ×3 (06:42→18:08)
[2022-12-20] MEDS: D5 1/2 NS w/ 20 mEq/L KCl 1,000 ML IV SCH ×3 (06:56→22:08)
[2022-12-20] MEDS: Potassium Chloride 10 MEQ in Premix Bag 1 BAG IV SCH ×2 (06:57→07:59)
[2022-12-20] MEDS: Heparin Sodium 5,000 Units/ML Vial SUBCUT SCH ×2 (08:13→14:59)
[2022-12-20] MEDS: Pantoprazole 40 MG Vial IVPUSH SCH (08:13)
[2022-12-20] MEDS ORDERED: Lactated Ringers 500 ML IV ONE (10:37)
[2022-12-20] MEDS: Piperacillin/Tazobactam 4.5 GM in Sodium Chloride 0.9% 100 ML IV SCH ×2 (11:07→20:02)
[2022-12-20] MEDS: HYDROmorphone 0.5 MG/0.5 ML Syringe IVPUSH PRN ×2 (11:47→14:59)
[2022-12-20] MEDS ORDERED: Magnesium Sulfate/Water 4 GM in Premix Bag 1 BAG IV ONE (13:00)
[2022-12-20] MEDS ORDERED: fentaNYL 100 MCG/2 ML SDV IVPUSH SCH (15:19)
[2022-12-20] MEDS: fentaNYL 100 MCG/2 ML SDV IVPUSH PRN ×3 (18:09→22:09)
[2022-12-21] MEDS: Promethazine 6.25 MG in Sodium Chloride 0.9% 50 ML IV SCH ×5 (00:02→23:56)
[2022-12-21] MEDS: Heparin Sodium 5,000 Units/ML Vial SUBCUT SCH ×4 (00:04→23:38)
[2022-12-21] MEDS: Ketorolac 30 MG/ML SDV IVPUSH SCH ×5 (00:05→23:37)
[2022-12-21] MEDS: Piperacillin/Tazobactam 4.5 GM in Sodium Chloride 0.9% 100 ML IV SCH ×3 (04:01→19:55)
[2022-12-21] MEDS: fentaNYL 100 MCG/2 ML SDV IVPUSH PRN ×7 (05:14→22:03)
[2022-12-21] MEDS: D5 1/2 NS w/ 20 mEq/L KCl 1,000 ML IV SCH ×3 (06:09→22:10)
[2022-12-21] MEDS: Pantoprazole 40 MG Vial IVPUSH SCH (08:09)
[2022-12-21] MEDS ORDERED: Calcium Chloride 10% 1 GM/10 ML Syringe IVPUSH ONE (09:48)
[2022-12-21] MEDS ORDERED: Benzocaine/Cetylpyridinium/Menthol Lozenge MUCMEM PRN (10:09)
[2022-12-21] MEDS: HYDROmorphone 0.5 MG/0.5 ML Syringe IVPUSH PRN (14:17)
[2022-12-21] MEDS ORDERED: fentaNYL 100 MCG/2 ML SDV IVPUSH ONE (15:24)
[2022-12-22] MEDS: fentaNYL 100 MCG/2 ML SDV IVPUSH PRN ×2 (01:45→09:12)
[2022-12-22] MEDS: Piperacillin/Tazobactam 4.5 GM in Sodium Chloride 0.9% 100 ML IV SCH ×3 (03:50→19:50)
[2022-12-22] MEDS: Promethazine 6.25 MG in Sodium Chloride 0.9% 50 ML IV SCH ×3 (05:36→17:28)
[2022-12-22] MEDS: Ketorolac 30 MG/ML SDV IVPUSH SCH ×3 (05:38→17:27)
[2022-12-22] MEDS: D5 1/2 NS w/ 20 mEq/L KCl 1,000 ML IV SCH ×3 (06:09→22:44)
[2022-12-22] MEDS: Heparin Sodium 5,000 Units/ML Vial SUBCUT SCH ×2 (08:09→15:37)
[2022-12-22] MEDS: Pantoprazole 40 MG Vial IVPUSH SCH (08:09)
[2022-12-22] MEDS ORDERED: Calcium Gluconate 10% 1 GM/10 ML SDV IV ONE (08:30)
[2022-12-22] MEDS ORDERED: Sodium Phosphate 20 MMOLE in Sodium Chloride 0.9% 250 ML IV ONE (09:00)
[2022-12-22] MEDS: Acetaminophen/oxyCODONE 325-5 MG Tab PO PRN ×3 (09:12→20:15)
[2022-12-22] MEDS: Gabapentin 100 MG Cap PO SCH ×3 (09:13→20:15)
[2022-12-22] MEDS ORDERED: traZODone 50 MG Tab PO PRN (21:00)
[2022-12-23] MEDS: Ketorolac 30 MG/ML SDV IVPUSH SCH ×5 (00:04→23:54)
[2022-12-23] MEDS: Heparin Sodium 5,000 Units/ML Vial SUBCUT SCH ×4 (00:05→23:54)
[2022-12-23] MEDS: Promethazine 6.25 MG in Sodium Chloride 0.9% 50 ML IV SCH ×2 (00:07→06:15)
[2022-12-23] MEDS: Piperacillin/Tazobactam 4.5 GM in Sodium Chloride 0.9% 100 ML IV SCH ×3 (04:28→21:28)
[2022-12-23] MEDS: D5 1/2 NS w/ 20 mEq/L KCl 1,000 ML IV SCH (06:44)
[2022-12-23] MEDS ORDERED: Potassium Chloride 20 MEQ Tab.ER PO ONE (07:47)
[2022-12-23] MEDS: Pantoprazole 40 MG Vial IVPUSH SCH (08:48)
[2022-12-23] MEDS: Gabapentin 100 MG Cap PO SCH ×3 (08:56→21:28)
[2022-12-23] MEDS ORDERED: FLUoxetine 20 MG Cap PO SCH ×2 (09:00)
[2022-12-23] MEDS: Acetaminophen/oxyCODONE 325-5 MG Tab PO PRN ×2 (14:10→20:23)
[2022-12-24] MEDS: HYDROmorphone 0.5 MG/0.5 ML Syringe IVPUSH PRN (03:17)
[2022-12-24] MEDS: Piperacillin/Tazobactam 4.5 GM in Sodium Chloride 0.9% 100 ML IV SCH ×3 (03:30→21:38)
[2022-12-24] MEDS: Ketorolac 30 MG/ML SDV IVPUSH SCH ×3 (05:40→17:25)
[2022-12-24] MEDS ORDERED: Oxybutynin 5 MG Tab PO PRN (07:26)
[2022-12-24] MEDS: Heparin Sodium 5,000 Units/ML Vial SUBCUT SCH ×2 (09:30→16:58)
[2022-12-24] MEDS: Gabapentin 100 MG Cap PO SCH ×3 (09:30→21:38)
[2022-12-24] MEDS: Pantoprazole 40 MG Vial IVPUSH SCH (09:30)
[2022-12-24] MEDS: Acetaminophen/oxyCODONE 325-5 MG Tab PO PRN ×2 (11:51→21:37)
[2022-12-24] MEDS ORDERED: Promethazine 6.25 MG in Sodium Chloride 0.9% 50 ML IV PRN (22:00)
[2022-12-25] MEDS: Ketorolac 30 MG/ML SDV IVPUSH SCH ×2 (00:40→06:03)
[2022-12-25] MEDS: Heparin Sodium 5,000 Units/ML Vial SUBCUT SCH ×2 (00:40→08:11)
[2022-12-25 03:57] VITALS: BP 117/66
[2022-12-25] MEDS: Piperacillin/Tazobactam 4.5 GM in Sodium Chloride 0.9% 100 ML IV SCH (06:02)
[2022-12-25] MEDS: Pantoprazole 40 MG Vial IVPUSH SCH (08:11)
[2022-12-25] MEDS: Gabapentin 100 MG Cap PO SCH (08:11)
[2022-12-25] MEDS: Promethazine 6.25 MG in Sodium Chloride 0.9% 50 ML IV SCH (08:50)
[2022-12-25 09:53] VITALS: PULSE 77
[2022-12-25] MEDS ORDERED: Potassium Chloride 20 MEQ Tab.ER PO ONE (10:30)
== END 2022-12-25 12:26 | disposition home or self-care (01) | DRG 330 ==
LOC: JD.ED 19:03 → JD.SDS 22:38 → JD.ICU 12-20 05:49
PROVIDERS: ADMIT Surgery; ATTEND Surgery
PROC: 0D1L0Z4 Bypass Transverse Colon to Cutaneous, Open Approach (ICD-10-PCS; principal; 2022-12-20)
PROC: 0DTM0ZZ Resection of Descending Colon, Open Approach (ICD-10-PCS; 2022-12-20)
DX: K55.049 Acute infarction of large intestine, extent unspecified (principal); Q43.8 Other specified congenital malformations of intestine; I95.9 Hypotension, unspecified; K55.9 Vascular disorder of intestine, unspecified; E78.00 Pure hypercholesterolemia, unspecified; K21.9 Gastro-esophageal reflux disease without esophagitis; N32.89 Other specified disorders of bladder; K44.9 Diaphragmatic hernia without obstruction or gangrene; E66.9 Obesity, unspecified; Z98.890 Other specified postprocedural states; Z90.89 Acquired absence of other organs; Z98.49 Cataract extraction status, unspecified eye; Z68.33 Body mass index [BMI] 33.0-33.9, adult; Z88.5 Allergy status to narcotic agent; Z90.49 Acquired absence of other specified parts of digestive tract; Z90.710 Acquired absence of both cervix and uterus; Z56.0 Unemployment, unspecified; Z53.31 Laparoscopic surgical procedure converted to open procedure
CPT/HCPCS: 00790; 36415; 71045; 71045-26; 74019; 74019-26; 74177; 74177-26; 80048; 80053; 81001; 83605; 83735; 84100; 84484; 85018; 85025; 87040; 87077; 87086; 87088; 87154; 87186; 93005; 96361; 96365; 96375; 96376; 97116-GP; 97162-GP; 97166-GO; 99284; 99285-25; A9270-GY; C9113; J0612; J1170; J1644; J1885; J2270; J2370; J2405; J2543; J2550; J2704; J3010; J3475; J3480; J3490; J7030; J7050; J7120; Q9967

== ENCOUNTER 2022-12-27 08:19 | Emergency (ER) | payer MEDICAID ==
[2022-12-27] MEDS ORDERED: Sodium Chloride 0.9% 10 ML Syringe FLUSH PRN (08:52)
[2022-12-27 08:54] VITALS: BP 129/73; PULSE 98
[2022-12-27] MEDS ORDERED: Lactated Ringers 1,000 ML IV SCH (09:30)
[2022-12-27] MEDS ORDERED: Ondansetron 4 MG/2 ML SDV IVPUSH ONE (09:33)
[2022-12-27] MEDS ORDERED: Famotidine 20 MG/2 ML SDV IVPUSH ONE (09:33)
[2022-12-27] MEDS ORDERED: Pantoprazole 40 MG Vial IVPUSH ONE (09:33)
[2022-12-27] MEDS ORDERED: Sucralfate Suspension 1 GM/10 ML Cup PO ONE (09:34)
[2022-12-27] MEDS ORDERED: Promethazine 12.5 MG in Sodium Chloride 0.9% 50 ML IV ONE ×4 (11:36)
[2022-12-27] MEDS: Potassium Chloride 10 MEQ in Premix Bag 1 BAG IV SCH ×4 (12:12→15:23)
== END 2022-12-27 16:32 | disposition home or self-care (01) ==
LOC: JD.ED 08:19
DX: K29.70 Gastritis, unspecified, without bleeding (principal); E78.00 Pure hypercholesterolemia, unspecified; K21.9 Gastro-esophageal reflux disease without esophagitis; E66.9 Obesity, unspecified; Z68.29 Body mass index [BMI] 29.0-29.9, adult; Z88.5 Allergy status to narcotic agent; Z86.16 Personal history of COVID-19
CPT/HCPCS: 36415; 80053; 81001; 82271; 83690; 83735; 85025; 86140; 93005; 96361; 96365; 96366; 96367; 96375; 96376; 99284; A9270; C9113; J2405; J2550; J3480; J3490; J7120; 93010

== ENCOUNTER 2022-12-29 10:31 | Emergency (ER) | payer MEDICAID ==
[2022-12-29] MEDS ORDERED: Sodium Chloride 0.9% 1,000 ML IV ONE ×2 (11:20→12:21)
[2022-12-29] MEDS ORDERED: Sodium Chloride 0.9% 10 ML Syringe FLUSH PRN (11:20)
[2022-12-29] MEDS ORDERED: Ondansetron 4 MG/2 ML SDV IVPUSH ONE (11:30)
[2022-12-29] MEDS ORDERED: Loperamide 2 MG Cap PO ONE (12:21)
[2022-12-29] MEDS ORDERED: Potassium Chloride 20 MEQ Tab.ER PO ONE (12:25)
[2022-12-29] MEDS ORDERED: Metoclopramide 10 MG/2 ML SDV IVPUSH ONE (12:35)
[2022-12-29] MEDS ORDERED: Ketorolac 30 MG/ML SDV IVPUSH ONE (13:40)
[2022-12-29 15:05] VITALS: BP 120/79; PULSE 96
== END 2022-12-29 15:04 | disposition home or self-care (01) ==
LOC: JD.ED 10:31
DX: R11.2 Nausea with vomiting, unspecified (principal); R19.7 Diarrhea, unspecified; Z88.5 Allergy status to narcotic agent
CPT/HCPCS: 36415; 80053; 83605; 85007; 85027; 85610; 86140; 87040; 96361; 96374; 96375; 99284; A9270; J1885; J2405; J2765; J3490; J7030

== ENCOUNTER 2022-12-29 20:38 | Inpatient (IN) | payer MEDICAID ==
[2022-12-29] MEDS ORDERED: Iopamidol 612 MG/ML 100 ML Bottle IVPUSH ONE (21:54)
[2022-12-29] MEDS ORDERED: Ondansetron 4 MG/2 ML SDV IVPUSH ONE (22:10)
[2022-12-29] MEDS ORDERED: Famotidine 20 MG/2 ML SDV IVPUSH ONE (22:10)
[2022-12-29] MEDS ORDERED: Pantoprazole 40 MG Vial IVPUSH ONE (22:10)
[2022-12-29] MEDS ORDERED: Metoclopramide 10 MG/2 ML SDV IVPUSH ONE ×2 (22:37→23:00)
[2022-12-30] MEDS ORDERED: Ondansetron 4 MG/2 ML SDV IVPUSH PRN (03:54)
[2022-12-30] MEDS ORDERED: Lactated Ringers 1,000 ML IV SCH (04:00)
[2022-12-30] MEDS ORDERED: Promethazine 25 MG in Sodium Chloride 0.9% 50 ML IV ONE (05:01)
[2022-12-30] MEDS ORDERED: Famotidine 20 MG/2 ML SDV IVPUSH SCH (09:00)
[2022-12-30 11:27] VITALS: BP 144/81; PULSE 100
[2022-12-30] MEDS ORDERED: Promethazine 25 MG in Sodium Chloride 0.9% 50 ML IV PRN (12:27)
== END 2022-12-30 14:35 | disposition home or self-care (01) | DRG 392 ==
LOC: JD.ED 20:38 → JD.MS 12-30 03:54
PROVIDERS: ADMIT Specialist; ATTEND Specialist
DX: K91.0 Vomiting following gastrointestinal surgery (principal); Y83.8 Other surgical procedures as the cause of abnormal reaction of the patient, or of later complication, without mention of misadventure at the time of the procedure; E78.00 Pure hypercholesterolemia, unspecified; K21.9 Gastro-esophageal reflux disease without esophagitis; G47.30 Sleep apnea, unspecified; E66.9 Obesity, unspecified; R19.7 Diarrhea, unspecified; Z98.890 Other specified postprocedural states; Z98.49 Cataract extraction status, unspecified eye; Z93.3 Colostomy status; Z90.89 Acquired absence of other organs; Z90.49 Acquired absence of other specified parts of digestive tract; Z90.710 Acquired absence of both cervix and uterus; Z88.5 Allergy status to narcotic agent; Z68.29 Body mass index [BMI] 29.0-29.9, adult
CPT/HCPCS: 36415; 74177; 74177-26; 80053; 81001; 83605; 83690; 84484; 85007; 85025; 85027; 85610; 86140; 87040; 93005; 93010; 96361; 96374; 96375; 99284; 99284-25; 99285; 99285-25; A9270-GY; C9113; J1885; J2405; J2550; J2765; J3490; J7030; J7120; Q9967

== ENCOUNTER 2023-01-28 19:51 | Emergency (ER) | payer MEDICAID ==
[2023-01-28] MEDS ORDERED: Ondansetron 4 MG/2 ML SDV IVPUSH ONE (20:19)
[2023-01-28] MEDS ORDERED: Sodium Chloride 0.9% 10 ML Syringe FLUSH PRN (20:19)
[2023-01-28] MEDS ORDERED: HYDROmorphone 1 MG/ML Syringe IVPUSH ONE (20:22)
[2023-01-28] MEDS ORDERED: Sodium Chloride 0.9% 1,000 ML IV SCH (20:30)
[2023-01-28 20:41] LABS: BASOPHILS ABSOLUTE AUTO 0.02 K/mm3 (0.01-0.08); BASOPHILS PERCENT AUTO 0.5 % (0.1-1.2); EOSINOPHILS PERCENT AUTO 2.3 (0.7-5.8); HEMATOCRIT 32.1 % (34.1-44.9); HEMOGLOBIN 9.7 gm/dl (11.2-15.7); IMMATURE GRAN ABSOLUTE AUTO 0.01 K/mm3 (0.00-0.10); IMMATURE GRAN PERCENT AUTO 0.2 % (<=1.0); LYMPHOCYTES PERCENT AUTO 34.6 % (19.3-51.7); MEAN CORPUSCULAR HEMOGLOBIN 23.6 pg (25.6-32.2); MEAN CORPUSCULAR HGB CONC 30.2 g/dl (32.2-35.5); MEAN CORPUSCULAR VOLUME 78.1 fl (79.4-94.8); MEAN PLATELET VOLUME 10.8 fl (9.4-12.3); MONOCYTES ABSOLUTE AUTO 0.32 K/mm3 (0.24-0.36); MONOCYTES PERCENT AUTO 7.4 % (4.7-12.5); NEUTROPHILS ABSOLUTE AUTO 2.38 K/mm3 (1.56-6.13); PLATELET COUNT,PLT 298 K/mm3 (182-369); RED BLOOD CELL COUNT 4.11 M/mm3 (3.98-5.22); WHITE BLOOD CELL COUNT,WBC 4.33 K/mm3 (3.98-10.04)
[2023-01-28] MEDS ORDERED: Iopamidol 612 MG/ML 100 ML Bottle IVPUSH ONE (20:54)
[2023-01-28 20:59] LABS: A/G RATIO 0.8 (1-2); ALANINE AMINOTRANSFERASE,ALT 36 U/L (14-59); ALBUMIN 3.2 g/dl (3.4-5.0); ALKALINE PHOSPHATASE 111 U/L (46-116); ANION GAP 11.2 (5-15); ASPARTATE AMNIOTRANSFERASE,AST 24 U/L (15-37); BILIRUBIN TOTAL 0.3 mg/dL (0.2-1.0); BLOOD UREA NITROGEN,BUN 12 mg/dL (7-18); BUN/CREATININE RATIO 17.1 (14-18); C-REACTIVE PROTEIN <0.2 mg/dL (<1.0); CALCIUM 8.9 mg/dL (8.5-10.1); CARBON DIOXIDE,CO2 26 mEq/L (21-32); CHLORIDE,CL 108 mEq/L (98-107); CREATININE 0.7 mg/dL (0.55-1.02); EST CRCL DRUG DOSING (CG) 67.59 mL/min; ESTIMATED GFR 99 mL/min (>60); GLUCOSE RANDOM 107 mg/dL (70-99); LIPASE 89 U/L (73-393); POTASSIUM,K 3.2 mEq/L (3.5-5.1); PROTEIN TOTAL,TP 7.4 g/dl (6.4-8.2); SODIUM,NA 142 mEq/L (136-145)
[2023-01-28] MEDS ORDERED: Metoclopramide 10 MG/2 ML SDV IVPUSH ONE (21:45)
[2023-01-28] MEDS ORDERED: HYDROmorphone 0.5 MG/0.5 ML Syringe IVPUSH ONE (21:46)
[2023-01-28 21:58] LABS: APPEARANCE,URINE CLEAR (Clear); BILIRUBIN,URINE NEGATIVE (Negative); COLOR,URINE YELLOW (Yellow); GLUCOSE,URINE NEGATIVE (Negative); KETONES,URINE NEGATIVE (Negative); LEUKOCYTE ESTERASE,URINE 1+ (Negative); NITRITE,URINE POSITIVE (Negative); OCCULT BLOOD,URINE NEGATIVE (Negative); PROTEIN,URINE NEGATIVE (Negative); UROBILINOGEN,URINE 0.2 (0.2-1.0)
[2023-01-28 22:04] LABS: BACTERIA,URINE MANY /hpf (FEW); MUCUS,URINE FEW /hpf (FEW); RBC,URINE 0-5 /hpf (0-5)
[2023-01-28] MEDS ORDERED: cefTRIAXone 1 GM in Sodium Chloride 0.9% 100 ML IV ONE (22:40)
[2023-01-28 23:48] VITALS: BP 114/71; PULSE 81
== END 2023-01-28 23:52 | disposition home or self-care (01) ==
LOC: JD.ED 19:51
DX: K57.32 Diverticulitis of large intestine without perforation or abscess without bleeding (principal); N39.0 Urinary tract infection, site not specified; K21.9 Gastro-esophageal reflux disease without esophagitis; E66.9 Obesity, unspecified; Z68.29 Body mass index [BMI] 29.0-29.9, adult; Z88.5 Allergy status to narcotic agent; Z79.899 Other long term (current) drug therapy; Z86.16 Personal history of COVID-19
CPT/HCPCS: 36415; 74177; 80053; 81001; 83690; 85025; 86140; 87086; 87088; 87186; 96361; 96365; 96375; 99284; J0696; J1170; J2405; J2765; J3490; J7030; Q9967

== ENCOUNTER 2023-03-01 16:10 | Emergency (ER) | payer MEDICAID ==
[2023-03-01 16:54] LABS: BASOPHILS ABSOLUTE AUTO 0.01 K/mm3 (0.01-0.08); BASOPHILS PERCENT AUTO 0.2 % (0.1-1.2); EOSINOPHILS ABSOLUTE AUTO 0.06 K/mm3 (0.04-0.36); EOSINOPHILS PERCENT AUTO 1.1 (0.7-5.8); HEMATOCRIT 33.9 % (34.1-44.9); HEMOGLOBIN 10.3 gm/dl (11.2-15.7); IMMATURE GRAN ABSOLUTE AUTO 0.01 K/mm3 (0.00-0.10); IMMATURE GRAN PERCENT AUTO 0.2 % (<=1.0); LYMPHOCYTES ABSOLUTE AUTO 0.97 K/mm3 (1.18-3.74); LYMPHOCYTES PERCENT AUTO 18.2 % (19.3-51.7); MEAN CORPUSCULAR HEMOGLOBIN 21.3 pg (25.6-32.2); MEAN CORPUSCULAR HGB CONC 30.4 g/dl (32.2-35.5); MEAN CORPUSCULAR VOLUME 70.2 fl (79.4-94.8); MEAN PLATELET VOLUME 10.7 fl (9.4-12.3); MONOCYTES ABSOLUTE AUTO 0.31 K/mm3 (0.24-0.36); MONOCYTES PERCENT AUTO 5.8 % (4.7-12.5); NEUTROPHILS ABSOLUTE AUTO 3.96 K/mm3 (1.56-6.13); NEUTROPHILS PERCENT AUTO 74.5 % (34.0-71.1); PLATELET COUNT,PLT 298 K/mm3 (182-369); RED BLOOD CELL COUNT 4.83 M/mm3 (3.98-5.22); WHITE BLOOD CELL COUNT,WBC 5.32 K/mm3 (3.98-10.04)
[2023-03-01 17:04] LABS: A/G RATIO 0.9 (1-2); ALANINE AMINOTRANSFERASE,ALT 30 U/L (14-59); ALBUMIN 3.5 g/dl (3.4-5.0); ALKALINE PHOSPHATASE 100 U/L (46-116); ANION GAP 11.6 (5-15); ASPARTATE AMNIOTRANSFERASE,AST 18 U/L (15-37); BILIRUBIN TOTAL 0.4 mg/dL (0.2-1.0); BLOOD UREA NITROGEN,BUN 11 mg/dL (7-18); BUN/CREATININE RATIO 15.7 (14-18); C-REACTIVE PROTEIN <0.2 mg/dL (<1.0); CALCIUM 9.1 mg/dL (8.5-10.1); CARBON DIOXIDE,CO2 25 mEq/L (21-32); CHLORIDE,CL 106 mEq/L (98-107); CREATININE 0.7 mg/dL (0.55-1.02); EST CRCL DRUG DOSING (CG) 67.59 mL/min; ESTIMATED GFR 99 mL/min (>60); GLUCOSE RANDOM 117 mg/dL (70-99); POTASSIUM,K 3.6 mEq/L (3.5-5.1); PROTEIN TOTAL,TP 7.5 g/dl (6.4-8.2); SODIUM,NA 139 mEq/L (136-145)
[2023-03-01 17:15] LABS: SLIDE REVIEW ABNORMAL SMEAR
[2023-03-01] MEDS ORDERED: Iopamidol 612 MG/ML 30 ML SDV IVPUSH ONE ×3 (17:18)
[2023-03-01 17:22] LABS: APPEARANCE,URINE CLEAR (Clear); BILIRUBIN,URINE NEGATIVE (Negative); COLOR,URINE YELLOW (Yellow); GLUCOSE,URINE NEGATIVE (Negative); KETONES,URINE NEGATIVE (Negative); LEUKOCYTE ESTERASE,URINE NEGATIVE (Negative); NITRITE,URINE NEGATIVE (Negative); OCCULT BLOOD,URINE NEGATIVE (Negative); PH,URINE 6.5 (5.0-8.0); PROTEIN,URINE NEGATIVE (Negative); UROBILINOGEN,URINE 0.2 (0.2-1.0)
[2023-03-01] MEDS ORDERED: Ondansetron 4 MG/2 ML SDV IVPUSH ONE (17:24)
[2023-03-01 17:28] LABS: RBC,URINE 0-5 /hpf (0-5); WBC,URINE 0-5 /hpf (0-5)
[2023-03-01] MEDS: Sodium Chloride 0.9% 10 ML Syringe FLUSH PRN ×2 (17:28→18:33)
[2023-03-01 17:29] LABS: BACTERIA,URINE FEW /hpf (FEW); MUCUS,URINE MODERATE /hpf (FEW); SQUAMOUS EPITHELIAL CELLS,UR 0-5 /hpf (0-5)
[2023-03-01] MEDS ORDERED: HYDROmorphone 0.5 MG/0.5 ML Syringe IVPUSH ONE (18:10)
[2023-03-01] MEDS ORDERED: Promethazine 25 MG Tab PO ONE (18:37)
[2023-03-01 19:13] VITALS: BP 134/83; PULSE 72
== END 2023-03-01 19:10 | disposition home or self-care (01) ==
LOC: JD.ED 16:10
DX: K52.9 Noninfective gastroenteritis and colitis, unspecified (principal); K21.9 Gastro-esophageal reflux disease without esophagitis; Z86.16 Personal history of COVID-19; Z88.5 Allergy status to narcotic agent; Z79.899 Other long term (current) drug therapy
CPT/HCPCS: 36415; 74177; 80053; 81001; 85025; 86140; 96374; 96375; 99284; J1170; J2405; J3490; Q9967

== ENCOUNTER 2023-04-16 19:26 | Emergency (ER) | payer MEDICAID ==
[2023-04-16] MEDS ORDERED: HYDROmorphone 0.5 MG/0.5 ML Syringe IVPUSH ONE (20:14)
[2023-04-16] MEDS ORDERED: Ondansetron 4 MG/2 ML SDV IVPUSH ONE (20:14)
[2023-04-16] MEDS ORDERED: Sodium Chloride 0.9% 1,000 ML IV ONE (20:14)
[2023-04-16 20:35] LABS: BASOPHILS ABSOLUTE AUTO 0.02 K/mm3 (0.01-0.08); BASOPHILS PERCENT AUTO 0.4 % (0.1-1.2); EOSINOPHILS PERCENT AUTO 2.1 (0.7-5.8); HEMATOCRIT 32.9 % (34.1-44.9); HEMOGLOBIN 9.8 gm/dl (11.2-15.7); LYMPHOCYTES ABSOLUTE AUTO 1.63 K/mm3 (1.18-3.74); LYMPHOCYTES PERCENT AUTO 34.6 % (19.3-51.7); MEAN CORPUSCULAR HEMOGLOBIN 19.4 pg (25.6-32.2); MEAN CORPUSCULAR HGB CONC 29.8 g/dl (32.2-35.5); MONOCYTES ABSOLUTE AUTO 0.49 K/mm3 (0.24-0.36); MONOCYTES PERCENT AUTO 10.4 % (4.7-12.5); NEUTROPHILS ABSOLUTE AUTO 2.47 K/mm3 (1.56-6.13); NEUTROPHILS PERCENT AUTO 52.5 % (34.0-71.1); PLATELET COUNT,PLT 256 K/mm3 (182-369); RED BLOOD CELL COUNT 5.06 M/mm3 (3.98-5.22); WHITE BLOOD CELL COUNT,WBC 4.71 K/mm3 (3.98-10.04)
[2023-04-16 20:44] LABS: APPEARANCE,URINE CLEAR (Clear); BILIRUBIN,URINE NEGATIVE (Negative); COLOR,URINE YELLOW (Yellow); GLUCOSE,URINE NEGATIVE (Negative); KETONES,URINE NEGATIVE (Negative); LEUKOCYTE ESTERASE,URINE 1+ (Negative); NITRITE,URINE NEGATIVE (Negative); OCCULT BLOOD,URINE NEGATIVE (Negative); PROTEIN,URINE TRACE (Negative); UROBILINOGEN,URINE 0.2 (0.2-1.0)
[2023-04-16 20:54] LABS: BACTERIA,URINE FEW /hpf (FEW); MUCUS,URINE MANY /hpf (FEW); RBC,URINE 0-5 /hpf (0-5)
[2023-04-16] MEDS ORDERED: Iopamidol 612 MG/ML 100 ML Bottle IVPUSH ONE (20:55)
[2023-04-16 20:56] LABS: A/G RATIO 0.8 (1-2); ALANINE AMINOTRANSFERASE,ALT 15 U/L (14-59); ALBUMIN 3.3 g/dl (3.4-5.0); ALKALINE PHOSPHATASE 93 U/L (46-116); ANION GAP 12.2 (5-15); ASPARTATE AMNIOTRANSFERASE,AST 11 U/L (15-37); BILIRUBIN TOTAL 0.3 mg/dL (0.2-1.0); BLOOD UREA NITROGEN,BUN 10 mg/dL (7-18); BUN/CREATININE RATIO 16.7 (14-18); C-REACTIVE PROTEIN <0.2 mg/dL (<1.0); CALCIUM 9.1 mg/dL (8.5-10.1); CARBON DIOXIDE,CO2 25 mEq/L (21-32); CHLORIDE,CL 106 mEq/L (98-107); CREATININE 0.6 mg/dL (0.55-1.02); EST CRCL DRUG DOSING (CG) 78.86 mL/min; ESTIMATED GFR 103 mL/min (>60); GLUCOSE RANDOM 98 mg/dL (70-99); POTASSIUM,K 3.2 mEq/L (3.5-5.1); PROTEIN TOTAL,TP 7.5 g/dl (6.4-8.2); SODIUM,NA 140 mEq/L (136-145)
[2023-04-16] MEDS ORDERED: Potassium Chloride 20 MEQ Tab.ER PO ONE (21:13)
[2023-04-16 21:34] LABS: SLIDE REVIEW ABNORMAL SMEAR
[2023-04-16 23:33] VITALS: BP 123/77; PULSE 54
== END 2023-04-16 22:00 | disposition home or self-care (01) ==
LOC: JD.ED 19:26
DX: K59.00 Constipation, unspecified (principal); K21.9 Gastro-esophageal reflux disease without esophagitis; E66.9 Obesity, unspecified; Z68.29 Body mass index [BMI] 29.0-29.9, adult; Z86.16 Personal history of COVID-19; Z88.5 Allergy status to narcotic agent
CPT/HCPCS: 36415; 74177; 80053; 81001; 83735; 85025; 86140; 96361; 96374; 96375; 99284; A9270; J1170; J2405; J7030; Q9967

== ENCOUNTER 2023-04-20 17:16 | Emergency (ER) | payer MEDICAID ==
[2023-04-20] MEDS ORDERED: Sodium Chloride 0.9% 10 ML Syringe FLUSH PRN (17:34)
[2023-04-20] MEDS ORDERED: Ondansetron 4 MG/2 ML SDV IVPUSH ONE (17:34)
[2023-04-20] MEDS ORDERED: Sodium Chloride 0.9% 1,000 ML IV SCH (17:45)
[2023-04-20 17:50] LABS: BASOPHILS ABSOLUTE AUTO 0.02 K/mm3 (0.01-0.08); BASOPHILS PERCENT AUTO 0.4 % (0.1-1.2); EOSINOPHILS ABSOLUTE AUTO 0.09 K/mm3 (0.04-0.36); EOSINOPHILS PERCENT AUTO 1.8 (0.7-5.8); HEMATOCRIT 33.9 % (34.1-44.9); HEMOGLOBIN 10.2 gm/dl (11.2-15.7); IMMATURE GRAN ABSOLUTE AUTO 0.01 K/mm3 (0.00-0.10); IMMATURE GRAN PERCENT AUTO 0.2 % (<=1.0); LYMPHOCYTES PERCENT AUTO 23.9 % (19.3-51.7); MEAN CORPUSCULAR HEMOGLOBIN 19.7 pg (25.6-32.2); MEAN CORPUSCULAR HGB CONC 30.1 g/dl (32.2-35.5); MEAN CORPUSCULAR VOLUME 65.3 fl (79.4-94.8); MONOCYTES ABSOLUTE AUTO 0.36 K/mm3 (0.24-0.36); MONOCYTES PERCENT AUTO 7.2 % (4.7-12.5); NEUTROPHILS ABSOLUTE AUTO 3.35 K/mm3 (1.56-6.13); NEUTROPHILS PERCENT AUTO 66.5 % (34.0-71.1); PLATELET COUNT,PLT 282 K/mm3 (182-369); RED BLOOD CELL COUNT 5.19 M/mm3 (3.98-5.22); WHITE BLOOD CELL COUNT,WBC 5.03 K/mm3 (3.98-10.04)
[2023-04-20 18:11] LABS: A/G RATIO 0.9 (1-2); ALANINE AMINOTRANSFERASE,ALT 16 U/L (14-59); ALBUMIN 3.6 g/dl (3.4-5.0); ALKALINE PHOSPHATASE 103 U/L (46-116); ANION GAP 13.4 (5-15); ASPARTATE AMNIOTRANSFERASE,AST 12 U/L (15-37); BILIRUBIN TOTAL 0.2 mg/dL (0.2-1.0); BLOOD UREA NITROGEN,BUN 11 mg/dL (7-18); BUN/CREATININE RATIO 13.8 (14-18); C-REACTIVE PROTEIN <0.2 mg/dL (<1.0); CALCIUM 9.2 mg/dL (8.5-10.1); CARBON DIOXIDE,CO2 27 mEq/L (21-32); CHLORIDE,CL 105 mEq/L (98-107); CREATININE 0.8 mg/dL (0.55-1.02); EST CRCL DRUG DOSING (CG) 59.15 mL/min; ESTIMATED GFR 84 mL/min (>60); GLUCOSE RANDOM 93 mg/dL (70-99); LIPASE 30 U/L (73-393); MAGNESIUM 2.2 mg/dL (1.8-2.4); POTASSIUM,K 3.4 mEq/L (3.5-5.1); PROTEIN TOTAL,TP 7.7 g/dl (6.4-8.2); SODIUM,NA 142 mEq/L (136-145)
[2023-04-20 18:13] LABS: SLIDE REVIEW ABNORMAL SMEAR
[2023-04-20] MEDS ORDERED: Dicyclomine 10 MG Cap PO ONE (18:24)
[2023-04-20 18:25] LABS: APPEARANCE,URINE CLEAR (Clear); BILIRUBIN,URINE NEGATIVE (Negative); COLOR,URINE YELLOW (Yellow); GLUCOSE,URINE NEGATIVE (Negative); KETONES,URINE NEGATIVE (Negative); LEUKOCYTE ESTERASE,URINE 2+ (Negative); NITRITE,URINE NEGATIVE (Negative); OCCULT BLOOD,URINE NEGATIVE (Negative); PH,URINE 6.5 (5.0-8.0); PROTEIN,URINE 1+ (Negative); UROBILINOGEN,URINE 0.2 (0.2-1.0)
[2023-04-20 18:32] LABS: RBC,URINE 0-5 /hpf (0-5); SQUAMOUS EPITHELIAL CELLS,UR 0-5 /hpf (0-5); WBC,URINE 50-75 /hpf (0-5)
[2023-04-20 18:33] LABS: BACTERIA,URINE MODERATE /hpf (FEW); HYALINE CASTS,URINE 0-5 /lpf (0-5); MUCUS,URINE MANY /hpf (FEW)
[2023-04-20] MEDS ORDERED: Nitrofurantoin Monohydrate/Macrocrystalline 100 MG Cap PO ONE (20:44)
[2023-04-20 21:10] VITALS: BP 134/68; PULSE 59
== END 2023-04-20 21:05 | disposition home or self-care (01) ==
LOC: JD.ED 17:16
DX: R10.10 Upper abdominal pain, unspecified (principal); E66.9 Obesity, unspecified; K21.9 Gastro-esophageal reflux disease without esophagitis; Z68.29 Body mass index [BMI] 29.0-29.9, adult; Z93.3 Colostomy status; Z86.16 Personal history of COVID-19; Z79.899 Other long term (current) drug therapy; Z88.5 Allergy status to narcotic agent
CPT/HCPCS: 36415; 74019; 80053; 81001; 83690; 83735; 85025; 86140; 87086; 87088; 87186; 96374; 99284; A9270; J2405; J3490; J7030; 93010

== ENCOUNTER 2023-06-01 14:24 | Emergency (ER) | payer MEDICAID ==
[2023-06-01 20:43] VITALS: BP 117/54; PULSE 88
== END 2023-06-01 16:15 | disposition home or self-care (01) ==
LOC: JD.ED 14:24
DX: K94.09 Other complications of colostomy (principal); K21.9 Gastro-esophageal reflux disease without esophagitis; E66.9 Obesity, unspecified; Z79.899 Other long term (current) drug therapy; Z88.5 Allergy status to narcotic agent; Z86.16 Personal history of COVID-19; Z90.49 Acquired absence of other specified parts of digestive tract; Z90.710 Acquired absence of both cervix and uterus; Z68.29 Body mass index [BMI] 29.0-29.9, adult
CPT/HCPCS: 74019; 74019-26; 99283; 99284

== ENCOUNTER 2024-01-13 15:16 | Emergency (ER) | payer MEDICAID ==
[2024-01-13 16:07] LABS: APPEARANCE,URINE CLEAR (Clear); BILIRUBIN,URINE 1+ (Negative); COLOR,URINE YELLOW (Yellow); GLUCOSE,URINE NEGATIVE (Negative); KETONES,URINE NEGATIVE (Negative); LEUKOCYTE ESTERASE,URINE NEGATIVE (Negative); NITRITE,URINE NEGATIVE (Negative); OCCULT BLOOD,URINE TRACE-INTACT (Negative); PROTEIN,URINE 2+ (Negative); UROBILINOGEN,URINE 0.2 (0.2-1.0)
[2024-01-13] MEDS: Sodium Chloride 0.9% 1,000 ML IV STA (16:24)
[2024-01-13] MEDS: Sodium Chloride 0.9% 10 ML Syringe FLUSH PRN (16:24)
[2024-01-13] MEDS: Ondansetron 4 MG/2 ML SDV IVPUSH ONE (16:24)
[2024-01-13] MEDS: HYDROmorphone 0.5 MG/0.5 ML Syringe IVPUSH ONE (16:24)
[2024-01-13 16:26] LABS: BACTERIA,URINE FEW /hpf (FEW); MUCUS,URINE MODERATE /hpf (FEW); RBC,URINE 0-5 /hpf (0-5); WBC,URINE 0-5 /hpf (0-5)
[2024-01-13 16:28] LABS: BASOPHILS PERCENT AUTO 0.2 % (0.0-1.0); EOSINOPHILS PERCENT AUTO 0.7 % (0.0-6.0); HEMATOCRIT 44.3 % (37.0-47.0); HEMOGLOBIN 14.6 gm/dl (12.0-16.0); IMMATURE GRAN ABSOLUTE AUTO 0.02 K/mm3 (0.00-0.05); IMMATURE GRAN PERCENT AUTO 0.4 % (0.0-0.4); LYMPHOCYTES ABSOLUTE AUTO 0.4 K/mm3 (1.0-4.8); LYMPHOCYTES PERCENT AUTO 7.8 % (24.0-44.0); MEAN CORPUSCULAR HEMOGLOBIN 27.3 pg (28.0-32.0); MEAN CORPUSCULAR VOLUME 82.8 fl (83.0-99.0); MEAN PLATELET VOLUME 10.8 fl (9.4-12.3); MONOCYTES ABSOLUTE AUTO 0.3 K/mm3 (0.0-0.8); MONOCYTES PERCENT AUTO 6.1 % (0.0-8.0); NEUTROPHILS ABSOLUTE AUTO 4.6 K/mm3 (1.8-7.7); NEUTROPHILS PERCENT AUTO 84.8 % (41.0-71.0); PLATELET COUNT,PLT 163 K/mm3 (150-400); RED BLOOD CELL COUNT 5.35 M/mm3 (4.10-5.30); WHITE BLOOD CELL COUNT,WBC 5.39 K/mm3 (3.9-11.3)
[2024-01-13 16:40] LABS: A/G RATIO 0.8 (1-2); ALBUMIN 3.2 g/dl (3.4-5.0); ANION GAP 15.3 (5-15); BILIRUBIN TOTAL 0.4 mg/dL (0.2-1.0); BUN/CREATININE RATIO 22.2 (14-18); C-REACTIVE PROTEIN 2.83 mg/dL (<0.30); CALCIUM 8.9 mg/dL (8.5-10.1); CREATININE 0.9 mg/dL (0.55-1.02); EST CRCL DRUG DOSING (CG) 52.57 mL/min; POTASSIUM,K 3.3 mEq/L (3.5-5.1); PROTEIN TOTAL,TP 7.3 g/dl (6.4-8.2)
[2024-01-13] MEDS: Iopamidol 612 MG/ML 100 ML Bottle IVPUSH ONE (17:06)
[2024-01-13] MEDS: Metoclopramide 10 MG/2 ML SDV IVPUSH ONE (17:21)
[2024-01-13] MEDS ORDERED: Dicyclomine 20 MG/2 ML SDV IM ONE (17:39)
[2024-01-13] MEDS: Dicyclomine 10 MG Cap PO ONE (17:48)
[2024-01-13 18:41] VITALS: BP 115/90; PULSE 87
== END 2024-01-13 18:28 | disposition home or self-care (01) ==
LOC: JD.ED 15:16
DX: A08.4 Viral intestinal infection, unspecified (principal); K21.9 Gastro-esophageal reflux disease without esophagitis; E66.9 Obesity, unspecified; Z68.29 Body mass index [BMI] 29.0-29.9, adult; Z88.5 Allergy status to narcotic agent; Z79.899 Other long term (current) drug therapy; Z86.16 Personal history of COVID-19; Z90.49 Acquired absence of other specified parts of digestive tract; Z90.710 Acquired absence of both cervix and uterus
CPT/HCPCS: 36415; 74177; 80053; 81001; 83690; 85025; 86140; 87045; 87046; 87493; 87899; 96361; 96374; 96375; 99284; A9270; J1170; J2405; J2765; J3490; J7030; Q9967

== ENCOUNTER 2024-12-18 18:28 | Emergency (ER) | payer MEDICAID ==
[2024-12-18] MEDS: Ondansetron 4 MG/2 ML SDV IVPUSH ONE ×2 (19:01→20:24)
[2024-12-18] MEDS: Sodium Chloride 0.9% 1,000 ML IV ONE (19:01)
[2024-12-18] MEDS: Famotidine 20 MG/2 ML SDV IVPUSH ONE (19:01)
[2024-12-18 19:03] LABS: BASOPHILS PERCENT AUTO 0.6 % (0.0-1.0); EOSINOPHILS ABSOLUTE AUTO 0.1 K/mm3 (0.0-0.4); EOSINOPHILS PERCENT AUTO 1.4 % (0.0-6.0); HEMATOCRIT 45.1 % (37.0-47.0); HEMOGLOBIN 14.8 gm/dl (12.0-16.0); IMMATURE GRAN ABSOLUTE AUTO 0.03 K/mm3 (0.00-0.05); IMMATURE GRAN PERCENT AUTO 0.5 % (0.0-0.4); LYMPHOCYTES ABSOLUTE AUTO 1.8 K/mm3 (1.0-4.8); LYMPHOCYTES PERCENT AUTO 27.3 % (24.0-44.0); MEAN CORPUSCULAR HEMOGLOBIN 27.8 pg (28.0-32.0); MEAN CORPUSCULAR HGB CONC 32.8 g/dl (32.0-36.0); MEAN CORPUSCULAR VOLUME 84.6 fl (83.0-99.0); MEAN PLATELET VOLUME 11.2 fl (9.4-12.3); MONOCYTES ABSOLUTE AUTO 0.4 K/mm3 (0.0-0.8); MONOCYTES PERCENT AUTO 6.4 % (0.0-8.0); NEUTROPHILS ABSOLUTE AUTO 4.1 K/mm3 (1.8-7.7); NEUTROPHILS PERCENT AUTO 63.8 % (41.0-71.0); PLATELET COUNT,PLT 200 K/mm3 (150-400); RED BLOOD CELL COUNT 5.33 M/mm3 (4.10-5.30)
[2024-12-18 19:25] VITALS: BP 137/77; PULSE 85
[2024-12-18 19:27] LABS: A/G RATIO 0.9 (1-2); ALBUMIN 3.5 g/dl (3.4-5.0); ANION GAP 13.5 (5-15); BILIRUBIN TOTAL 0.2 mg/dL (0.2-1.0); BUN/CREATININE RATIO 21.3 (14-18); C-REACTIVE PROTEIN 0.1 mg/dL (<0.30); CALCIUM 9.2 mg/dL (8.5-10.1); CREATININE 0.8 mg/dL (0.55-1.02); EST CRCL DRUG DOSING (CG) 58.41 mL/min; PROTEIN TOTAL,TP 7.5 g/dl (6.4-8.2)
[2024-12-18 19:31] LABS: POTASSIUM,K 3.5 mEq/L (3.5-5.1)
[2024-12-18] MEDS: Sodium Chloride 0.9% 10 ML Syringe FLUSH PRN (19:42)
[2024-12-18] MEDS: Iopamidol 612 MG/ML 100 ML Bottle IVPUSH ONE (19:42)
[2024-12-18 20:27] LABS: APPEARANCE,URINE CLEAR (Clear); BILIRUBIN,URINE NEGATIVE (Negative); COLOR,URINE LIGHT YELLOW (Yellow); GLUCOSE,URINE NEGATIVE (Negative); KETONES,URINE NEGATIVE (Negative); LEUKOCYTE ESTERASE,URINE 1+ (Negative); NITRITE,URINE NEGATIVE (Negative); OCCULT BLOOD,URINE TRACE-INTACT (Negative); PROTEIN,URINE NEGATIVE (Negative); UROBILINOGEN,URINE 0.2 (0.2-1.0)
[2024-12-18 20:34] LABS: BACTERIA,URINE FEW /hpf (FEW); MUCUS,URINE NOT SEEN /hpf (FEW); RBC,URINE 0-5 /hpf (0-5); SQUAMOUS EPITHELIAL CELLS,UR 0-5 /hpf (0-5)
== END 2024-12-18 21:24 | disposition home or self-care (01) ==
LOC: JD.ED 18:28
DX: N39.0 Urinary tract infection, site not specified (principal); E78.00 Pure hypercholesterolemia, unspecified; Z88.5 Allergy status to narcotic agent; Z79.899 Other long term (current) drug therapy; Z86.16 Personal history of COVID-19
CPT/HCPCS: 36415; 74177; 80053; 81001; 83690; 84484; 85025; 86140; 93005; 96361; 96374; 96375; 96376; 99284; J2405; J7030; Q9967; 93010

== ENCOUNTER 2025-01-26 19:33 | Emergency (ER) | payer MEDICAID ==
[2025-01-26 20:02] LABS: APPEARANCE,URINE CLEAR (Clear); BILIRUBIN,URINE NEGATIVE (Negative); COLOR,URINE YELLOW (Yellow); GLUCOSE,URINE NEGATIVE (Negative); KETONES,URINE NEGATIVE (Negative); LEUKOCYTE ESTERASE,URINE 1+ (Negative); NITRITE,URINE NEGATIVE (Negative); OCCULT BLOOD,URINE NEGATIVE (Negative); PROTEIN,URINE TRACE (Negative); UROBILINOGEN,URINE 0.2 (0.2-1.0)
[2025-01-26 20:11] LABS: BASOPHILS PERCENT AUTO 0.7 % (0.0-1.0); EOSINOPHILS ABSOLUTE AUTO 0.1 K/mm3 (0.0-0.4); EOSINOPHILS PERCENT AUTO 2.4 % (0.0-6.0); HEMATOCRIT 41.4 % (37.0-47.0); HEMOGLOBIN 13.4 gm/dl (12.0-16.0); IMMATURE GRAN ABSOLUTE AUTO 0.01 K/mm3 (0.00-0.05); IMMATURE GRAN PERCENT AUTO 0.2 % (0.0-0.4); LYMPHOCYTES ABSOLUTE AUTO 1.8 K/mm3 (1.0-4.8); LYMPHOCYTES PERCENT AUTO 30.8 % (24.0-44.0); MEAN CORPUSCULAR HEMOGLOBIN 27.5 pg (28.0-32.0); MEAN CORPUSCULAR HGB CONC 32.4 g/dl (32.0-36.0); MEAN PLATELET VOLUME 11.1 fl (9.4-12.3); MONOCYTES ABSOLUTE AUTO 0.5 K/mm3 (0.0-0.8); MONOCYTES PERCENT AUTO 8.6 % (0.0-8.0); NEUTROPHILS ABSOLUTE AUTO 3.4 K/mm3 (1.8-7.7); NEUTROPHILS PERCENT AUTO 57.3 % (41.0-71.0); PLATELET COUNT,PLT 187 K/mm3 (150-400); RED BLOOD CELL COUNT 4.87 M/mm3 (4.10-5.30)
[2025-01-26 20:16] LABS: RBC,URINE 0-5 /hpf (0-5); SQUAMOUS EPITHELIAL CELLS,UR 0-5 /hpf (0-5); WBC,URINE 20-30 /hpf (0-5)
[2025-01-26 20:17] LABS: BACTERIA,URINE MODERATE /hpf (FEW); MUCUS,URINE MODERATE /hpf (FEW)
[2025-01-26] MEDS: Iopamidol 612 MG/ML 100 ML Bottle IVPUSH ONE (20:30)
[2025-01-26] MEDS: Sodium Chloride 0.9% 10 ML Syringe FLUSH PRN (20:30)
[2025-01-26] MEDS: Ondansetron 4 MG/2 ML SDV IVPUSH ONE (20:34)
[2025-01-26 20:35] LABS: A/G RATIO 0.9 (1-2); ALANINE AMINOTRANSFERASE,ALT 14 U/L (14-59); ALBUMIN 3.3 g/dl (3.4-5.0); ALKALINE PHOSPHATASE 121 U/L (46-116); ANION GAP 13.7 (5-15); ASPARTATE AMNIOTRANSFERASE,AST 3 U/L (15-37); BILIRUBIN TOTAL 0.2 mg/dL (0.2-1.0); BLOOD UREA NITROGEN,BUN 15 mg/dL (7-18); BUN/CREATININE RATIO 21.4 (14-18); CARBON DIOXIDE,CO2 26 mEq/L (21-32); CHLORIDE,CL 107 mEq/L (98-107); CREATININE 0.7 mg/dL (0.55-1.02); ESTIMATED GFR 98 mL/min (>60); GLUCOSE RANDOM 105 mg/dL (70-99); LIPASE 27 U/L (16-77); MAGNESIUM 2.1 mg/dL (1.8-2.4); SODIUM,NA 143 mEq/L (136-145)
[2025-01-26] MEDS: Sodium Chloride 0.9% 1,000 ML IV SCH ×2 (20:37→20:39)
[2025-01-26 20:40] LABS: C-REACTIVE PROTEIN < 0.05 mg/dL (<0.30); POTASSIUM,K 3.7 mEq/L (3.5-5.1)
[2025-01-26] MEDS: cefTRIAXone 2 GM in Sodium Chloride 0.9% 100 ML IV ONE (20:41)
[2025-01-26 22:01] VITALS: BP 136/78; PULSE 73
== END 2025-01-26 22:00 | disposition home or self-care (01) ==
LOC: JD.ED 19:33
DX: R19.7 Diarrhea, unspecified (principal); R11.10 Vomiting, unspecified; E66.9 Obesity, unspecified; Z88.5 Allergy status to narcotic agent; Z79.899 Other long term (current) drug therapy; Z86.16 Personal history of COVID-19; Z90.49 Acquired absence of other specified parts of digestive tract; Z90.710 Acquired absence of both cervix and uterus
CPT/HCPCS: 36415; 74177; 80053; 81001; 83690; 83735; 85025; 86140; 87086; 87493; 96365; 96375; 99284; J0696; J2405; J7030; Q9967

== ENCOUNTER 2025-08-07 15:39 | Emergency (ER) | payer MEDICAID ==
[2025-08-07] MEDS: Acetaminophen/oxyCODONE 325-5 MG Tab PO ONE (18:19)
[2025-08-07] MEDS: Ketorolac 60 MG/2 ML SDV IM ONE (18:20)
[2025-08-07 18:31] VITALS: BP 144/79; PULSE 84
== END 2025-08-07 19:12 | disposition home or self-care (01) ==
LOC: JD.ED 15:39
DX: M79.651 Pain in right thigh (principal); Z88.5 Allergy status to narcotic agent; Z79.899 Other long term (current) drug therapy; Z86.16 Personal history of COVID-19; Z90.710 Acquired absence of both cervix and uterus; Z90.49 Acquired absence of other specified parts of digestive tract
CPT/HCPCS: 93971; 96372; 99283; A9270; J1885; 99284